=== PATIENT | female | born 1960 | race Caucasian/White ===

== ENCOUNTER → 2020-09-21 13:14 | Outpatient (BNVA) | payer OTHER, SELFPAY | PROVIDERS: PCP Family Medicine; Visit Provider Internal Medicine Cardiovascular Disease | DX: Z76.89 Persons encountering health services in other specified circumstances (principal) ==

== ENCOUNTER → 2020-10-19 10:58 | Outpatient (BNVA) | payer OTHER, SELFPAY | PROVIDERS: PCP Family Medicine; Visit Provider Internal Medicine | DX: Z76.89 Persons encountering health services in other specified circumstances (principal) ==

== ENCOUNTER 2020-11-03 10:31 | Outpatient (REF) | payer OTHER, SELFPAY ==
[2020-11-03 14:15] LABS: MANUAL DIFF FLAG NO
[2020-11-03 14:21] LABS: Basophils Percent Auto 0.6 % (0-2); Eosinophils Absolute Auto 0.3 X10*3/uL (0.0-0.4); Eosinophils Percent Auto 4.9 % (0-4); Hemoglobin 14.1 g/dl (12.0-16.0); Imm Gran Abs Auto 0.03 X10*3/uL (0.00-0.03); Imm Gran Pct Auto 0.5 % (0.0-0.4); Lymphocytes Absolute Auto 2.1 X10*3/uL (1.2-4.9); Lymphocytes Percent Auto 32.2 % (20-40); Mean Corpuscular HGB Conc 32.8 g/dl (31.0-35.0); Mean Corpuscular Hemoglobin 31.1 pg (27.0-33.0); Mean Corpuscular Volume 94.9 fL (80-98); Mean Platelet Volume 9.4 fL (9.4-12.3); Monocytes Absolute Auto 0.6 X10*3/uL (0.1-1.2); Monocytes Percent Auto 9.5 % (2-11); Neutrophils Absolute Auto 3.4 X10*3/uL (2.0-8.3); Neutrophils Percent Auto 52.3 % (45-73); Platelet Count 326 X10*3/uL (160-400); Red Blood Count 4.53 X10*6/uL (4.20-5.50); Red Cell Distribution Width 12.3 % (11.0-16.0); White Blood Count 6.5 X10*3/uL (4.8-10.8)
[2020-11-03 14:39] LABS: Blood Urea Nitrogen 8 mg/dL (9-16); Estimated Glomerular Filt Rate > 60
[2020-11-03 15:00] LABS: Free T4 (Free Thyroxine) 1.43 ng/dL (0.71-1.85)
== END 2020-11-03 10:32 | disposition home or self-care (01) ==
LOC: HO.10HDL 10:31
PROVIDERS: Absent Provider Internal Medicine; PCP Family Medicine; Visit Provider Family Medicine
DX: E03.9 Hypothyroidism, unspecified (principal); R06.02 Shortness of breath
CPT/HCPCS: 36415; 82565; 84439; 84520; 85025

== ENCOUNTER 2020-12-09 08:46 | Outpatient (REF) | payer OTHER, SELFPAY ==
--- NOTE | 2020-12-09 13:44 | MHC.AU.P13 ---
Hearing Aid Evaluation- Binaural Date of Visit: 12/09/20 Description of Hearing: Mild to moderate sensorineural hearing loss bilaterally Additional Information: Patient reports difficulty hearing conversation, hearing the television, and hearing on the phone. She has COPD and uses oxygen. The oxygen machine is a low, but steady, source of background noise. 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 She tried wearing ear plugs, but then found she could not hear alarms from the machines or hear others trying to get her attention. Hearing aid options were discussed. Patient would like rechargeable, as it would be easier for her needs. Hearing Instrument Selection: Right Ear: Cellar Worker: Phonak Model: Audeo P70-R Battery Size: Rechargeable Color: P12 Job Putter Up And Ticket Preparer: 1M Left Ear: Cellar Worker: Phonak Model: Audeo P70-R Battery Size: Rechargeable Color: P1 Job Putter Up And Ticket Preparer: 1M Plan: Action Taken/Action Needed: Hearing Fitting to be scheduled when materials arrive Diagnosis Code(s): Primary Diagnosis: H90.3 Bilateral Sensorineural Hearing Loss Signature: Provider: Erwin Kim, [facility]
== END 2020-12-09 08:47 | disposition home or self-care (01) ==
LOC: HO.HAP 08:46
PROVIDERS: Visit Provider Family Medicine
DX: Z46.1 Encounter for fitting and adjustment of hearing aid (principal); H90.3 Sensorineural hearing loss, bilateral
CPT/HCPCS: 92591

== ENCOUNTER 2020-12-17 08:38 | Outpatient (REF) | payer OTHER, SELFPAY ==
--- NOTE | 2020-12-17 10:35 | MHC.AU.P13 ---
Hearing Instrument Fitting- Adult- Binaural Date of Visit: 12/17/20 Hearing Instruments Dispensed: Right Ear: Reimbursement Representative: Phonak Model: Audeo P70-R Serial Number: [id number] Repair Warranty: 03/07/2024 Loss and Damage Warranty: 03/07/2024 Battery Size: Rechargeable Color: P12 Social Service Agency Director: 0M Type of Dome: Small Open Type of Wax Guard: CeruShield Left Ear: Reimbursement Representative: Phonak Model: Audeo P70-R Serial Number: [id number] RepairWarranty: 03/07/2024 Loss and Damage Warranty: 03/07/2024 Battery Size: Rechargeable Color: P1 Social Service Agency Director: 0M Type of Dome: Small Open Type of Wax Guard: CeruShield Summary of Fitting: Feedback conference manager run. Verifit performed and levels adjusted. Target gain is at 100%. Patient was pleased with the sound of the instruments and did not feel any additional changes were necessary. Hearing aid care and use were discussed and practiced. Hearing aids were paired to her phone. At this time, tap control is turned off. Volume button is activated. The mian was not downloaded, as patient does not feel she would use it often. Recommendations: Recommendations: A hearing instrument follow-up was scheduled. Diagnosis Code(s): Primary Diagnosis: H90.3 Bilateral Sensorineural Hearing Loss Signature: Provider: Erwin Kim, [facility]
== END 2020-12-17 08:39 | disposition home or self-care (01) ==
LOC: HO.HAP 08:38
PROVIDERS: Visit Provider Otolaryngology
DX: Z46.1 Encounter for fitting and adjustment of hearing aid (principal); H90.3 Sensorineural hearing loss, bilateral
CPT/HCPCS: V5011; V5020; V5160; V5261

== ENCOUNTER 2021-01-04 09:04 | Outpatient (REF) | payer OTHER, SELFPAY ==
--- NOTE | 2021-01-04 13:25 | MHC.AU.P13 ---
Hearing Instrument Follow-Up- Binaural Date of Visit: 01/04/21 Painter Touch Up Used: Right Ear: Shovel Logger: Phonak Model: Audeo P70-R Serial Number: [id number] Repair Warranty: 03/07/2024 Loss and Damage Warranty: 03/07/2024 Battery Size: Rechargeable Color: P12 Advanced Seal Delivery System: 0M Type of Dome: Small Open Type of Wax Guard: CeruShield Left Ear: Shovel Logger: Phonak Model: Audeo P70-R Serial Number: [id number] RepairWarranty: 03/07/2024 Loss and Damage Warranty: 03/07/2024 Battery Size: Rechargeable Color: P1 Advanced Seal Delivery System: 0M Type of Dome: Small Open Type of Wax Guard: CeruShield Follow-Up Summary: Patient reports the hearing aids have been helping significantly. She is able to hear her grandchildren and others without asking for repetition. 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 She finds some wetness on the left dome after using them. She also finds the right side seems to cut in and out. Hearing aids were inspected. Right hearing aid is working well for the moment. As a preventative measure, the right 0M garde manager was replaced. Wax trap changed in the left garde manager and domes replaced on both. Otoscopy performed. Dry, flaky skin noted in both canals, with mild redness. No wetness noted at the moment. Impressions were taken bilaterally without incident for custom slim tips. We will see if a different, smoother material might help avoid some of the itchiness/irritation against the psoriasis. We will also see if this helps with perceived intermittency in the right instrument, which may be a fit issue. Recommendations: Patient will be contacted when materials have arrived. A follow-up with PCP or referral to Ear, Nose, and Throat may be warranted for medical management of psoriasis in ear canals. Diagnosis Code(s): Primary Diagnosis: H90.3 Bilateral Sensorineural Hearing Loss Signature: Provider: Erwin Kim, [facility]
== END 2021-01-04 09:05 | disposition home or self-care (01) ==
LOC: HO.HAP 09:04
PROVIDERS: Visit Provider Family Medicine
DX: Z46.1 Encounter for fitting and adjustment of hearing aid (principal); H90.3 Sensorineural hearing loss, bilateral
CPT/HCPCS: V5275

== ENCOUNTER → 2021-01-14 11:19 | Outpatient (BNVA) | payer OTHER, SELFPAY | PROVIDERS: PCP Family Medicine; Visit Provider Internal Medicine | DX: J44.9 Chronic obstructive pulmonary disease, unspecified (principal); J96.91 Respiratory failure, unspecified with hypoxia; Z79.51 Long term (current) use of inhaled steroids; Z79.899 Other long term (current) drug therapy; Z87.891 Personal history of nicotine dependence | CPT/HCPCS: 99212 ==

== ENCOUNTER 2021-01-15 11:05 | Outpatient (REF) | payer OTHER, SELFPAY ==
--- NOTE | 2021-01-15 14:24 | MHC.AU.HFU ---
Hearing Instrument Follow-Up- Binaural Date of Visit: 01/15/21 Right Ear: Industrial Illuminating Engineer: Phonak Model: Audeo P70-R Serial Number: [id number] Repair Warranty: 03/07/2024 Loss and Damage Warranty: 03/07/2024 Battery Size: Rechargeable Color: P12 Cardboard Cutter: 0M Type of Mold: Slim Tip Type of Wax Guard: CeruShield Left Ear: Industrial Illuminating Engineer: Phonak Model: Audeo P70-R Serial Number: [id number] RepairWarranty: 03/07/2024 Loss and Damage Warranty: 03/07/2024 Battery Size: Rechargeable Color: P1 Cardboard Cutter: 0M Type of Mold: Slim Tip Type of Wax Guard: CeruShield Follow-Up Summary: Patient's new slim tips were placed on her receivers. Patient reported they felt much more comfortable. She will let us know if irritation persists once she has been wearing them for a longer period of time. Recommendations: Hearing instrument follow-up or maintenance as needed. Please contact our clinic with any questions or concerns. Patient will call if problems persist. Diagnosis Code(s): Primary Diagnosis: H90.3 Bilateral Sensorineural Hearing Loss Signature: Provider: Erwin Kim, [facility]
== END 2021-01-15 11:06 | disposition home or self-care (01) ==
LOC: HO.HAP 11:05
PROVIDERS: Visit Provider Otolaryngology
DX: Z46.1 Encounter for fitting and adjustment of hearing aid (principal); H90.3 Sensorineural hearing loss, bilateral
CPT/HCPCS: V5264

== ENCOUNTER 2021-03-31 09:51 | Outpatient (REF) | payer OTHER, SELFPAY ==
[2021-03-31 13:54] LABS: Alanine Aminotransferase 14 U/L (0-31); Anion Gap 15 (12-20); Blood Urea Nitrogen 7 mg/dL (9-16); Carbon Dioxide 30 mmol/L (22-29); Chloride 100 mmol/L (96-108); Estimated Glomerular Filt Rate > 60; Potassium 4.6 mmol/L (3.3-5.1); Sodium 140 mmol/L (135-145)
== END 2021-03-31 09:52 | disposition home or self-care (01) ==
LOC: HO.10HDL 09:51
PROVIDERS: Visit Provider Family Medicine
DX: E78.00 Pure hypercholesterolemia, unspecified (principal); I10 Essential (primary) hypertension; E03.9 Hypothyroidism, unspecified; Z79.899 Other long term (current) drug therapy
CPT/HCPCS: 36415; 80051; 82550; 82565; 84439; 84460; 84520

== ENCOUNTER → 2021-05-20 11:05 | Outpatient (BNVA) | payer OTHER, SELFPAY | PROVIDERS: PCP Family Medicine; Visit Provider Internal Medicine | DX: J96.91 Respiratory failure, unspecified with hypoxia (principal); J44.9 Chronic obstructive pulmonary disease, unspecified | CPT/HCPCS: 99212 ==

== ENCOUNTER → 2021-06-03 12:44 | Outpatient (BNVA) | payer OTHER, SELFPAY | PROVIDERS: PCP Family Medicine; Visit Provider Internal Medicine Cardiovascular Disease | DX: I42.2 Other hypertrophic cardiomyopathy (principal) | CPT/HCPCS: 93005; 99212 ==

== ENCOUNTER 2021-09-01 14:16 | Outpatient (REF) | payer OTHER, SELFPAY ==
--- NOTE | ~2021-09-01 | MM_ITS ---
EXAMINATION: MM SCREENING DIGITAL BREAST TOMOSYNTHESIS, BILATERAL CLINICAL INFORMATION: Screening. Asymptomatic. The lifetime risk of breast cancer based on the Tyrer-Cuzick Model is 5%. COMPARISON: Mammography: 06/12/2020, 10/02/2018, 08/09/2018, 07/20/2017 TECHNIQUE: Digital breast tomosynthesis is performed in both the craniocaudal and mediolateral oblique views along with computer-aided detection (CAD). Synthesized 2D images are generated from the tomosynthesis. Additional right CC view is provided. FINDINGS: There are scattered areas of fibroglandular density (ACR BI-RADS breast composition Category b). There are no significant masses, abnormal calcifications, or other abnormalities. MM/MM tomosynthesis screening BI IMPRESSION: No mammographic evidence of malignancy. ASSESSMENT: BI-RADS 1: Negative RECOMMENDATION: Routine annual mammography screening. This patient's information was entered into a reminder system with a target due date for their next mammogram.
== END 2021-09-01 14:17 | disposition home or self-care (01) ==
LOC: HO.MAMMO 14:16
PROVIDERS: Visit Provider Family Medicine
DX: Z12.31 Encounter for screening mammogram for malignant neoplasm of breast (principal)
CPT/HCPCS: 77063; 77067

== ENCOUNTER 2021-09-30 13:27 | Emergency (ER) | payer OTHER, SELFPAY ==
--- NOTE | ~2021-09-30 | XR_ITS ---
EXAMINATION: XR CHEST CLINICAL INFORMATION: Shortness of breath COMPARISON: January 02, 2019 and studies dating back to January 12, 2015 TECHNIQUE: AP portable view of the chest was obtained. FINDINGS: No confluent pneumonitis identified. Heart normal size. No evidence of pneumothorax or pleural effusion. No evidence of pulmonary edema. There are some increased interstitial markings present consistent with some degree of chronic interstitial lung disease. There are also noted to be changes of emphysema about the upper lobes bilaterally. XR/XR chest 1V IMPRESSION: Mild interstitial lung disease. Changes of emphysema.
[2021-09-30 13:33] VITALS: BP 129/79; BP 156/80; PULSE 75; PULSE 84; RESP 20; TEMP 36.6; O2SAT 94; O2SAT 95; BMI 26.4
--- NOTE | 2021-09-30 13:36 | ECG_ITS ---
Test Reason : DYSPNEA Blood Pressure : / mmHG Vent. Rate : 069 BPM Atrial Rate : 069 BPM P-R Int : 116 ms QRS Dur : 084 ms QT Int : 404 ms P-R-T Axes : 071 062 072 degrees QTc Int : 432 ms Normal sinus rhythm Normal ECG When compared with ECG of 02-JAN-2019 13:26, No significant change was found Referred By: Generic ED Physician Electronically Signed By:ALO MOTA
--- NOTE | 2021-09-30 14:05 | ED.SOB ---
HPI - SOB/Dyspnea General Chief Complaint: Dyspnea Stated Complaint: SOB Time Seen by Provider: 09/30/21 14:05 History of Present Illness HPI Narrative: Patient is 61 years old with a history of COPD. Presented today with having gone to urgent care for a COVID test. Patient received her coronavirus vaccine. Patient grandson tested positive for COVID. She was in contact with him. Patient denies any chest pain shortness of breath diaphoresis. While trying to get her walker she got very short of breath. Requiring additional oxygen. His symptoms subsequently subsided. Denies any chest pain the knees episodes. Had a history of the same thing in the past. No fever no chills. No coughing no congestion or upper respiratory symptoms. COVID test was actually done at the urgent care center was negative. No vomiting no diaphoresis. No new medication. Patient from home. Related Data Home Medications Medication Instructions Recorded Confirmed albuterol sulfate 90 mcg/actuation 2 puff PO QID PRN 09/21/20 06/03/21 aerosol inhaler levothyroxine 100 mcg tablet 100 mcg PO DAILY 09/21/20 06/03/21 pantoprazole 40 mg tablet,delayed 40 mg PO DAILY 09/21/20 06/03/21 release sertraline 50 mg tablet 50 mg PO DAILY 09/21/20 06/03/21 simvastatin 40 mg tablet 40 mg PO BEDTIME 09/21/20 06/03/21 Previous Rx's Medication Instructions Recorded umeclidinium 62.5 mcg/actuation 1 inh INHALATION DAILY 30 Days #30 09/28/20 blister powder for inhalation ea fluticasone furoate 200 1 inh INHALATION DAILY #60 cap 02/10/21 mcg-vilanterol 25 mcg/dose inhalation powder (Breo Ellipta) Allergies Allergy/AdvReac Type Severity Reaction Status Date / Time carvedilol Allergy Unknown chest Verified 06/03/21 13:05 tighness,sob,difficulty breathing lorazepam [Ativan] Allergy Unknown affects Verified 06/03/21 13:05 psychy Review of Systems Review of Systems: No fever no chills Positive generalized malaise No cough no congestion or upper respiratory symptoms. No diaphoresis. Yes all other systems are reviewed and are negative PMFSH Past Medical History Attestation statement: The following information was validated with the patient. Source: unable to obtain Medical History (Updated 09/30/21 @ 16:19 by Evelin Mobley MD) Respiratory failure with hypoxia Surgical History History of cardiac cath History of skin graft Hx of eye surgery Family History Family History Father HTN (hypertension) Diabetes CVD (cardiovascular disease) Mother Diabetes HTN (hypertension) Social History Social History Alcohol intake: never Patient Tobacco Use Status: Former Tobacco user Quit Date: 2014 Years Smoked: 35+ Advance Directives: Yes Advance Directives Information Provided: No Advance Directives on File: No Patient : No Physical Exam Vital Signs: Vital Signs: Last Vital Signs Temp 98 F 09/30/21 13:33 Pulse 70 09/30/21 14:53 Resp 20 09/30/21 14:53 BP 112/62 09/30/21 14:53 Pulse Ox 94 09/30/21 14:53 Oxygen Flow Rate 2 09/30/21 13:33 BMI result Body Mass Index 26.4 Appearance: Alert. Oriented X3. No acute distress. Eyes: Pupils equal, round and reactive to light. ENT: Pharynx normal. Neck: Normal inspection. Neck supple. No lymph nodes noted. No crepitus CVS: Normal heart rate and rhythm. Pulses normal. Normal S1 and S2 Respiratory: Diminished breath sounds bilaterally. Abdomen: Soft and nontender. No rigidity. No distention. good BS x4 Skin: Skin warm and dry. Normal skin color. Normal skin turgor. Extremities: No lower extremity edema. Neurovascular intact to all extremities. No Lacerations. No Rash Neuro: Oriented X 3. No motor deficit. No sensory deficit. Moving all extermities. No slurred speech MDM - SOB/Dyspnea MDM Narrative Medical decision making narrative: Patient's EKG showed a sinus pattern heart rate is 70 ND QRS QT within normal limits there is no significant change when comparing her EKG to previous. Patient has no symptoms currently. Has a history of having shortness of breath when she exerts herself. Likely this is baseline will get x-ray anyway given her constant O2 dependency. Will check baseline electrolytes. Currently in stable condition. Electrolytes a baseline. Hemoglobin 13. No distress. O2 sat remains at 95% on 2 L. this is baseline for patient. Will discharge patient home. Lab Data Result diagrams: 09/30/21 14:49 09/30/21 15:43 Labs: Lab Results 09/30/21 09/30/21 Range/Units 14:49 15:43 WBC 10.7 (4.8-10.8) X10*3/uL RBC 4.20 (4.20-5.50) X10*6/uL Hgb 13.0 (12.0-16.0) g/dl Hct 39.9 (37.0-47.0) % MCV 95.0 (80.0-98.0) fL MCH 31.0 (27.0-33.0) pg MCHC 32.6 (31.0-35.0) g/dl RDW 13.2 (11.0-16.0) % Plt Count 327 (160-400) X10*3/uL MPV 9.0 L (9.4-12.3) fL Immature Gran % (Auto) 0.4 (0.0-0.4) % Neut % (Auto) 67.3 (45-73) % Lymph % (Auto) 14.2 L (20-40) % [place] % (Auto) 7.5 (2-11) % Eos % (Auto) 10.0 H (0-4) % Baso % (Auto) 0.6 (0-2) % Lymph # (Auto) 1.5 (1.2-4.9) X10*3/uL [place] # (Auto) 0.8 (0.1-1.2) X10*3/uL Eos # (Auto) 1.1 H (0.0-0.4) X10*3/uL Baso # (Auto) 0.1 (0.0-0.2) X10*3/uL Abs Immat Gran (auto) 0.04 H (0.00-0.03) X10*3/uL Absolute Neuts (auto) 7.2 (2.0-8.3) x10*3/uL Absolute Nucleated RBC 0.000 (0.0-0.012) X10*3/uL Nucleated RBC % (auto) 0.0 (0.0-0.2) /100WBC Sodium 140 (135-145) mmol/L Potassium 4.7 (3.3-5.1) mmol/L Chloride 101 (96-108) mmol/L Carbon Dioxide 32 H (22-29) mmol/L Anion Gap 12 (12-20) BUN 11 (9-16) mg/dL Creatinine 0.64 (0.5-1.4) mg/dL Estim Creat Clear Calc 75.4 Estimated GFR > 60 Random Glucose 96 (60-115) mg/dL Calcium 9.2 (8.4-10.2) mg/dL Discharge Plan Discharge Clinical Impression: COPD (chronic obstructive pulmonary disease) Patient Disposition: Home, Self-Care Instructions: COPD (Chronic Obstructive Pulmonary Disease) (ED) Prescriptions: No Action umeclidinium 62.5 mcg/actuation blister with device 1 inh inhalation DAILY 30 Days Qty: 30 RF: 3 fluticasone furoate-vilanterol [Breo Ellipta] 200-25 mcg/dose blister with device 1 inh inhalation DAILY Qty: 60 RF: 3 pantoprazole 40 mg tablet,delayed release (DR/EC) 40 mg PO DAILY RF: 0 simvastatin 40 mg tablet 40 mg PO BEDTIME RF: 0 albuterol sulfate 90 mcg/actuation HFA aerosol inhaler 2 puff PO QID PRNRF: 0 levothyroxine 100 mcg tablet 100 mcg PO DAILY RF: 0 sertraline 50 mg tablet 50 mg PO DAILY RF: 0 Referrals: Bakari Lozano MD [Primary Care Provider] - 2 days
[2021-09-30 14:53] VITALS: BP 112/62; PULSE 70; RESP 20; O2SAT 94
[2021-09-30 14:57] LABS: MANUAL DIFF FLAG NO
[2021-09-30 14:58] LABS: Basophils Absolute Auto 0.1 X10*3/uL (0.0-0.2); Basophils Percent Auto 0.6 % (0-2); Eosinophils Absolute Auto 1.1 X10*3/uL (0.0-0.4); Hematocrit 39.9 % (37.0-47.0); Imm Gran Abs Auto 0.04 X10*3/uL (0.00-0.03); Imm Gran Pct Auto 0.4 % (0.0-0.4); Lymphocytes Absolute Auto 1.5 X10*3/uL (1.2-4.9); Lymphocytes Percent Auto 14.2 % (20-40); Mean Corpuscular HGB Conc 32.6 g/dl (31.0-35.0); Monocytes Absolute Auto 0.8 X10*3/uL (0.1-1.2); Monocytes Percent Auto 7.5 % (2-11); Neutrophils Absolute Auto 7.2 x10*3/uL (2.0-8.3); Neutrophils Percent Auto 67.3 % (45-73); Platelet Count 327 X10*3/uL (160-400); Red Cell Distribution Width 13.2 % (11.0-16.0); White Blood Count 10.7 X10*3/uL (4.8-10.8)
[2021-09-30 16:11] LABS: Anion Gap 12 (12-20); Blood Urea Nitrogen 11 mg/dL (9-16); Calcium 9.2 mg/dL (8.4-10.2); Carbon Dioxide 32 mmol/L (22-29); Chloride 101 mmol/L (96-108); Creatinine Clr Calc Pharmacy 75.4; Estimated Glomerular Filt Rate > 60; Glucose Random 96 mg/dL (60-115); Potassium 4.7 mmol/L (3.3-5.1); Sodium 140 mmol/L (135-145)
== END 2021-09-30 17:15 | disposition home or self-care (01) ==
PROVIDERS: Emergency Provider Emergency Medicine Emergency Medical Services; PCP Family Medicine
DX: J44.9 Chronic obstructive pulmonary disease, unspecified (principal)
CPT/HCPCS: 36415; 71045; 80048; 85025; 93005; 99283; 99284

== ENCOUNTER 2021-10-02 16:29 | Emergency (ER) | payer OTHER, SELFPAY ==
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
--- NOTE | 2021-10-02 17:04 | ECG_ITS ---
Test Reason : CHEST PAIN Blood Pressure : / mmHG Vent. Rate : 081 BPM Atrial Rate : 081 BPM P-R Int : 122 ms QRS Dur : 084 ms QT Int : 394 ms P-R-T Axes : 053 044 060 degrees QTc Int : 457 ms Artifact in tracing Normal sinus rhythm Normal ECG When compared with ECG of 30-SEP-2021 13:41, No significant change was found Referred By: Idalia Junior Electronically Signed By:ALO MOTA
[2021-10-02 17:10] VITALS: BP 134/77; BP 144/87; PULSE 85; RESP 22; O2SAT 96; BMI 25.4
[2021-10-02 17:12] LABS: MANUAL DIFF FLAG NO
[2021-10-02 17:13] LABS: Basophils Absolute Auto 0.1 X10*3/uL (0.0-0.2); Basophils Percent Auto 0.3 % (0-2); Eosinophils Absolute Auto 0.4 X10*3/uL (0.0-0.4); Eosinophils Percent Auto 1.8 % (0-4); Hematocrit 39.6 % (37.0-47.0); Imm Gran Abs Auto 0.14 X10*3/uL (0.00-0.03); Imm Gran Pct Auto 0.7 % (0.0-0.4); Lymphocytes Absolute Auto 1.4 X10*3/uL (1.2-4.9); Lymphocytes Percent Auto 6.8 % (20-40); Mean Corpuscular HGB Conc 32.8 g/dl (31.0-35.0); Mean Corpuscular Hemoglobin 31.5 pg (27.0-33.0); Mean Corpuscular Volume 95.9 fL (80.0-98.0); Mean Platelet Volume 8.8 fL (9.4-12.3); Monocytes Absolute Auto 1.1 X10*3/uL (0.1-1.2); Monocytes Percent Auto 5.3 % (2-11); Neutrophils Absolute Auto 17.9 x10*3/uL (2.0-8.3); Neutrophils Percent Auto 85.1 % (45-73); Platelet Count 334 X10*3/uL (160-400); Red Blood Count 4.13 X10*6/uL (4.20-5.50); White Blood Count 21.1 X10*3/uL (4.8-10.8)
[2021-10-02 17:31] LABS: Alanine Aminotransferase 20 U/L (0-31); Albumin Level 4.1 g/dL (3.5-5.0); Alkaline Phosphatase 89 U/L (39-117); Anion Gap 13 (12-20); Aspartate Amino Transferase 25 U/L (5-31); Bilirubin Total 0.3 mg/dL (0.0-1.0); Blood Urea Nitrogen 13 mg/dL (9-16); Calcium 9.3 mg/dL (8.4-10.2); Carbon Dioxide 28 mmol/L (22-29); Chloride 102 mmol/L (96-108); Creatinine Clr Calc Pharmacy 67.7; Estimated Glomerular Filt Rate > 60; Glucose Random 123 mg/dL (60-115); Magnesium 2.1 mg/dL (1.6-2.6); Potassium 4.6 mmol/L (3.3-5.1); Sodium 138 mmol/L (135-145); Total Protein 7.6 g/dL (6.5-8.0)
[2021-10-02] MEDS: iohexoL 350 MG/ML 100 ML INFUS..BTL 85 ML IV (17:41)
[2021-10-02 17:44] VITALS: RESP 22
[2021-10-02] MEDS: ondansetron HCL 4 MG/2 ML VIAL IVPUSH (17:44)
[2021-10-02] MEDS: HYDROmorphone HCl 0.5 MG/0.5 ML SYRINGE IVPUSH (17:44)
[2021-10-02 18:10] LABS: INTERNATIONAL NORM RATIO 1.1 (0.9-1.1); Prothrombin Time 12.2 SEC (9.9-13.0)
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
[2021-10-02 19:02] VITALS: BP 129/74; PULSE 82; RESP 20; TEMP 36.7; O2SAT 90
[2021-10-02 19:19] VITALS: BP 143/73; PULSE 87; RESP 18; O2SAT 90
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
[2021-10-02 19:29] VITALS: RESP 15
[2021-10-02] MEDS: HYDROmorphone HCl 1 MG/ML SYRINGE IVPUSH (19:29)
[2021-10-02 19:35] VITALS: PULSE 86; O2SAT 93
[2021-10-02] MEDS: Albuterol Sulfate (0.083%) 2.5 MG/3 ML VIAL.NEB 5 MG INHALE (19:35)
--- NOTE | 2021-10-02 19:36 | PC.NURSE ---
RT to bedside to administer neb tx, told this RN not to administer MDI tx at this time. Pt receiving neb tx at this time, medicated for pain, reports improvement at this time to 5/10 pain. Pt continues to await ALS transport to [facility].
[2021-10-02 19:41] LABS: COVID-19 Test Negative (Negative)
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
== END 2021-10-02 21:28 | disposition short-term general hospital (02) ==
PROVIDERS: Physician Assistant Medical; Emergency Provider Internal Medicine; PCP Family Medicine
DX: S27.809A Unspecified injury of diaphragm, initial encounter (principal); S13.4XXA Sprain of ligaments of cervical spine, initial encounter; S61.412A Laceration without foreign body of left hand, initial encounter; S30.1XXA Contusion of abdominal wall, initial encounter; S60.222A Contusion of left hand, initial encounter; S30.811A Abrasion of abdominal wall, initial encounter; V43.62XA Car passenger injured in collision with other type car in traffic accident, initial encounter; R51.9 Headache, unspecified; R06.02 Shortness of breath; Z20.822 Contact with and (suspected) exposure to COVID-19; Y93.89 Activity, other specified; Y92.414 Local residential or business street as the place of occurrence of the external cause; Y99.9 Unspecified external cause status
CPT/HCPCS: 36415; 70450; 71250; 72125; 73110; 73130; 74177; 80053; 83735; 85025; 85610; 87635; 93005; 94640; 96374; 96375; 99285; 99291; J1170; J2405; Q9967

== ENCOUNTER → 2021-10-12 15:43 | Outpatient (BNVA) | payer OTHER, SELFPAY | PROVIDERS: PCP Family Medicine; Visit Provider Internal Medicine | DX: J44.9 Chronic obstructive pulmonary disease, unspecified (principal); J96.91 Respiratory failure, unspecified with hypoxia | CPT/HCPCS: Q3014 ==

== ENCOUNTER → 2021-11-10 10:58 | Outpatient (BNVA) | payer OTHER, SELFPAY | PROVIDERS: PCP Family Medicine; Visit Provider Internal Medicine | DX: J44.9 Chronic obstructive pulmonary disease, unspecified (principal); J96.91 Respiratory failure, unspecified with hypoxia; R91.1 Solitary pulmonary nodule | CPT/HCPCS: 99212 ==

== ENCOUNTER 2021-11-23 11:41 | Outpatient (REF) | payer OTHER, SELFPAY ==
[2021-11-23 14:05] LABS: Alanine Aminotransferase 13 U/L (0-31); Aspartate Amino Transferase 15 U/L (5-31)
[2021-11-23 14:30] LABS: Free T4 (Free Thyroxine) 1.24 ng/dL (0.71-1.85); Thyroid Stimulating Hormone 0.24 uIU/mL (0.32-4.0)
== END 2021-11-23 11:42 | disposition home or self-care (01) ==
LOC: HO.10HDL 11:41
PROVIDERS: Visit Provider Family Medicine
DX: E03.9 Hypothyroidism, unspecified (principal); E78.00 Pure hypercholesterolemia, unspecified; Z79.899 Other long term (current) drug therapy
CPT/HCPCS: 36415; 84439; 84443; 84450; 84460

== ENCOUNTER → 2021-12-21 14:13 | Outpatient (BNVA) | payer OTHER, SELFPAY | PROVIDERS: PCP Family Medicine; Visit Provider Internal Medicine | DX: Z13.89 Encounter for screening for other disorder (principal) | CPT/HCPCS: Q3014 ==

== ENCOUNTER → 2022-02-08 13:42 | Outpatient (BNVA) | payer OTHER, SELFPAY | PROVIDERS: PCP Family Medicine; Visit Provider Internal Medicine | DX: J44.9 Chronic obstructive pulmonary disease, unspecified (principal); J96.91 Respiratory failure, unspecified with hypoxia; R91.1 Solitary pulmonary nodule; Z79.899 Other long term (current) drug therapy; Z87.891 Personal history of nicotine dependence; Z99.81 Dependence on supplemental oxygen | CPT/HCPCS: 99212 ==

== ENCOUNTER 2022-03-02 09:23 | Outpatient (REF) | payer OTHER, SELFPAY ==
--- NOTE | ~2022-03-02 | CT_ITS ---
EXAMINATION: CT CHEST WITHOUT CONTRAST CLINICAL INFORMATION: Pulmonary nodule. COMPARISON: Previous chest CT September 2021 and chest CTA from 2017. TECHNIQUE: Multidetector volumetric CT imaging of the chest was done. Axial MIP volume rendering provided. Sagittal and coronal reformatted images were obtained. This CT examination was performed using dose optimization techniques as appropriate, variously including the following: *Automated exposure control *Adjustment of mA and/or kV according to patient size (this includes techniques or standardized protocols for targeted exams where dose is matched to indication/reason for exam; i.e. extremities or head) *Use of iterative reconstruction technique DLP: 169 mGy-cm FINDINGS: LUNGS: There is evidence of severe centrilobular emphysema. The previously identified patchy areas of airways disease appear improved. Previously identified semisolid 8 mm ground-glass attenuation nodule in the posterior basal segment of the right lower lobe is no longer seen. There is a 6 x 8 mm right lower lobe nodule axial image 123 series 8. This is stable from previous chest CT scans going back to chest CTA from 2017. There is a 7 x 10 mm left upper lobe nodule axial image 96 series 8. This is stable from most recent exam September 2021, however, is new from older CTA of the chest July 2018. There is adjacent focal bronchiectasis in the left upper lobe. There is mild focal bronchiectasis seen in the right middle lobe. There is a 2 mm calcified right middle lobe nodule axial image 140 series 8 that is stable. There is minimal scarring or chronic subsegmental atelectasis in the posterior segment of the right upper lobe adjacent to the major fissure axial image 64 series 8 that is stable. MEDIASTINUM: There is shotty mediastinal lymphadenopathy that is stable. No enlarged lymph nodes are seen. Difficult to evaluate for hilar adenopathy without IV contrast. Normal heart size. Mild coronary artery calcification. No pericardial effusion. Normal caliber thoracic aorta. PLEURA: There is no pleural effusion. No pleural mass or thickening. AXILLA: No lymphadenopathy. UPPER ABDOMEN: Unremarkable. OSSEOUS STRUCTURES: There are degenerative changes of the spine. CT/CT chest wo con IMPRESSION: Severe emphysema. Improved airways disease from September 2021 exam. Stable 6 x 8 mm right lower lobe nodule from previous exams going back to old chest CTA July 2018. 7 x 10 mm lingular nodule stable from September [address], however, new from older chest CTA July 2018. Continued chest CT followup, PET/CT scan or tissue sampling should be considered. Areas of mild focal bronchiectasis in the lingula and right middle lobe. Fleischner guidelines were followed. Findings will be communicated by the [place] work flow food services manager.
== END 2022-03-02 09:24 | disposition home or self-care (01) ==
LOC: HO.CT 09:23
PROVIDERS: PCP Family Medicine; Visit Provider Internal Medicine
DX: J44.9 Chronic obstructive pulmonary disease, unspecified (principal); R91.1 Solitary pulmonary nodule
CPT/HCPCS: 71250

== ENCOUNTER → 2022-03-30 12:51 | Outpatient (BNVA) | payer OTHER, SELFPAY | PROVIDERS: PCP Family Medicine; Referring Provider Family Medicine; Visit Provider Nurse Practitioner Family | DX: I42.2 Other hypertrophic cardiomyopathy (principal); J44.9 Chronic obstructive pulmonary disease, unspecified; J96.91 Respiratory failure, unspecified with hypoxia | CPT/HCPCS: 99212 ==

== ENCOUNTER → 2022-04-11 11:24 | Outpatient (BNVA) | payer OTHER, SELFPAY | PROVIDERS: PCP Family Medicine; Visit Provider Internal Medicine | DX: J44.9 Chronic obstructive pulmonary disease, unspecified (principal); J96.91 Respiratory failure, unspecified with hypoxia; R91.1 Solitary pulmonary nodule; Z79.899 Other long term (current) drug therapy | CPT/HCPCS: 94618; 99212 ==

== ENCOUNTER 2022-05-09 10:19 | Outpatient (REF) | payer OTHER, SELFPAY ==
[2022-05-09 13:48] LABS: MANUAL DIFF FLAG NO
[2022-05-09 14:00] LABS: Basophils Absolute Auto 0.1 X10*3/uL (0.0-0.2); Basophils Percent Auto 0.8 % (0-2); Eosinophils Absolute Auto 0.5 X10*3/uL (0.0-0.4); Eosinophils Percent Auto 7.4 % (0-4); Hematocrit 39.5 % (37.0-47.0); Hemoglobin 12.5 g/dl (12.0-16.0); Imm Gran Abs Auto 0.03 X10*3/uL (0.00-0.03); Imm Gran Pct Auto 0.5 % (0.0-0.4); Lymphocytes Absolute Auto 1.7 X10*3/uL (1.2-4.9); Lymphocytes Percent Auto 25.6 % (20-40); Mean Corpuscular HGB Conc 31.6 g/dl (31.0-35.0); Mean Corpuscular Hemoglobin 29.6 pg (27.0-33.0); Mean Corpuscular Volume 93.6 fL (80.0-98.0); Mean Platelet Volume 9.3 fL (9.4-12.3); Monocytes Absolute Auto 0.6 X10*3/uL (0.1-1.2); Monocytes Percent Auto 8.4 % (2-11); Neutrophils Absolute Auto 3.8 x10*3/uL (2.0-8.3); Neutrophils Percent Auto 57.3 % (45-73); Platelet Count 313 X10*3/uL (160-400); Red Blood Count 4.22 X10*6/uL (4.20-5.50); White Blood Count 6.6 X10*3/uL (4.8-10.8)
[2022-05-09 14:16] LABS: Alanine Aminotransferase 17 U/L (0-31); Aspartate Amino Transferase 17 U/L (5-31); Estimated Glomerular Filt Rate > 60
[2022-05-09 14:30] LABS: Free T4 (Free Thyroxine) 1.28 ng/dL (0.71-1.85); Thyroid Stimulating Hormone 0.82 uIU/mL (0.32-4.0)
[2022-05-10 09:20] LABS: Blood Urea Nitrogen 6 mg/dL (9-16)
== END 2022-05-09 10:20 | disposition home or self-care (01) ==
LOC: HO.10HDL 10:19
PROVIDERS: Visit Provider Family Medicine
DX: R06.02 Shortness of breath (principal); E03.9 Hypothyroidism, unspecified; E78.00 Pure hypercholesterolemia, unspecified; Z79.899 Other long term (current) drug therapy
CPT/HCPCS: 36415; 82550; 82565; 84439; 84443; 84450; 84460; 84520; 85025

== ENCOUNTER → 2022-05-20 09:28 | Outpatient (REF) | payer OTHER, SELFPAY ==
--- NOTE | 2022-05-20 09:31 | CA_ITS ---
Transthoracic Echocardiogram Patient (Last, First, Middle): Adri Daniel A Gender: Female Date of : 1960 Age: 62 Procedure Date: 05/20/2022 Procedure Type: Transthoracic Echocardiogram Location: OP Height: 152.4 cm Weight: 63.5 kg BSA: 1.60 m2 Heart Rate: 69 bpm BP: 128 / 68 mmHg Learning [employer] Specialist: SB Referring MD: Denise Estrada QUAIL FARMERSarbjit Symptoms: I42.2 - Other hypertrophic cardiomyopathy Study Quality: Technically Difficult/Unable to obtain IV access ECG Rhythm: Sinus Conclusions: - Normal left ventricular size and systolic function. There is mildly increased left ventricular wall thickness. The visually estimated ejection fraction is between 55-60%. - E/E prime ratio is between 8 and 15 consistent with indeterminate filling pressures. - Normal right ventricular cavity size and systolic function. - The left atrium is mildly dilated. The right atrium is normal in size. Findings Left Ventricle Normal left ventricular size and systolic function. There is mildly increased left ventricular wall thickness. The visually estimated ejection fraction is between 55-60%. Regional wall motion abnormalities can not be excluded due to suboptimal endocardial definition. Abnormal diastolic function is noted. Spectral Doppler is indicative of a pseudonormal filling pattern. E/E prime ratio is between 8 and 15 consistent with indeterminate filling pressures. Right Ventricle Normal right ventricular cavity size and systolic function. Atria The left atrium is mildly dilated. The right atrium is normal in size. Aortic Valve The aortic valve was not well visualized. There is no aortic valve stenosis. There is no aortic valve regurgitation. Mitral Valve There is moderate mitral annular calcification. There is no mitral valve regurgitation. There is no mitral valve stenosis. Pulmonic Valve The pulmonic valve is likely normal. Tricuspid Valve Normal tricuspid valve structure and function. There is trace tricuspid valve regurgitation. Tricuspid regurgitation envelope is inadequate for calculation of right ventricular systolic pressure. Normal right atrial pressure. Great Vessels All visible segments of the aorta are normal in size. Venous The inferior vena cava is normal in size and collapses greater than 50% with inspiration. Pericardium/Pleural There is no evidence of pericardial effusion. Measurements 2D Linear Measurements IVSd: 0.95 0.6-0.9/0.6-1.0 cm LVIDd: 4.64 3.9-5.3/4.2-5.9 cm LVIDd Index: 2.90 2.4-3.2/2.2-3.1 cm/m2 LVIDs: 3.14 2.0-3.6 cm LVPWd: 0.60 0.7-1.1 cm LA Diam: 4.00 2.7-3.8/3.0-4.0 cm LAIDs Index: 2.50 1.5-2.3 cm/m2 LV Mass: 142.65 67-162/88-224 g LV Mass Index: 89.16 43-95/49-115 g/m2 LVOT Diam: 2.00 3.0+(-)1.3 cm 2D Systolic Function EF 4C: 54.80 >55% EF 2C: 53.30 >55% EF BiP: 53.80 >55% Mitral Valve MV Pk E: 1.10 MV PK A: 1.05 MV Decel Time: 151.00 E/A: 1.00 E'Lateral: 8.05 E'Medial: 4.68 E/E' Med: 23.50 E/E' Lat: 13.70 PHT: 44.00 MVA PHT: 5.00 Decel [place]: 7.28 Aortic Valve AoV Pk Sylvester: 1.25 AoV Mn Sylvester: 0.79 AoV VTI: 0.27 AoV Pk Grad: 6.00 Aov Mn Grad: 3.00 MALLIKA Cont.VTI: 2.64 LVOT LVOT Pk Sylvester: 0.98 LVOT Mn Sylvester: 0.66 LVOT VTI: 0.23 LVOT Pk Grad: 4.00 LVOT Mn Grad: 2.00 LVOT Diam: 2.00 LVOT Area: 3.14 Diastolic Function MV Pk E: 1.10 MV Pk A: 1.05 E/A: 1.00 E'Medial: 4.68 E/E' Med: 23.50 E' Laterial: 8.05 E/E' Lat: 13.70 Right Ventricle TAPSE (mm): 16.30 TVS' Sylvester: 11.60 Tricuspid Valve RA Press: 3.00 Great Vessels Aorta Sinus of Valsalva: 3.00 2.0-3.5 cm Updated in Other Vendor System with Status of Final Gerson Lepe MD electronically signed on 05/22/2022 1:10:22 PM with status of Final
== END ==
LOC: HO.CARD 09:28
PROVIDERS: PCP Family Medicine; Visit Provider Nurse Practitioner Family
DX: I42.2 Other hypertrophic cardiomyopathy (principal); J44.9 Chronic obstructive pulmonary disease, unspecified
CPT/HCPCS: 93306

== ENCOUNTER 2022-07-28 09:38 | Outpatient (REF) | payer OTHER, SELFPAY ==
--- NOTE | ~2022-07-28 | CT_ITS ---
EXAMINATION: CT CHEST WITHOUT CONTRAST CLINICAL INFORMATION: Solitary pulmonary nodule. COMPARISON: CT chest 03/02/2022. TECHNIQUE: Multidetector volumetric CT imaging of the chest was done. Axial MIP volume rendering provided. Sagittal and coronal reformatted images were obtained. This CT examination was performed using dose optimization techniques as appropriate, variously including the following: *Automated exposure control *Adjustment of mA and/or kV according to patient size (this includes techniques or standardized protocols for targeted exams where dose is matched to indication/reason for exam; i.e. extremities or head) *Use of iterative reconstruction technique DLP: 118 mGy-cm. FINDINGS: BRIDGE/STRUCTURE INSPECTION TEAM LEADER: Hyperinflated lungs. LUNGS: There is diffuse centrilobular emphysema without any acute pneumonic process. There is patchy ground-glass attenuation in the right upper lobe adjacent to the mediastinum on axial image 67/6 and multiple adherent cystic lucencies right lower lobe axial image 97/6. There is Peribronchial thickening and parenchymal opacity left upper lobe axial image 91/6. There is an adjacent 1.2 x 0.7 cm nodule; previously measured 7 x 10 mm. Patchy atelectatic changes are seen in the right middle lobe medial segment axial image 121/6, a 0.8 x 0.4 cm nodule right lower lobe medial segment axial image 128/6 which previously measured 6 x 8 mm and a pleural-based 6 mm nodule left lower lobe axial image 136/6. There is a ill-defined 1.1 cm opacity along the anterior right minor fissure. MEDIASTINUM: The thyroid lobes are small but symmetrical. The central trachea and the bronchi are widely patent. Heart size and the great vessels are normal caliber. There is mild coronary artery calcifications. No pericardial effusion seen. No abnormal-sized mediastinal or hilar lymph nodes seen. CORONARY ARTERY CALCIFICATION: There is mild coronary artery calcification. PLEURA: There is no pleural effusion or thickening. AXILLA: No lymphadenopathy. UPPER ABDOMEN: Visualized liver, spleen, pancreas and bilateral adrenal glands are unremarkable. OSSEOUS STRUCTURES: No lytic or sclerotic process seen. However, there is exaggerated thoracic kyphosis and degenerative disc changes with ventral spondylosis of lower dorsal spine. CT/CT chest wo IV con IMPRESSION: Severe emphysema with right lower lobe and lingular nodules are stable. Patchy ground-glass attenuation right upper lobe and cystic lucencies right lower lobe superior segment are stable. No acute consolidation. No abnormal mediastinal adenopathy seen. Fleischner guidelines were followed.
== END 2022-07-28 09:39 | disposition home or self-care (01) ==
LOC: HO.CT 09:38
PROVIDERS: PCP Family Medicine; Visit Provider Internal Medicine
DX: R91.1 Solitary pulmonary nodule (principal); J44.9 Chronic obstructive pulmonary disease, unspecified
CPT/HCPCS: 71250

== ENCOUNTER → 2022-08-11 11:19 | Outpatient (BNVA) | payer OTHER, SELFPAY | PROVIDERS: PCP Family Medicine; Visit Provider Internal Medicine | DX: J44.9 Chronic obstructive pulmonary disease, unspecified (principal); J96.91 Respiratory failure, unspecified with hypoxia; R91.1 Solitary pulmonary nodule | CPT/HCPCS: 99212 ==

== ENCOUNTER 2022-11-25 12:38 | Outpatient (REF) | payer OTHER, SELFPAY ==
--- NOTE | ~2022-11-25 | MM_ITS ---
EXAMINATION: MM SCREENING DIGITAL BREAST TOMOSYNTHESIS, BILATERAL CLINICAL INFORMATION: Screening. Asymptomatic. The lifetime risk of breast cancer based on the Tyrer-Cuzick Model is 4%. COMPARISON: Mammography: 09/01/2021, 06/12/2020, 10/02/2018, 08/09/2018 TECHNIQUE: Digital breast tomosynthesis is performed in both the craniocaudal and mediolateral oblique views along with computer-aided detection (CAD). Synthesized 2D images are generated from the tomosynthesis. Left CC view is provided. FINDINGS: There are scattered areas of fibroglandular density (ACR BI-RADS breast composition Category b). There are no significant masses, abnormal calcifications, or other abnormalities. Parenchymal pattern is similar to prior studies. There is no developing density or architectural abnormality. The axilla and skin contours are unremarkable. No significant changes. MM/MM tomosynthesis screening BI IMPRESSION: No mammographic evidence of malignancy. ASSESSMENT: BI-RADS 1: Negative RECOMMENDATION: Routine annual mammography screening. This patient's information was entered into a reminder system with a target due date for their next mammogram.
== END 2022-11-25 12:39 | disposition home or self-care (01) ==
LOC: HO.MAMMO 12:38
PROVIDERS: PCP Family Medicine; Visit Provider Family Medicine
DX: Z12.31 Encounter for screening mammogram for malignant neoplasm of breast (principal)
CPT/HCPCS: 77063; 77067

== ENCOUNTER 2022-12-08 11:37 | Outpatient (REF) | payer OTHER, SELFPAY ==
[2022-12-08 14:07] LABS: Alanine Aminotransferase 13 U/L (0-31); Albumin Level 4.2 g/dL (3.5-5.0); Alkaline Phosphatase 94 U/L (39-117); Anion Gap 14 (12-20); Aspartate Amino Transferase 15 U/L (5-31); Bilirubin Total 0.4 mg/dL (0.0-1.0); Blood Urea Nitrogen 6 mg/dL (9-16); Calcium 9.5 mg/dL (8.4-10.2); Carbon Dioxide 31 mmol/L (22-29); Chloride 101 mmol/L (96-108); Estimated Glomerular Filt Rate > 60; Glucose Random 103 mg/dL (60-115); Potassium 4.5 mmol/L (3.3-5.1); Sodium 141 mmol/L (135-145); Total Protein 7.4 g/dL (6.5-8.0)
[2022-12-08 14:20] LABS: Free T4 (Free Thyroxine) 1.32 ng/dL (0.71-1.85)
== END 2022-12-08 11:38 | disposition home or self-care (01) ==
LOC: HO.10HDL 11:37
PROVIDERS: Visit Provider Family Medicine
DX: Z13.89 Encounter for screening for other disorder (principal)
CPT/HCPCS: 36415; 80053; 82550; 84439

== ENCOUNTER → 2022-12-14 11:15 | Outpatient (BNVA) | payer OTHER, SELFPAY | PROVIDERS: PCP Family Medicine; Visit Provider Internal Medicine | DX: J43.9 Emphysema, unspecified (principal); J96.91 Respiratory failure, unspecified with hypoxia; R91.1 Solitary pulmonary nodule; Z79.899 Other long term (current) drug therapy; Z99.81 Dependence on supplemental oxygen | CPT/HCPCS: 99212 ==

== ENCOUNTER → 2023-01-31 12:51 | Outpatient (BNVA) | payer OTHER, SELFPAY | PROVIDERS: PCP Family Medicine; Referring Provider Family Medicine; Visit Provider Nurse Practitioner Family | DX: I42.2 Other hypertrophic cardiomyopathy (principal); J44.9 Chronic obstructive pulmonary disease, unspecified; Z99.81 Dependence on supplemental oxygen; Z98.890 Other specified postprocedural states | CPT/HCPCS: 93005; 99212 ==

== ENCOUNTER 2023-03-23 11:59 | Inpatient (IN) | payer OTHER, SELFPAY ==
[2023-03-23] VITALS (8 sets, daily range): BP systolic 104–142; BP diastolic 42–81; PULSE 78–108; RESP 18–24; TEMP 36.5–37.4; O2SAT 92–100; BMI 25.4
--- NOTE | ~2023-03-23 | US_ITS ---
EXAMINATION: US ABDOMEN LIMITED CLINICAL INFORMATION: Nausea and vomiting. COMPARISON: None available. TECHNIQUE: Real-time imaging of the right upper quadrant abdominal viscera. FINDINGS: PANCREAS: Not well-visualized LIVER: Normal. The liver is normal in size. The liver contour is normal. Parenchymal echogenicity is normal. No focal hepatic lesion. There is no intrahepatic biliary duct dilatation seen. GALLBLADDER: Normal. The gallbladder is physiologically distended without evidence of stones, sludge, polyps, wall thickening or pericholecystic fluid. COMMON BILE DUCT: Normal in caliber measuring 0.7 cm in diameter. RIGHT KIDNEY: Normal. No hydronephrosis. No renal calculi or focal parenchymal lesions. The kidney measures 9.5 cm in maximum dimension. FREE FLUID: None. US/US abdomen limited IMPRESSION: Limited visualization of the pancreas otherwise unremarkable exam.
--- NOTE | ~2023-03-23 | FL_ITS ---
EXAMINATION: XR LUMBAR PUNCTURE CLINICAL INFORMATION: Encephalopathy. COMPARISON: MRI brain without contrast. TECHNIQUE: Following explaining fluoroscopy-guided lumbar puncture procedure, benefits, risks a written consent was obtained from patient's and patient's proxy, her daughter. Patient was placed in the left lateral decubitus view and low back sprain area was cleaned and draped in usual sterile manner with 2% chlorhexidine solution. 1% lidocaine was injected at the puncture site. Under fluoroscopy guidance a 22-gauge spinal needle was advanced intrathecally at the L3-L4 disc level with a right paraspinal approach. Stylet was removed and after observing CSF return opening CSF pressure was obtained. Fluid was then collected in 4 test tubes. Subsequently stylet was reintroduced and needle withdrawn after obtaining as much fluid as possible. Complete hemostasis achieved at puncture site. Sterile Band-Aid applied postprocedure. Patient tolerated procedure extremely well. Conscious sedation was utilized by anesthesia department. FINDINGS: 1. On lateral fluoroscopy the lumbar vertebral heights and alignment was normal. 2. The opening CSF pressure was high and measured 15 cm of water. 3. Approximately 5 mL of clear CSF fluid was collected in 4 test tubes and sent to lab. FLUOROSCOPY TIME: 0.2 minutes. DOSE AREA PRODUCT: 0.0706 uGy-m2 (microgray-meter squared). FL/FL guided lumbar puncture LP IMPRESSION: Successful fluoroscopic-guided lumbar puncture performed. High CSF pressure was noted measuring 15 cm of water.
--- NOTE | ~2023-03-23 | CT_ITS ---
EXAMINATION: CT CHEST WITH IV CONTRAST CT ABDOMEN AND PELVIS WITH IV CONTRAST CLINICAL INFORMATION: Encephalopathy. Paraneoplastic syndrome. COMPARISON: Chest CT from 03/23/2023. Abdomen and pelvis CT from 10/02/2021. Limited abdomen ultrasound of 03/24/2023. TECHNIQUE: Multidetector CT imaging examination of the chest, abdomen and pelvis was performed with intravenous administration of 85 mL Omnipaque 350. Axial images are displayed at 0.6 mm and 5 mm slice thickness. Oral contrast not given. Coronal and sagittal reformatted images were generated at the technologist's workstation and submitted for review. This CT examination was performed using dose optimization techniques as appropriate, variously including the following: *Automated exposure control *Adjustment of mA and/or kV according to patient size (this includes techniques or standardized protocols for targeted exams where dose is matched to indication/reason for exam; i.e. extremities or head) *Use of iterative reconstruction technique DLP: 816 mGy-cm FINDINGS: CHEST - LUNGS AND PLEURA: Severe pulmonary emphysema. Bronchial ch are diffusely, mildly thickened. A small focal linear opacity in the medial right lower lobe is stable compared to 03/02/2022 (image 360, series 7). A focal opacity of the posteromedial right upper lobe has developed a more nodular appearance than its linear appearance on 03/02/2022 and 07/28/2022; it has average diameter of 0.8 cm and due to interval increased prominence, follow-up evaluation is recommended (image 175, series 7). No pulmonary mass or pleural effusion. MEDIASTINUM: The heart size is normal. No pericardial effusion. Pulmonary arteries are normal in caliber. Thoracic aorta atherosclerosis without aneurysm or dissection. Mild atherosclerotic calcification of coronary arteries. The esophagus is unremarkable. No mediastinal mass. LYMPHATICS: No pathologic sized axillary, hilar or mediastinal lymph nodes. A stable mediastinal lymph node adjacent to the aortic arch is 0.8 cm in short axis dimension. CHEST WALL/BONES OF THORAX: No chest wall mass. Bones are diffusely osteopenic. Mild hyperkyphosis of the degenerated thoracic spine. No acute or suspicious osseous abnormality. ABDOMEN AND PELVIS - HEPATOBILIARY: Liver has normal size and contour. There is focal steatosis adjacent to the falciform ligament. No liver mass. Gallbladder is unremarkable. No dilated bile ducts. PANCREAS: No edema, mass or pancreatic ductal dilatation. SPLEEN: Normal. ADRENAL GLANDS: Normal. KIDNEYS AND URETERS: Kidneys are normal in size and enhance symmetrically. No renal mass or hydronephrosis. 0.2 cm calyceal stone of the mid right kidney. No large calculi. The ureters are unremarkable. BOWEL AND PERITONEUM: No dilated loops of bowel. The appendix is normal. Pancolonic diverticulosis. No overt bowel wall thickening. No mesenteric fat stranding, ascites or pneumoperitoneum. ABDOMINAL WALL: Unremarkable. VESSELS: Atherosclerosis of abdominal aorta without aneurysm. Inferior vena cava is underdistended. This suggests possible hypovolemia. LYMPH NODES: No pathologic sized lymph nodes in the abdomen or pelvis. No inguinal lymphadenopathy. BLADDER AND PELVIC VISCERA: Urinary bladder is decompressed by Lock catheter. No uterine or adnexal mass. No pelvic free fluid. OTHER MUSCULOSKELETAL: No suspicious bone lesions. No soft tissue mass. CT/CT abdomen pelvis w IV con IMPRESSION: * Severe pulmonary emphysema. * A focal opacity of the posteromedial right upper lobe is probably benign but has developed a more nodular appearance when compared to 03/02/2022 and 07/28/2022. Based on Fleischner Society guidelines, recommend chest CT follow-up in the next 6-12 months. * Pancolonic diverticulosis without diverticulitis. * No evidence of any metastatic disease process in the chest, abdomen or pelvis.
--- NOTE | ~2023-03-23 | MR_ITS ---
MRI OF THE BRAIN WITH CONTRAST INDICATION: Encephalopathy. Persistent twitching. TECHNIQUE: Axial and coronal T1 weighted imaging of the brain acquired following intravenous administration of 6 mL of Gadavist. COMPARISON: MRI from 03/26/2023. FINDINGS: Limited study with motion artifacts. There is no abnormal parenchymal or leptomeningeal enhancement. The orbits appear normal. No mass effect or midline shift is seen. The ventricles are normal in size. MR/MR head/brain w con IMPRESSION: No abnormal parenchymal or leptomeningeal enhancement. Limited study with motion artifacts.
--- NOTE | ~2023-03-23 | CT_ITS ---
EXAMINATION: CT HEAD WITHOUT CONTRAST CLINICAL INFORMATION: Dizziness COMPARISON: CT head 10/02/2021 TECHNIQUE: Contiguous axial imaging was performed from the skull base to vertex without intravenous administration of contrast. Coronal and sagittal reformatted images are performed at the CT scanner. [This CT examination was performed using dose optimization techniques as appropriate, variously including the following: *Automated exposure control *Adjustment of mA and/or kV according to patient size (this includes techniques or standardized protocols for targeted exams where dose is matched to indication/reason for exam; i.e. extremities or head) *Use of iterative reconstruction technique] DLP: 646 mGy-cm. FINDINGS: There is no evidence of acute intracranial hemorrhage or territorial infarction. No abnormal mass-effect or midline shift is seen. Delatorre to white matter differentiation is well preserved. No extra-axial fluid collections are identified. The ventricles are normal in size. There is no abnormal attenuation within the brain parenchyma. There is no osseous abnormality. Sinus mucosal thickening in the bilateral ethmoid and inferior left sphenoid sinuses. CT/CT head/brain wo IV con IMPRESSION: No acute intracranial pathology.
--- NOTE | ~2023-03-23 | XR_ITS ---
EXAMINATION: XR CHEST CLINICAL INFORMATION: Hypoxia COMPARISON: Previous study dated 09/30/[address] dated 07/21/2022 TECHNIQUE: Frontal view of the chest was obtained. FINDINGS: There is no obvious failure here. Some increasing left basilar markings may represent an area of atelectasis or infiltrate. Mildly increasing right basilar opacities could represent a small area of atelectasis or infiltrate. Subtle opacity in the right midlung is also noted. The cardiac silhouette is comparable. Patient is rotated therefore difficult to assess the hilar regions. No effusion. XR/XR chest 1V IMPRESSION: Findings suggest bilateral basilar infiltrates left greater than right and possible right midlung subtle infiltrate. Follow-up recommended. No failure or effusion
--- NOTE | ~2023-03-23 | CT_ITS ---
EXAMINATION: CT CHEST WITHOUT CONTRAST CLINICAL INFORMATION: Cough, shortness of breath COMPARISON: CT chest 07/28/2022 TECHNIQUE: Multidetector volumetric CT imaging of the chest was done. Axial MIP volume rendering provided. Sagittal and coronal reformatted images were obtained. This CT examination was performed using dose optimization techniques as appropriate, variously including the following: *Automated exposure control *Adjustment of mA and/or kV according to patient size (this includes techniques or standardized protocols for targeted exams where dose is matched to indication/reason for exam; i.e. extremities or head) *Use of iterative reconstruction technique DLP: 257 mGy-cm FINDINGS: LUNGS: Marked gibson emphysematous change of lungs. No acute airways disease. There is chronic bronchial wall thickening and left perihilar density extending into the anterior left upper lobe. This is worse since prior study of 07/28/2022. This is the segment of lung containing a irregular nodule measuring 1 cm on the CAT scan of 07/28/2022. A distinct nodule is not seen on current study due to confluent opacity in the superior now present. Left hilum is prominent. The hilar structures are difficult to assess without IV contrast. Left hilum remains similar in appearance to the CAT scan of 07/28/2022. MEDIASTINUM: No mediastinal mass or significant lymphadenopathy. Heart size is normal. No pericardial effusion. Vascular calcifications of aorta without aneurysm. Moderate-sized hiatal hernia. CORONARY ARTERY CALCIFICATION: Mild volume of coronary calcifications. PLEURA: There is no pleural effusion. No pleural mass or thickening. AXILLA: No lymphadenopathy. UPPER ABDOMEN: Unremarkable. OSSEOUS STRUCTURES: Multilevel degenerative spondylosis spine. No suspicious osseous lesions. CT/CT chest wo IV con IMPRESSION: 1. Marked gibson emphysematous change of lungs. 2. Chronic bronchial wall thickening and left perihilar density extending into the left upper lobe. This is worse since prior CAT scan of 07/28/2022. Left hilum is prominent but unchanged in appearance since the CAT scan of 07/28/2022. Difficult to assess left eduard without IV contrast. Fleischner guidelines were followed.
--- NOTE | ~2023-03-23 | MR_ITS ---
EXAMINATION: MR BRAIN WITHOUT CONTRAST CLINICAL INFORMATION: Stroke. Dizziness. COMPARISON: CT head from 03/23/2023. TECHNIQUE: MRI of the brain was obtained using routine sequences without contrast. FINDINGS: No focal restricted diffusion is demonstrated to suggest acute or subacute cerebral ischemia. No evidence of acute or chronic hemorrhagic products on heme-sensitive imaging. Small chronic lacunar infarct of the left cerebral hemisphere. Scattered periventricular and deep white matter T2 FLAIR hyperintensities consistent with mild underlying microangiopathy. The ventricles are normal in morphology and size. No abnormal mass effect. No midline shift. Normal appearance of the pituitary gland. Normal positioning of the cerebellar tonsils. Normal arterial and venous vascular flow voids are present. Normal, homogeneous marrow signal. Mild mucosal thickening of the paranasal sinuses. No signal abnormalities within the mastoids. MR/MR head/brain wo con IMPRESSION: 1. No acute intracranial abnormalities. 2. Mild underlying microangiopathy. Small chronic lacunar infarct of the left cerebellar hemisphere.
--- NOTE | 2023-03-23 12:15 | PC.NURSE ---
pt reports near syncope but not loc when standing. associated nausea, no vomiting. pt on 2L O2 at baseline at home. Currently on 2L in ED sat 97%. lung sounds diminished
--- NOTE | 2023-03-23 12:28 | PC.NURSE ---
pt denies current nausea. pt has fallen at home several times due to dizziness. last week pt had vomiting spells.
[2023-03-23 12:37] LABS: Glucose, Whole Blood 151 mg/dL (60-115)
--- NOTE | 2023-03-23 12:44 | ECG_ITS ---
Test Reason : dizziness Blood Pressure : / mmHG Vent. Rate : 096 BPM Atrial Rate : 096 BPM P-R Int : 126 ms QRS Dur : 080 ms QT Int : 358 ms P-R-T Axes : 056 059 052 degrees QTc Int : 452 ms Normal sinus rhythm Normal ECG When compared with ECG of 02-OCT-2021 18:44, No significant change was found Referred By: Zuri Zhao Electronically Signed By:ALO MOTA
--- NOTE | 2023-03-23 12:44 | ED_ITS ---
HPI - Dizziness General Chief Complaint: Dizziness Stated Complaint: DIZZY WHEN STANDS UP X'S 5 DAYS Time Seen by Provider: 03/23/23 12:43 Source: patient, EMS and old records reviewed Mode of arrival: EMS Limitations: no limitations History of Present Illness HPI Narrative: 63-year-old female with a history of chronic hypoxic respiratory failure on 3 L nasal cannula, advanced COPD, hypertrophic cardiomyopathy, pulmonary nodule, former smoker, who presents to the ER from home via EMS for evaluation of worsening lightheaded and dizziness for the last 4-5 days. She reports it is associated with nausea and decreased appetite. Her family reports she was vomiting phlegm when her symptoms started 4 days ago. She reports chronic difficulty breathing but no acute worsening of her respiratory status. No chest pain. No fever or chills. No weakness, numbness, tingling. MD elicited complaint: dizziness and lightheadedness Onset (ago): day(s) (4) Timing: gradual onset and constant Severity: moderate Description: lightheadedness and near-syncope Context: recent illness Exacerbating factors: movement/ambulation, change in body position and standing Relieving factors: remaining still Associated symptoms: nausea, malaise and weakness Related Data Home Medications Medication Instructions Recorded Confirmed levothyroxine 100 mcg tablet 100 mcg PO DAILY 09/21/20 01/31/23 sertraline 50 mg tablet 50 mg PO DAILY 09/21/20 01/31/23 simvastatin 40 mg tablet 40 mg PO BEDTIME 09/21/20 01/31/23 albuterol sulfate 2.5 mg/3 mL 2.5 mg inhalation Q6H PRN 11/10/21 01/31/23 (0.083 %) solution for nebulization pantoprazole 40 mg tablet,delayed 40 mg PO DAILY 03/30/22 01/31/23 release Previous Rx's Medication Instructions Recorded Incruse Ellipta 62.5 mcg/actuation 1 inh inhalation DAILY 30 days #30 01/16/23 powder for inhalation ea (umeclidinium) Breo Ellipta 200 mcg-25 mcg/dose 1 ea inhalation DAILY #60 ea 02/08/23 powder for inhalation (fluticasone furoate-vilanterol) Ventolin HFA 90 mcg/actuation 2 puff inhalation QID PRN for 03/07/23 aerosol inhaler (albuterol sulfate) wheezing #18 ea Allergies Allergy/AdvReac Type Severity Reaction Status Date / Time carvedilol Allergy Unknown chest Verified 01/31/23 13:14 tighness,sob,difficulty breathing lorazepam [Ativan] Allergy Unknown affects Verified 01/31/23 13:14 psychy Review of Systems Review of Systems: Yes all other systems are reviewed and are negative [facility] Past Medical History Medical History Pulmonary nodule Respiratory failure with hypoxia Surgical History History of cardiac cath History of skin graft Hx of eye surgery Family History Family History Father HTN (hypertension) Diabetes CVD (cardiovascular disease) Mother Diabetes HTN (hypertension) Social History Social History Alcohol intake: never Patient Tobacco Use Status: Former Tobacco user Quit Date: 2014 Years Smoked: 35+ Smoked in Last 30 Days: No Use of substances other than those prescribed or required for medical reasons: No Advance Directives: Yes Advance Directives Information Provided: No Advance Directives on File: No Physical Exam Vital Signs: Vital Signs: Last Vital Signs Temp 97.7 F 03/23/23 20:24 Pulse 87 03/23/23 20:24 Resp 24 H 03/23/23 20:24 BP 104/56 L 03/23/23 20:24 Pulse Ox 96 03/23/23 20:24 O2 Del Method Nasal Cannula 03/23/23 20:24 O2 Flow Rate 2 03/23/23 20:24 Oxygen Flow Rate 2 03/23/23 12:10 BMI result Body Mass Index 25.4 Appearance: Alert. Oriented X3. No acute distress. Head: normocephalic, atraumatic. Eyes: Pupils equal, round and reactive to light. EOMI, no nystagmus ENT: Pharynx normal. No tonsillar swelling or exudate. Neck: Normal inspection. Neck supple. CVS: Normal heart rate and rhythm. Pulses normal. Respiratory: Mild respiratory distress RR low 20s. Breath sounds diminished throughout with scattered expiratory wheezes in the bases Abdomen: Soft and nontender. +BS x4 Skin: Skin warm and dry. Normal skin color. Normal skin turgor. No rashes. Extremities: No lower extremity edema. No joint swelling. Neuro/psych: Oriented X 3. No motor deficit. No sensory deficit. CN II-XII intact. Normal speech and cognition. Normal drupid-da-gciu, normal llwr-[id number] bilaterally. Course Reevaluation(s) Reevaluation #1: Orthostatic vital signs are negative. Patient feels fine at rest and when she stands up she feels lightheaded. She is tolerating p.o.. Attempts at IV of an established but unsuccessful. Will continue to push oral fluids and reassess. She is declining need for physical therapy or short-term rehab in feel safe being discharged home when appropriate. Time: 16:21 Reevaluation #2: I went to go evaluate patient she tells me that she is still extremely dizzy describes the dizziness as room spinning. Neuro nonfocal. Will obtain CT of the head at this time is patient's symptoms are on resolving and worsening. Patient tells me she is unable to stand up secondary to dizziness. No visual disturbances. Time: 18:21 Reevaluation #3: Family no at the bedside tell me patient has been confused, thinking a Subaru is a water bottle, patient noted to have leukocytosis, urine has trace bacteria and leukocyte esterases will treat for UTI as there is altered mental status, leukocytosis, x-ray also concerning for bilateral basilar infiltrates left greater than right. And a right possible mid lung subtle infiltrate. At this time infection suspected ceftriaxone ordered. Initially I was not able to get a good history from patient as she was confused however now family at the bedside and able to provide me a better history. Time: 20:46 Medications Administered Generic Name Dose Route Start Last Admin Trade Name Freq PRN Reason Stop Dose Admin Sodium Chloride 1,000 mls @ 999 mls/hr 03/23/23 20:45 03/23/23 21:10 Ns IV 03/23/23 21:45 999 mls/hr .Q1H1M KATLIN Administration Discontinued Medications Generic Name Dose Route Start Last Admin Trade Name Freq PRN Reason Stop Dose Admin Albuterol/Ipratropium 3 ml 03/23/23 13:51 03/23/23 14:35 Albuterol/Iprat 2.5/0.5mg 3 Ml Ampul.Neb INHALE 05/25/23 13:52 3 ml ONCE ONE Administration Sodium Chloride 1,000 mls @ 999 mls/hr 03/23/23 15:45 03/23/23 18:30 Ns IVCONT 03/23/23 16:45 Infused .Q1H1M KATLIN Infusion Ceftriaxone Sodium 1 gm/ 50 mls @ 100 mls/hr 03/23/23 20:44 03/23/23 21:10 Sodium Chloride IV 03/23/23 21:13 100 mls/hr ONCE ONE Administration Medical Decision Making Medical Decision Making [facility] Narrative: 63-year-old female with a history of chronic hypoxic respiratory failure on 3 L nasal cannula, advanced COPD, hypertrophic cardiomyopathy, pulmonary nodule, former smoker, who presents to the ER from home via EMS for evaluation of worsening lightheaded and dizziness for the last 4-5 days. Patient is hemodynamically stable. Orthostatic vital signs negative. EKG unremarkable. Negative troponin. Neurologic exam is intact. Dizziness described as lightheaded and is only with standing and position changes. Does not seem consistent with vertigo. Differential Diagnosis Differential Diagnoses: The differential diagnosis associated with the presentation includes Dehydration, anemia, vertigo, metabolic derangement, UTI, COPD exacerbation, less likely posterior stroke Admission/Observation Consideration of admission/observation: Escalation of care including admissio n/observation considered Lab Data [facility] Lab Attestation statement: I reviewed the patient's lab results. Leukocytosis, mild hyponatremia, 03/23/23 14:14 03/23/23 14:14 Labs: Lab Results 03/23/23 03/23/23 03/23/23 Range/Units 12:32 14:14 14:14 WBC 14.1 H (4.8-10.8) X10*3/uL RBC 4.40 (4.20-5.50) X10*6/uL Hgb 13.4 (12.0-16.0) g/dl Hct 39.4 (37.0-47.0) % MCV 89.5 (80.0-98.0) fL MCH 30.5 (27.0-33.0) pg MCHC 34.0 (31.0-35.0) g/dl RDW 11.8 (11.0-16.0) % Plt Count 314 (160-400) X10*3/uL MPV 9.9 (9.4-12.3) fL Immature Gran % (Auto) 0.5 H (0.0-0.4) % Neut % (Auto) 83.6 H (45-73) % Lymph % (Auto) 7.5 L (20-40) % [place] % (Auto) 7.3 (2-11) % Eos % (Auto) 0.6 (0-4) % Baso % (Auto) 0.5 (0-2) % Lymph # (Auto) 1.1 L (1.2-4.9) X10*3/uL [place] # (Auto) 1.0 (0.1-1.2) X10*3/uL Eos # (Auto) 0.1 (0.0-0.4) X10*3/uL Baso # (Auto) 0.1 (0.0-0.2) X10*3/uL Abs Immat Gran (auto) 0.07 H (0.00-0.03) X10*3/uL Absolute Neuts (auto) 11.8 H (2.0-8.3) x10*3/uL Absolute Nucleated RBC 0.000 (0.0-0.012) X10*3/uL Nucleated RBC % (auto) 0.0 (0.0-0.2) /100WBC Smear Tech's Comments VERIFIED Sodium 131 L (135-145) mmol/L Potassium 4.3 (3.3-5.1) mmol/L Chloride 91 L (96-108) mmol/L Carbon Dioxide 31 H (22-29) mmol/L Anion Gap 13 (12-20) BUN 11 (9-16) mg/dL Creatinine 0.57 (0.5-1.4) mg/dL Estim Creat Clear Calc 81.1 Estimated GFR > 60 POC Glucose 151 H (60-115) mg/dL Random Glucose 99 (60-115) mg/dL Lactic Acid (0.5-2.0) mmol/L Calcium 9.0 (8.4-10.2) mg/dL Magnesium 2.5 (1.6-2.6) mg/dL Total Bilirubin 0.6 (0.0-1.0) mg/dL Direct Bilirubin 0.2 (0.0-0.5) mg/dL AST 19 (5-31) U/L ALT 20 (0-31) U/L Alkaline Phosphatase 75 (39-117) U/L Troponin I High Sens (<3.5-17.0) ng/L B-Natriuretic Peptide (<100) pg/mL Total Protein 7.1 (6.5-8.0) g/dL Albumin 3.8 (3.5-5.0) g/dL TSH (0.32-4.0) uIU/mL Free T4 (0.71-1.85) ng/dL Urine Color Urine Appearance Urine pH (5.0-9.0) Ur Specific [place] (1.005-1.025) Urine Protein (Neg-Trace) mg/dL Urine Glucose (UA) (Negative) mg/dL Urine Ketones (Negative) mg/dL Urine Blood (Negative) Urine Nitrite (Negative) Ur Leukocyte Esterase (Negative) Urine RBC (0-2) /HPF Urine WBC (0-5) /HPF Ur Squamous Epith Cells (0-2) /HPF Urine Bacteria (None Seen) Hyaline Casts (0-2) /LPF Urine Opiates Screen (Not Detect) Urine Fentanyl Screen (Not Detect) Ur Barbiturates Screen (Not Detect) Ur Phencyclidine Scrn (Not Detect) Ur Amphetamines Screen (Not Detect) U Benzodiazepines Scrn (Not Detect) Urine Cocaine Screen (Not Detect) U Marijuana (THC) Screen (Not Detect) Ethyl Alcohol < 10 mg/dL 03/23/23 03/23/23 03/23/23 Range/Units 14:33 14:33 14:33 WBC (4.8-10.8) X10*3/uL RBC (4.20-5.50) X10*6/uL Hgb (12.0-16.0) g/dl Hct (37.0-47.0) % MCV (80.0-98.0) fL MCH (27.0-33.0) pg MCHC (31.0-35.0) g/dl RDW (11.0-16.0) % Plt Count (160-400) X10*3/uL MPV (9.4-12.3) fL Immature Gran % (Auto) (0.0-0.4) % Neut % (Auto) (45-73) % Lymph % (Auto) (20-40) % [place] % (Auto) (2-11) % Eos % (Auto) (0-4) % Baso % (Auto) (0-2) % Lymph # (Auto) (1.2-4.9) X10*3/uL [place] # (Auto) (0.1-1.2) X10*3/uL Eos # (Auto) (0.0-0.4) X10*3/uL Baso # (Auto) (0.0-0.2) X10*3/uL Abs Immat Gran (auto) (0.00-0.03) X10*3/uL Absolute Neuts (auto) (2.0-8.3) x10*3/uL Absolute Nucleated RBC (0.0-0.012) X10*3/uL Nucleated RBC % (auto) (0.0-0.2) /100WBC Smear Tech's Comments Sodium (135-145) mmol/L Potassium (3.3-5.1) mmol/L Chloride (96-108) mmol/L Carbon Dioxide (22-29) mmol/L Anion Gap (12-20) BUN (9-16) mg/dL Creatinine (0.5-1.4) mg/dL Estim Creat Clear Calc Estimated GFR POC Glucose (60-115) mg/dL Random Glucose (60-115) mg/dL Lactic Acid 0.6 (0.5-2.0) mmol/L Calcium (8.4-10.2) mg/dL Magnesium (1.6-2.6) mg/dL Total Bilirubin (0.0-1.0) mg/dL Direct Bilirubin (0.0-0.5) mg/dL AST (5-31) U/L ALT (0-31) U/L Alkaline Phosphatase (39-117) U/L Troponin I High Sens 3.6 (<3.5-17.0) ng/L B-Natriuretic Peptide 24 (<100) pg/mL Total Protein (6.5-8.0) g/dL Albumin (3.5-5.0) g/dL TSH (0.32-4.0) uIU/mL Free T4 (0.71-1.85) ng/dL Urine Color Urine Appearance Urine pH (5.0-9.0) Ur Specific [place] (1.005-1.025) Urine Protein (Neg-Trace) mg/dL Urine Glucose (UA) (Negative) mg/dL Urine Ketones (Negative) mg/dL Urine Blood (Negative) Urine Nitrite (Negative) Ur Leukocyte Esterase (Negative) Urine RBC (0-2) /HPF Urine WBC (0-5) /HPF Ur Squamous Epith Cells (0-2) /HPF Urine Bacteria (None Seen) Hyaline Casts (0-2) /LPF Urine Opiates Screen (Not Detect) Urine Fentanyl Screen (Not Detect) Ur Barbiturates Screen (Not Detect) Ur Phencyclidine Scrn (Not Detect) Ur Amphetamines Screen (Not Detect) U Benzodiazepines Scrn (Not Detect) Urine Cocaine Screen (Not Detect) U Marijuana (THC) Screen (Not Detect) Ethyl Alcohol mg/dL 03/23/23 03/23/23 03/23/23 Range/Units 14:33 16:07 16:07 WBC (4.8-10.8) X10*3/uL RBC (4.20-5.50) X10*6/uL Hgb (12.0-16.0) g/dl Hct (37.0-47.0) % MCV (80.0-98.0) fL MCH (27.0-33.0) pg MCHC (31.0-35.0) g/dl RDW (11.0-16.0) % Plt Count (160-400) X10*3/uL MPV (9.4-12.3) fL Immature Gran % (Auto) (0.0-0.4) % Neut % (Auto) (45-73) % Lymph % (Auto) (20-40) % [place] % (Auto) (2-11) % Eos % (Auto) (0-4) % Baso % (Auto) (0-2) % Lymph # (Auto) (1.2-4.9) X10*3/uL [place] # (Auto) (0.1-1.2) X10*3/uL Eos # (Auto) (0.0-0.4) X10*3/uL Baso # (Auto) (0.0-0.2) X10*3/uL Abs Immat Gran (auto) (0.00-0.03) X10*3/uL Absolute Neuts (auto) (2.0-8.3) x10*3/uL Absolute Nucleated RBC (0.0-0.012) X10*3/uL Nucleated RBC % (auto) (0.0-0.2) /100WBC Smear Tech's Comments Sodium (135-145) mmol/L Potassium (3.3-5.1) mmol/L Chloride (96-108) mmol/L Carbon Dioxide (22-29) mmol/L Anion Gap (12-20) BUN (9-16) mg/dL Creatinine (0.5-1.4) mg/dL Estim Creat Clear Calc Estimated GFR POC Glucose (60-115) mg/dL Random Glucose (60-115) mg/dL Lactic Acid (0.5-2.0) mmol/L Calcium (8.4-10.2) mg/dL Magnesium (1.6-2.6) mg/dL Total Bilirubin (0.0-1.0) mg/dL Direct Bilirubin (0.0-0.5) mg/dL AST (5-31) U/L ALT (0-31) U/L Alkaline Phosphatase (39-117) U/L Troponin I High Sens (<3.5-17.0) ng/L B-Natriuretic Peptide (<100) pg/mL Total Protein (6.5-8.0) g/dL Albumin (3.5-5.0) g/dL TSH 0.21 L (0.32-4.0) uIU/mL Free T4 1.79 (0.71-1.85) ng/dL Urine Color Dark Yellow Urine Appearance Clear Urine pH 6.5 (5.0-9.0) Ur Specific [place] >= 1.030 H (1.005-1.025) Urine Protein 30 (1+) H (Neg-Trace) mg/dL Urine Glucose (UA) Negative (Negative) mg/dL Urine Ketones 15 (Negative) mg/dL Urine Blood Moderate (2+) H (Negative) Urine Nitrite Negative (Negative) Ur Leukocyte Esterase Small (1+) H (Negative) Urine RBC 3-5 H (0-2) /HPF Urine WBC 6-10 H (0-5) /HPF Ur Squamous Epith Cells 3-5 (0-2) /HPF Urine Bacteria Trace (None Seen) Hyaline Casts 0-2 (0-2) /LPF Urine Opiates Screen Not Detected (Not Detect) Urine Fentanyl Screen Not Detected (Not Detect) Ur Barbiturates Screen Not Detected (Not Detect) Ur Phencyclidine Scrn Not Detected (Not Detect) Ur Amphetamines Screen Not Detected (Not Detect) U Benzodiazepines Scrn Not Detected (Not Detect) Urine Cocaine Screen Not Detected (Not Detect) U Marijuana (THC) Screen POSITIVE H (Not Detect) Ethyl Alcohol mg/dL Independent Interpretation I performed an independent interpretation of an: EKG and Plain X-Ray Interpretation: Chest x-ray with clear lungs, no infiltrate or effusion. EKG with normal sinus rhythm, ventricular rate 96 beats per minute, normal IN interval, normal QTC, no ST segment elevations depressions. No change from prior in 2020. Independent Historian Clinical information obtained from an independent historian. History obtained from or confirmed by: Spouse and EMS External Record Review External record reviewed: Office record, Outpatient record, Prior outpatient labs and Prior outpatient radiology Tests considered The following testing was considered but not selected: CT scan of the head considered, not performed given exam and clinical presentation. Prescription Management I considered prescription management with: Antibiotic Chronic Conditions Patient?s care impacted by: Other (COPD) Critical Care Time Critical Care Time Critical Care Time: No Discharge Plan Discharge Clinical Impression: Positional lightheadedness, Nausea, UTI (urinary tract infection), Pneumonia Patient Disposition: Admitted As Inpatient Prescriptions: No Action Incruse Ellipta 62.5 mcg/actuation blister with device 1 inh inhalation DAILY 30 Days Qty: 30 3RF Breo Ellipta 200-25 mcg/dose blister with device 1 ea inhalation DAILY Qty: 60 3RF albuterol sulfate [Ventolin HFA] 90 mcg/actuation HFA aerosol inhaler 2 puff inhalation QID PRN (Reason: for wheezing) Qty: 18 0RF albuterol sulfate 2.5 mg /3 mL (0.083 %) solution for nebulization 2.5 mg inhalation Q6H PRN simvastatin 40 mg tablet 40 mg PO BEDTIME levothyroxine 100 mcg tablet 100 mcg PO DAILY sertraline 50 mg tablet 50 mg PO DAILY pantoprazole 40 mg tablet,delayed release (DR/EC) 40 mg PO DAILY
[2023-03-23] MEDS: Albuterol/Iprat 2.5/0.5MG 3 ML AMPUL.NEB INHALE (14:35)
[2023-03-23 14:37] LABS: Hemoglobin 13.4 g/dl (12.0-16.0); PLT CLUMP 1; SCAN SMEAR FLAG 1
[2023-03-23 14:39] LABS: Basophils Absolute Auto 0.1 X10*3/uL (0.0-0.2); Basophils Percent Auto 0.5 % (0-2); Eosinophils Absolute Auto 0.1 X10*3/uL (0.0-0.4); Eosinophils Percent Auto 0.6 % (0-4); Hematocrit 39.4 % (37.0-47.0); Imm Gran Abs Auto 0.07 X10*3/uL (0.00-0.03); Imm Gran Pct Auto 0.5 % (0.0-0.4); Lymphocytes Absolute Auto 1.1 X10*3/uL (1.2-4.9); Lymphocytes Percent Auto 7.5 % (20-40); MANUAL DIFF FLAG SCAN; Mean Corpuscular Hemoglobin 30.5 pg (27.0-33.0); Mean Corpuscular Volume 89.5 fL (80.0-98.0); Mean Platelet Volume 9.9 fL (9.4-12.3); Monocytes Percent Auto 7.3 % (2-11); Neutrophils Absolute Auto 11.8 x10*3/uL (2.0-8.3); Neutrophils Percent Auto 83.6 % (45-73); Red Cell Distribution Width 11.8 % (11.0-16.0)
[2023-03-23 14:47] LABS: Alanine Aminotransferase 20 U/L (0-31); Albumin Level 3.8 g/dL (3.5-5.0); Alkaline Phosphatase 75 U/L (39-117); Anion Gap 13 (12-20); Aspartate Amino Transferase 19 U/L (5-31); Bilirubin Direct 0.2 mg/dL (0.0-0.5); Bilirubin Total 0.6 mg/dL (0.0-1.0); Blood Urea Nitrogen 11 mg/dL (9-16); Carbon Dioxide 31 mmol/L (22-29); Chloride 91 mmol/L (96-108); Creatinine Clr Calc Pharmacy 81.1; Estimated Glomerular Filt Rate > 60; Ethanol < 10 mg/dL; Glucose Random 99 mg/dL (60-115); Magnesium 2.5 mg/dL (1.6-2.6); Potassium 4.3 mmol/L (3.3-5.1); Sodium 131 mmol/L (135-145); Total Protein 7.1 g/dL (6.5-8.0)
[2023-03-23 14:50] LABS: Lactic Acid 0.6 mmol/L (0.5-2.0)
[2023-03-23 14:53] LABS: Platelet Count 314 X10*3/uL (160-400); White Blood Count 14.1 X10*3/uL (4.8-10.8)
[2023-03-23 14:54] LABS: SLIDE REVIEW VERIFIED
[2023-03-23 15:01] LABS: Troponin-I High Sensitivity 3.6 ng/L (<3.5-17.0)
[2023-03-23 15:02] LABS: B Type Natriuretic Peptide 24 pg/mL (<100)
[2023-03-23 15:16] LABS: TSH reflex Free T4 0.21 uIU/mL (0.32-4.0)
[2023-03-23 15:57] LABS: Free T4 (Free Thyroxine) 1.79 ng/dL (0.71-1.85)
--- NOTE | 2023-03-23 16:09 | PC.NURSE ---
urine sample sent to lab. IV unable to be obtained, attempted via US by . pt is a very difficult stick.
[2023-03-23 16:19] LABS: Appearance Urine Clear; Color Urine Dark Yellow; Glucose Urine UA Negative (Negative); Leukocyte Esterase Urine Small (1+) (Negative); Nitrite Urine Negative (Negative); PH 6.5 (5.0-9.0); Specific Gravity - Urine >= 1.030 (1.005-1.025); UMIC TRIGGER UACC YES; Urine Blood Moderate (2+) (Negative); Urine Ketones 15 mg/dL (Negative); Urine Protein 30 (1+) mg/dL (Neg-Trace)
[2023-03-23 16:25] LABS: Amphetamine Screen Urine Not Detected (Not Detect); Barbiturates, Urine Not Detected (Not Detect); Benzodiazepines Screen Urine Not Detected (Not Detect); Cannabinoid Screen Urine POSITIVE (Not Detect); Cocaine Screen Urine Not Detected (Not Detect); Fentanyl, urine Not Detected (Not Detect); Opiate Screen Urine Not Detected (Not Detect); Phencyclidine Screen Urine Not Detected (Not Detect)
[2023-03-23 16:43] LABS: Bacteria Urine Trace (None Seen); UACC Culture Trigger YES
[2023-03-23] MEDS: 0.9 % Sodium Chloride 1,000 ML 999 ML IVCONT (16:44)
--- NOTE | 2023-03-23 18:31 | PC.NURSE ---
pt remains dizzy, awaiting head ct. fluids finished infusing. will ctm
[2023-03-23 18:59] LABS: Hyaline Casts Urine 0-2 /LPF (0-2)
[2023-03-23] MEDS: 0.9 % Sodium Chloride 1,000 ML 999 ML IV (21:10)
[2023-03-23] MEDS: cefTRIAXone sodium 1 GM in 0.9 % Sodium Chloride 50 ML IV (21:10)
--- NOTE | 2023-03-23 21:42 | P.HPHOSP_ITS ---
History of Present Illness Date of Service: 03/23/23 Attending physician on admission: Theresa Maldonado Chief Complaint: Dizziness with standing Pt is a 63-year-old female with a PMH significant for?chronic hypoxic respiratory failure on 2L NC, COPD, hypertrophic cardiomyopathy, GERD, HTN, HLD, hypothyroidism, and seasonal allergies who presents from home via EMS to the ED with?generalized weakness, confusion, and dizziness. Pt is alert and oriented to self and time. Pt's family is at beside who help supply HPI. Pt states symptoms began approximately 2 weeks ago when pt began having nausea, vomiting, body aches, chills, and decreased appetite. Patient apparently could not keep much of anything down whether solids or liquids. Patient also began developing dizziness she describes as ?the rooms spinning.? Patient states she did fall once in her house yesterday, but denies loss of consciousness or head strike. Vomiting appears to have resolved by yesterday. Patient's family states patient has been having acute altered mental status the especially noticed earlier today. Patient has been having trouble with short-term memory and miss naming objects. Patient has also been noted to have generalized weakness and family notes that today patient could not even get out of bed. Patient denies abdominal pain, hematochezia, hematemesis. Patient denies any cough, and complains of chronic SOB that remains unchanged from baseline. In the ED patient was afebrile but tachycardic up to 101, tachypneic up to 24, and satting at 98% on 2 L NC. Labs were significant for leukocytosis of 14.1, sodium of 131, chloride of 91. Renal function baseline, hepatic function WNL. UA negative for UTI. CXR showed bilateral basilar infiltrates with left greater than right and possible right mid lung infiltrate. CT?of head found no acute intracranial pathology. CT of chest found marked pain and emphysematous change of the lungs with chronic bronchial wall thickening in left perihilar density extending to the left upper lobe which is worse than prior CT scan on 07/28/2022. EKG demonstrated normal sinus rhythm without evidence of ST elevations or depressions. Pt was treated with DuoNebs, IVF, ceftriaxone. Pt will be admitted to the hospital for treatment further evaluation of presyncope and altered mental status. Review of Systems Review of Systems: Dizziness Confusion Decreased appetite Nausea, vomiting Chills No abdominal pain Chronic SOB, at baseline Denies cough Denies chest pain/pressure, palpitations Yes all other systems are reviewed and are negative [facility] Medical History Pulmonary nodule Respiratory failure with hypoxia Family History Father HTN (hypertension) Diabetes CVD (cardiovascular disease) Mother Diabetes HTN (hypertension) Surgical History History of cardiac cath History of skin graft Hx of eye surgery Social History Alcohol intake: never Patient Tobacco Use Status: Former Tobacco user Quit Date: 2014 Years Smoked: 35+ Smoked in Last 30 Days: No Use of substances other than those prescribed or required for medical reasons: No Advance Directives: Yes Advance Directives Information Provided: No Advance Directives on File: No Meds Allergies Allergy/AdvReac Type Severity Reaction Status Date / Time carvedilol Allergy Unknown chest Verified 01/31/23 13:14 tighness,sob,difficulty breathing lorazepam [Ativan] Allergy Unknown affects Verified 01/31/23 13:14 psychy Active Medications: Current Medications Sodium Chloride (Ns) 1,000 mls @ 999 mls/hr IV .Q1H1M KATLIN Stop: 03/23/23 21:45 Last Admin: 03/23/23 21:10 Dose: 999 mls/hr Pharmacy Consult (Consult Rx Perform Med Rec) 1 each MISCELLANE ONCE PRN PRN Reason: Consult order Home Medications Medication Instructions Recorded Confirmed Last Taken Type levothyroxine 100 mcg tablet 100 mcg PO DAILY@0600 09/21/20 01/31/23 Unknown History sertraline 50 mg tablet 50 mg PO DAILY 09/21/20 01/31/23 Unknown History simvastatin 40 mg tablet 40 mg PO BEDTIME 09/21/20 01/31/23 Unknown History albuterol sulfate 2.5 mg/3 mL 2.5 mg inhalation Q6H PRN 11/10/21 01/31/23 Unknown History (0.083 %) solution for nebulization Shortness Of Breath Or Wheezing pantoprazole 40 mg tablet,delayed 40 mg PO DAILY@0630 03/30/22 01/31/23 Unknown History release fluticasone propionate 50 intranasal 03/23/23 Unknown History mcg/actuation nasal spray,suspension hydroxyzine pamoate 25 mg capsule 25 mg PO BEDTIME 03/23/23 Unknown History Physical Exam Vital Signs and Narrative: Vital Signs: Last Vital Signs Temp 97.7 F 03/23/23 20:24 Pulse 87 03/23/23 20:24 Resp 24 H 03/23/23 20:24 BP 104/56 L 03/23/23 20:24 Pulse Ox 96 03/23/23 20:24 O2 Del Method Nasal Cannula 03/23/23 20:24 O2 Flow Rate 2 03/23/23 20:24 Oxygen Flow Rate 2 03/23/23 12:10 BMI result Body Mass Index 25.4 Constitutional: Somnolent but arousable, slightly confused, answering questions appropriately, in no acute distress. Mental Status: Oriented to person and place but not to time or situation. Eyes: Pupils are equal, round, and reactive to light. Ear, Nose, and Throat: Oropharynx clear, mucous membranes moist. Ears and nose without deformities. Trachea midline. Respiratory: Diminished breath sounds bilaterally. No wheezing, rales, or rhonchi. Cardiovascular: S1, S2 regular. No murmurs, rubs, or gallops. Gastrointestinal: Abdomen soft, non-tender, non-distended. Normal bowel sounds. Neurologic: Cranial nerves II-XII are grossly intact bilaterally. No focal neurological deficits. Moves all extremities spontaneously. Skin: No rashes or lesions noted. Musculoskeletal: No cyanosis or clubbing. Extremities: No edema. Psychiatric: Pleasantly confused. Results Labs 03/23/23 14:14 03/23/23 14:14 Labs: Laboratory Results - last 24 hr 03/23/23 03/23/23 03/23/23 12:32 14:14 14:14 MCV 89.5 MCH 30.5 MCHC 34.0 RDW 11.8 Plt Count 314 MPV 9.9 Immature Gran % (Auto) 0.5 H Neut % (Auto) 83.6 H Lymph % (Auto) 7.5 L [place] % (Auto) 7.3 Eos % (Auto) 0.6 Baso % (Auto) 0.5 Lymph # (Auto) 1.1 L [place] # (Auto) 1.0 Eos # (Auto) 0.1 Baso # (Auto) 0.1 Abs Immat Gran (auto) 0.07 H Absolute Neuts (auto) 11.8 H Absolute Nucleated RBC 0.000 Nucleated RBC % (auto) 0.0 Smear Tech's Comments VERIFIED Anion Gap 13 Estim Creat Clear Calc 81.1 Estimated GFR > 60 POC Glucose 151 H Random Glucose 99 Lactic Acid Calcium 9.0 Magnesium 2.5 Total Bilirubin 0.6 Direct Bilirubin 0.2 AST 19 ALT 20 Alkaline Phosphatase 75 Troponin I High Sens B-Natriuretic Peptide Total Protein 7.1 Albumin 3.8 TSH Free T4 Urine Color Urine Appearance Urine pH Ur Specific [place] Urine Protein Urine Glucose (UA) Urine Ketones Urine Blood Urine Nitrite Ur Leukocyte Esterase Urine RBC Urine WBC Ur Squamous Epith Cells Urine Bacteria Hyaline Casts Urine Opiates Screen Urine Fentanyl Screen Ur Barbiturates Screen Ur Phencyclidine Scrn Ur Amphetamines Screen U Benzodiazepines Scrn Urine Cocaine Screen U Marijuana (THC) Screen Ethyl Alcohol < 10 03/23/23 03/23/23 03/23/23 14:33 14:33 14:33 MCV MCH MCHC RDW Plt Count MPV Immature Gran % (Auto) Neut % (Auto) Lymph % (Auto) [place] % (Auto) Eos % (Auto) Baso % (Auto) Lymph # (Auto) Mcn[place] # (Auto) Eos # (Auto) Baso # (Auto) Abs Immat Gran (auto) Absolute Neuts (auto) Absolute Nucleated RBC Nucleated RBC % (auto) Smear Tech's Comments Anion Gap Estim Creat Clear Calc Estimated GFR POC Glucose Random Glucose Lactic Acid 0.6 Calcium Magnesium Total Bilirubin Direct Bilirubin AST ALT Alkaline Phosphatase Troponin I High Sens 3.6 B-Natriuretic Peptide 24 Total Protein Albumin TSH Free T4 Urine Color Urine Appearance Urine pH Ur Specific [place] Urine Protein Urine Glucose (UA) Urine Ketones Urine Blood Urine Nitrite Ur Leukocyte Esterase Urine RBC Urine WBC Ur Squamous Epith Cells Urine Bacteria Hyaline Casts Urine Opiates Screen Urine Fentanyl Screen Ur Barbiturates Screen Ur Phencyclidine Scrn Ur Amphetamines Screen U Benzodiazepines Scrn Urine Cocaine Screen U Marijuana (THC) Screen Ethyl Alcohol 03/23/23 03/23/23 03/23/23 14:33 16:07 16:07 MCV MCH MCHC RDW Plt Count MPV Immature Gran % (Auto) Neut % (Auto) Lymph % (Auto) [place] % (Auto) Eos % (Auto) Baso % (Auto) Lymph # (Auto) [place] # (Auto) Eos # (Auto) Baso # (Auto) Abs Immat Gran (auto) Absolute Neuts (auto) Absolute Nucleated RBC Nucleated RBC % (auto) Smear Tech's Comments Anion Gap Estim Creat Clear Calc Estimated GFR POC Glucose Random Glucose Lactic Acid Calcium Magnesium Total Bilirubin Direct Bilirubin AST ALT Alkaline Phosphatase Troponin I High Sens B-Natriuretic Peptide Total Protein Albumin TSH 0.21 L Free T4 1.79 Urine Color Dark Yellow Urine Appearance Clear Urine pH 6.5 Ur Specific [place] >= 1.030 H Urine Protein 30 (1+) H Urine Glucose (UA) Negative Urine Ketones 15 Urine Blood Moderate (2+) H Urine Nitrite Negative Ur Leukocyte Esterase Small (1+) H Urine RBC 3-5 H Urine WBC 6-10 H Ur Squamous Epith Cells 3-5 Urine Bacteria Trace Hyaline Casts 0-2 Urine Opiates Screen Not Detected Urine Fentanyl Screen Not Detected Ur Barbiturates Screen Not Detected Ur Phencyclidine Scrn Not Detected Ur Amphetamines Screen Not Detected U Benzodiazepines Scrn Not Detected Urine Cocaine Screen Not Detected U Marijuana (THC) Screen POSITIVE H Ethyl Alcohol Imaging Radiologist's Impressions: Impressions Chest X-Ray 03/23/23 14:20 IMPRESSION: Findings suggest bilateral basilar infiltrates left greater than right and possible right midlung subtle infiltrate. Follow-up recommended. No failure or effusion Head CT 03/23/23 18:49 IMPRESSION: No acute intracranial pathology. Assessment and Plan (1) Dizziness: Status: Acute (2) Altered mental status: Status: Acute Plan Pt is a 63-year-old female with a PMH significant for?chronic hypoxic respiratory failure on 2L NC, COPD, hypertrophic cardiomyopathy, GERD, HTN, HLD, hypothyroidism, and seasonal allergies who presents from home via EMS to the ED with?generalized weakness, confusion, and dizziness. Patient will be admitted to observation on telemetry for continued evaluation and treatment of presyncope and altered mental status. Presyncope and dizziness Patient complaining of lightheadedness and dizziness even at rest Likely secondary to volume depletion due to viral gastroenteritis since resovle d, patient with vomiting and anorexia for the past 2 weeks Patient resuscitated with IVF PT/OT evaluation in the morning Altered mental status Possibly secondary to dehydration vs viral infection Patient resuscitated with IVF in ED UA negative for UTI Check ammonia level Monitor mentation Question of prehilar density CT of chest showed chronic bronchial wall thickening and left perihilar density extending into the left upper lobe, worse than prior CT on 07/28/2022 Patient received ceftriaxone in ED Nereyda kim for wheezing Check procalcitonin Pulmonology consult Hyponatremia Patient's sodium 131 at time of presentation Patient resuscitated with IVF in the ED Follow BMP GERD Continue pantoprazole HLD Continue statin Hypothyroidism Continue levothyroxine Depression Continue sertraline Full Code Attending:?Dr. Maldonado DVT Prophylaxis: Lovenox Patient will be admitted to observation on telemetry for continued evaluation and treatment of presyncope and altered mental status. Time Spent With Patient Time: Total time managing care of this patient today ____ minutes. Quality Stroke Does the patient have a stroke diagnosis?: No VTE Prior VTE?: No VTE Risk Level:: Medical - moderate - high VTE Device Contraindication: Treatment Not Indicated VTE Drug Contraindication: N/A - Med Ordered
[2023-03-23] MEDS: Enoxaparin Sodium 40 MG/0.4 ML SYRINGE SUBCUT (23:01)
[2023-03-23] MEDS: 0.9 % Sodium Chloride Flush 3 ML SYRINGE IVFLUSH (23:03)
[2023-03-23 23:28] LABS: Procalcitonin < 0.02 ng/mL
[2023-03-24] VITALS (12 sets, daily range): BP systolic 106–127; BP diastolic 56–70; PULSE 72–89; RESP 18–20; TEMP 36.9–37.1; O2SAT 94–99
[2023-03-24 00:02] LABS: Ammonia 86 umol/L (13-55)
--- NOTE | 2023-03-24 01:17 | PC.NURSE ---
Pt assisted to use bedside commode at this time.
--- NOTE | 2023-03-24 02:12 | PC.NURSE ---
Report to Teri on IMC for continued care.
[2023-03-24 02:24] LABS: Influenza A PCR NEGATIVE (Negative); Influenza B PCR NEGATIVE (Negative); Resp Syncy Virus RNA Qual PCR NEGATIVE (Negative); SARS COV2 PCR INHOUSE NEGATIVE (Negative)
[2023-03-24] MEDS: Lactulose 20 GM/30 ML SOLUTION 30 GM PO (02:25)
[2023-03-24 07:17] LABS: MANUAL DIFF FLAG NO
[2023-03-24 07:19] LABS: Basophils Absolute Auto 0.1 X10*3/uL (0.0-0.2); Basophils Percent Auto 0.6 % (0-2); Eosinophils Absolute Auto 0.2 X10*3/uL (0.0-0.4); Eosinophils Percent Auto 1.7 % (0-4); Hematocrit 36.6 % (37.0-47.0); Imm Gran Abs Auto 0.06 X10*3/uL (0.00-0.03); Imm Gran Pct Auto 0.6 % (0.0-0.4); Lymphocytes Absolute Auto 1.6 X10*3/uL (1.2-4.9); Lymphocytes Percent Auto 14.9 % (20-40); Mean Corpuscular HGB Conc 32.8 g/dl (31.0-35.0); Mean Corpuscular Hemoglobin 30.3 pg (27.0-33.0); Mean Corpuscular Volume 92.4 fL (80.0-98.0); Mean Platelet Volume 9.5 fL (9.4-12.3); Monocytes Absolute Auto 0.9 X10*3/uL (0.1-1.2); Monocytes Percent Auto 8.4 % (2-11); Neutrophils Absolute Auto 7.7 x10*3/uL (2.0-8.3); Neutrophils Percent Auto 73.8 % (45-73); Platelet Count 272 X10*3/uL (160-400); Red Blood Count 3.96 X10*6/uL (4.20-5.50); Red Cell Distribution Width 11.9 % (11.0-16.0); White Blood Count 10.4 X10*3/uL (4.8-10.8)
[2023-03-24 07:27] LABS: Ammonia 36 umol/L (13-55)
[2023-03-24 07:35] LABS: Anion Gap 14 (12-20); Blood Urea Nitrogen 8 mg/dL (9-16); Calcium 8.2 mg/dL (8.4-10.2); Carbon Dioxide 27 mmol/L (22-29); Chloride 101 mmol/L (96-108); Creatinine Clr Calc Pharmacy 77.1; Estimated Glomerular Filt Rate > 60; Glucose Random 89 mg/dL (60-115); Potassium 4.6 mmol/L (3.3-5.1); Sodium 137 mmol/L (135-145)
--- NOTE | 2023-03-24 07:49 | PHA.MEDREC ---
Pharmacy Consult ? Medication Reconciliation Pharmacy has completed the medication reconciliation. Spoke to patient's spouse George to confirm meds.
--- NOTE | 2023-03-24 09:17 | MHC.CM.PN ---
Patient is here with AMS; CM spoke with /George and Daughter/HCP/Cady @ [phone] and addressed SNYDER with them (original has been left at bedside, per Cady's request and a copy has been placed on the chart). Patient lives in a trailer with her and she uses a walker only PRN. Home/self care is the goal and CM has initiated and will follow for dc planning. Patient is [facility] and her PCP is Dr. Bakari Lozano.
--- NOTE | 2023-03-24 10:33 | PM.CNPUL ---
History of Present Illness History of Present Illness Consult date: 03/24/23 Reason for consult: dyspnea, cough, COPD and other (CHANGE IN MENTAL STATUS ) Chief complaint: dizziness Narrative: Pulmonary consultation: This 63 years old female is a well known case of advanced chronic obstructive pulmonary disease, with past history of smoking. In addition she also has symptoms of GERD, hyperlipidemia, hypertension, and hypertrophic cardiomyopathy. She has been admitted a few times with acute exacerbation of COPD, and usually responds to treatment in the hospital with steroids , , antibiotics and DuoNeb updrafts. She has also been O2. 3 L/minute most of the time In the past she has had mild to moderate hypercapnia, and has well-compensated chronic respiratory failure. This time she comes with about 2 weeks history of not feeling well, but no fever or chills, Started having some nausea if 4-5 days ago. Also has been feeling lightheaded. In the past 1 week The family has notice change in her mental status in the last few days. She was initially evaluated in the emergency room and is admitted for treatment in the hospital. There is a question of acute respiratory infection and she is on IV Rocephin in addition to other treatment. The patient is the alert to but still somewhat disorientated at this time. Review of Systems Review of Systems: Yes all other systems are reviewed and are negative Constitutional: Constitutional: Reports weakness Eyes: Eyes: Reports no additional eye complaints ENT: Reports system reviewed and no additional complaints, except as documented and Reports dizziness Cardiovascular: Cardiovascular: Denies chest pain, Denies irregular heart rhythm and Denies leg edema Respiratory: Respiratory: Reports as per HPI Gastrointestinal: Gastrointestinal: Reports nausea and Reports vomiting Genitourinary: Genitourinary: Reports no additional female genitourinary complaints Musculoskeletal: Musculoskeletal: Reports no additional musculoskeletal complaints Integumentary/Breasts: Skin/Breast: Reports system reviewed and no additional complaints, except as docu Neurologic: Reports confusion (Partially), Reports dizziness and Reports weakness Psychiatric: Psychiatric: Reports confusion (Partially) Endocrine: Endocrine: Reports no additional endocrine complaints [facility] Past Medical History Medical History (Updated 03/24/23 @ 10:44 by Jo-Ann Cunningham MD) COPD exacerbation Pulmonary nodule Respiratory failure with hypoxia Family History Family History Father HTN (hypertension) Diabetes CVD (cardiovascular disease) Mother Diabetes HTN (hypertension) Surgical History Surgical History History of cardiac cath History of skin graft Hx of eye surgery Social History Social History Household Members: Spouse Housing: House Do you presently have visiting nurse or other home services: No Alcohol intake: never Patient Tobacco Use Status: Former Tobacco user Quit Date: 8 years ago Years Smoked: 35+ Advance Directives Date on File: 03/24/23 service: No Current occupational status: retired and disabled Meds Allergies Allergy/AdvReac Type Severity Reaction Status Date / Time carvedilol Allergy Unknown chest Verified 01/31/23 13:14 tighness,sob,difficulty breathing lorazepam [Ativan] Allergy Unknown affects Verified 01/31/23 13:14 psychy Active Medications: Current Medications Acetaminophen (Acetaminophen 325 Mg Tablet) 650 mg PO Q6H PRN PRN Reason: Pain, Mild (Pain Scale 1-3) Albuterol Sulfate (Albuterol Sulfate (0.083%) 2.5 Mg/3 Ml Vial.Neb) 2.5 mg INHALE Q6H PRN PRN Reason: Shortness Of Breath Or Wheezing Albuterol Sulfate (Albuterol Sulfate 90 Mcg 8 Gm Inhaler) 2 puff INHALE QID PRN PRN Reason: for wheezing Albuterol/Ipratropium (Albuterol/Iprat 2.5/0.5mg 3 Ml Ampul.Neb) 3 ml INHALE RQ4H WHILE AWAKE [facility] Last Admin: 03/24/23 07:53 Dose: Not Given Albuterol/Ipratropium (Albuterol/Iprat 2.5/0.5mg 3 Ml Ampul.Neb) 3 ml INHALE RQ4H PRN PRN Reason: Wheezing Atorvastatin Calcium (Atorvastatin Calcium 20 Mg Tablet) 20 mg PO BEDTIME [facility] Enoxaparin Sodium (Enoxaparin Sodium 40 Mg/0.4 Ml Syringe) 40 mg SUBCUT Q24H [facility] Last Admin: 03/23/23 23:01 Dose: 40 mg Fluticasone Propionate (Fluticasone Propionate Nasal 16 Gm [place]) 1 spray NOSTRIL-B BID [facility] Fluticasone/Vilanterol (Fluticasone/Vilanterol 200/25 Blst.W.Dev) 1 puff [facility] Levothyroxine Sodium (Levothyroxine Sodium 100 Mcg Tablet) 100 mcg PO DAILY@0600 [facility] Melatonin (Melatonin 3 Mg Tablet) 6 mg PO BEDTIME PRN PRN Reason: Insomnia Omeprazole (Omeprazole 20 Mg Capsule.Dr) 20 mg PO DAILY@0630 [facility] Ondansetron HCl (Ondansetron Hcl 4 Mg/2 Ml Vial) 4 mg IVPUSH Q8H PRN PRN Reason: Nausea and Vomiting Pharmacy Consult (Consult Rx Perform Med Rec) 1 each MISCELLANE ONCE PRN PRN Reason: Consult order Sertraline HCl (Sertraline Hcl 50 Mg Tablet) 50 mg PO DAILY [facility] Sodium Chloride (0.9 % Sodium Chloride Flush 3 Ml Syringe) [facility] Last Admin: 03/23/23 23:03 Dose: 3 ml Tiotropium [place] (Tiotropium [place] 18 Mcg Cap.W.Dev) 1 puff INHALE [facility] Home Medications Medication Instructions Recorded Confirmed Last Taken Type levothyroxine 100 mcg tablet 100 mcg PO DAILY@0600 09/21/20 03/24/23 03/23/23 History sertraline 50 mg tablet 50 mg PO DAILY 09/21/20 03/24/23 03/23/23 History simvastatin 40 mg tablet 40 mg PO BEDTIME 09/21/20 03/24/23 03/23/23 History albuterol sulfate 2.5 mg/3 mL 2.5 mg inhalation Q6H PRN 11/10/21 03/24/23 Unknown History (0.083 %) solution for nebulization Shortness Of Breath Or Wheezing pantoprazole 40 mg tablet,delayed 40 mg PO DAILY@0630 03/30/22 03/24/23 03/23/23 History release fluticasone propionate 50 1 spray intranasal BID 03/23/23 03/24/23 03/23/23 History mcg/actuation nasal spray,suspension ascorbic acid (vitamin C) 1,000 mg 1 g PO DAILY 03/24/23 03/24/23 03/23/23 History tablet (Vitamin C) cetirizine 10 mg tablet 10 mg PO DAILY PRN Allergic 03/24/23 03/24/23 Unknown History Symptoms cholecalciferol (vitamin D3) 25 25 mcg PO DAILY 03/24/23 03/24/23 03/23/23 History mcg (1,000 unit) tablet (Vitamin D3) prednisone 20 mg tablet 20 mg PO BID PRN copd exacerbation 03/24/23 03/24/23 Unknown History Physical Exam Vital Signs: Vital Signs: Last Vital Signs Temp 98.6 F 03/24/23 07:05 Pulse 87 03/24/23 07:20 Resp 20 03/24/23 07:05 BP 125/57 L 03/24/23 07:20 Pulse Ox 97 03/24/23 07:05 O2 Del Method Nasal Cannula 03/24/23 07:05 O2 Flow Rate 3 03/24/23 07:05 Oxygen Flow Rate 2 03/23/23 12:10 BMI result Body Mass Index 25.4 Const: General: alert, awake and confusion (Partially) Orientation/consciousness: patient oriented x3 and confusion (Partially) HEENT: Head: Yes normal to inspection General nose exam: No nasal polyps present and No nasal discharge present Face and sinus: Yes sinuses nontender Mouth: oropharynx normal Throat: Yes posterior oropharynx normal Eyes: General: appearance normal, both eyes and all related structures Neck: Neck: Yes normal visual inspection, Yes no lymphadenopathy, Yes trachea midline and Yes no JVD Thyroid: Thyroid normal Chest: Chest palpation & inspection: normal inspection of the chest, normal palpation of entire chest wall and no tenderness Resp: Other: Percussion note hyper-resonant, breath sounds are very distant on both sides, No definite wheezes or crepitations are heard. Cardio: Palpation: normal PMI Rate: regular rate Rhythm: regular rhythm Heart sounds: no gallops and no murmurs GI: Palpation (GI): Soft to palpation, nontender, No hepatosplenomegaly present and no masses Auscultation: normal bowel sounds Back/Spine/Pelvis: Thoracic/Lumbar Spine: thoracic and lumbar spine normal to inspection Skin: General skin exam: no rashes or lesions noted Neuro: General: patient oriented x3 and confusion (Partially) Cranial nerves: Yes CN's II-XII intact bilaterally Extrem: General: Yes normal to inspection, Yes no clubbing, cyanosis or edema and Yes no calf tenderness Psych: Speech and movement: Normal speech and movement present Results Laboratory Findings 03/24/23 07:11 03/24/23 07:11 Abnormal lab findings: Abnormal Labs 03/23/23 03/23/23 03/23/23 12:32 14:14 14:14 WBC 14.1 H RBC Hct Immature Gran % (Auto) 0.5 H Neut % (Auto) 83.6 H Lymph % (Auto) 7.5 L Lymph # (Auto) 1.1 L Abs Immat Gran (auto) 0.07 H Absolute Neuts (auto) 11.8 H Sodium 131 L Chloride 91 L Carbon Dioxide 31 H BUN POC Glucose 151 H Calcium Ammonia TSH Ur Specific [place] Urine Protein Urine Blood Ur Leukocyte Esterase Urine RBC Urine WBC U Marijuana (THC) Screen 03/23/23 03/23/23 03/23/23 14:33 16:07 16:07 WBC RBC Hct Immature Gran % (Auto) Neut % (Auto) Lymph % (Auto) Lymph # (Auto) Abs Immat Gran (auto) Absolute Neuts (auto) Sodium Chloride Carbon Dioxide BUN POC Glucose Calcium Ammonia TSH 0.21 L Ur Specific [place] >= 1.030 H Urine Protein 30 (1+) H Urine Blood Moderate (2+) H Ur Leukocyte Esterase Small (1+) H Urine RBC 3-5 H Urine WBC 6-10 H U Marijuana (THC) Screen POSITIVE H 03/23/23 03/24/23 03/24/23 23:48 07:11 07:11 WBC RBC 3.96 L Hct 36.6 L Immature Gran % (Auto) 0.6 H Neut % (Auto) 73.8 H Lymph % (Auto) 14.9 L Lymph # (Auto) Abs Immat Gran (auto) 0.06 H Absolute Neuts (auto) Sodium Chloride Carbon Dioxide BUN 8 L POC Glucose Calcium 8.2 L D Ammonia 86 H TSH Ur Specific [place] Urine Protein Urine Blood Ur Leukocyte Esterase Urine RBC Urine WBC U Marijuana (THC) Screen Diagnostic Findings CT scan - chest: report reviewed and image reviewed Assessment and Plan (1) COPD exacerbation: Status: Acute (2) Respiratory failure with hypoxia: Status: Acute (3) Pulmonary nodule: Status: Acute (4) Altered mental status: Status: Acute Plan This 63 years old female is a past smoker, has advanced chronic obstructive pulmonary disease. At present she seems to have an acute exacerbation which may be due to low-grade respiratory infection. We need to check PCO 2, because she is prone to have CO2 retention, in the past. RX : Okay to treat with IV Rocephin, empirically for at least 5 days. DuoNeb updraft Q 6 hours while awake. Albuterol updraft. Q 4 hours p.r.n. for acute distress O2 2-3 L/minute to keep O2 sat just above 90%. Avoid any sedation. Should be treated with IV Solu-Medrol 40 mg Q 8 hours for 1 or 2 days followed by prednisone 40 mg a day for 5 days. Depending upon the results of venous blood gas/ CO2 level, will decide if she needs NIVS at nighttime. Thank you for asking me to see this patient. Time Spent With Patient Time: Total time managing care of this patient today ____ minutes. Procedures Date of Service Date of Service: 03/24/23
[2023-03-24 10:55] LABS: VBG Base Excess 8.5 mmol/L; VBG HCO3 31 mmol/L (22-26); VBG pCO2 38 mmHg; VBG pH 7.52 (7.32-7.43); VBG pO2 153 mmHg
[2023-03-24] MEDS: Albuterol/Iprat 2.5/0.5MG 3 ML AMPUL.NEB INHALE ×3 (11:03→19:01)
[2023-03-24] MEDS: Acetaminophen 325 MG TABLET 650 MG PO (12:01)
[2023-03-24] MEDS: Levothyroxine Sodium 100 MCG TABLET PO (12:02)
[2023-03-24] MEDS: Sertraline HCL 50 MG TABLET PO (12:02)
[2023-03-24] MEDS: 0.9 % Sodium Chloride Flush 3 ML SYRINGE IVFLUSH ×2 (12:02→18:56)
[2023-03-24] MEDS: methylPREDNISolone Sod Succ 40 MG/ML VIAL IVPUSH ×2 (12:02→19:07)
--- NOTE | 2023-03-24 12:08 | MHC.CM.PN ---
Patient has been changed from OBSERVATION to INPATIENT; IMM addressed.
[2023-03-24 12:16] LABS: Venous Blood Gas Refer to POC result
--- NOTE | 2023-03-24 13:20 | P.PNIM_ITS ---
Subjective Subjective Date of Service: 03/24/23 Interval History: seen and examined this morning follow up for dizziness, AMS pt awake and alert, a little vague, reports dizziness primarily with standing diarrhea resolved, no abdominal pain denies sob, cough Review of Systems Review of Systems: Yes all other systems are reviewed and are negative Constitutional Constitutional: Denies chills and Denies fever(s) ENT Ears, Nose, Mouth, and Throat: Reports dizziness Cardiovascular Cardiovascular: Denies chest pain, Denies palpitations and Denies dyspnea Respiratory Respiratory: Denies cough and Denies dyspnea Gastrointestinal Gastrointestinal: Denies abdominal pain, Denies diarrhea, Denies nausea and Denies vomiting Neurologic Neurologic: Reports dizziness Endocrine Endocrine: Denies palpitations Physical Exam Vital Signs: Vital Signs: Last Vital Signs Temp 98.4 F 03/24/23 11:23 Pulse 78 03/24/23 11:23 Resp 20 03/24/23 11:23 BP 114/70 03/24/23 11:23 Pulse Ox 99 03/24/23 11:23 O2 Del Method Nasal Cannula 03/24/23 11:23 O2 Flow Rate 3 03/24/23 11:23 Oxygen Flow Rate 2 03/23/23 12:10 BMI result Body Mass Index 25.4 Const: General: comfortable, no acute distress, alert and awake Nutritional Appearance: average body habitus Orientation/consciousness: oriented to person and oriented to place Resp: Effort & Inspection: normal respiratory effort, able to speak in complete sentences, no respiratory distress and no use of accessory muscles Cardio: Rate: regular rate Heart sounds: S1 normal heart sound present and S2 normal heart sound present GI: Inspection: No distended Palpation (GI): Soft to palpation and nontender Neuro: Other: no focal deficits appreciated, General: oriented to person, oriented to place and moves all extremities Extrem: General: Yes no pedal edema Objective Data Active Medications Acetaminophen (Acetaminophen 325 Mg Tablet) 650 mg PO Q6H PRN PRN Reason: Pain, Mild (Pain Scale 1-3) Last Admin: 03/24/23 12:01 Dose: 650 mg Documented By: JACK Albuterol Sulfate (Albuterol Sulfate (0.083%) 2.5 Mg/3 Ml Vial.Neb) 2.5 mg INHALE Q6H PRN PRN Reason: Shortness Of Breath Or Wheezing Albuterol Sulfate (Albuterol Sulfate 90 Mcg 8 Gm Inhaler) 2 puff INHALE QID PRN PRN Reason: for wheezing Albuterol/Ipratropium (Albuterol/Iprat 2.5/0.5mg 3 Ml Ampul.Neb) 3 ml INHALE RQ4H WHILE AWAKE [facility] Last Admin: 03/24/23 11:03 Dose: 3 ml Documented By: MERRY Albuterol/Ipratropium (Albuterol/Iprat 2.5/0.5mg 3 Ml Ampul.Neb) 3 ml INHALE RQ4H PRN PRN Reason: Wheezing Atorvastatin Calcium (Atorvastatin Calcium 20 Mg Tablet) 20 mg PO BEDTIME [facility] Enoxaparin Sodium (Enoxaparin Sodium 40 Mg/0.4 Ml Syringe) 40 mg SUBCUT Q24H [facility] Last Admin: 03/23/23 23:01 Dose: 40 mg Documented By: MARK Fluticasone Propionate (Fluticasone Propionate Nasal 16 Gm [place]) 1 spray NOSTRIL-B BID [facility] Fluticasone/Vilanterol (Fluticasone/Vilanterol 200/25 Blst.W.Dev) 1 puff INHALE RDAILY [facility] Last Admin: 03/24/23 10:58 Dose: Not Given Documented By: CARMEN Non-Admin Reason: med unavail pharmacy called Levothyroxine Sodium (Levothyroxine Sodium 100 Mcg Tablet) 100 mcg PO DAILY@0600 [facility] Last Admin: 03/24/23 12:02 Dose: 100 mcg Documented By: JACK Melatonin (Melatonin 3 Mg Tablet) 6 mg PO BEDTIME PRN PRN Reason: Insomnia Methylprednisolone Sodium Succinate (Methylprednisolone Sod Succ 40 Mg/Ml Vial) 40 mg IVPUSH Q8H [facility] Last Admin: 03/24/23 12:02 Dose: 40 mg Documented By: JACK Omeprazole (Omeprazole 20 Mg Capsule.Dr) 20 mg PO DAILY@0630 [facility] Ondansetron HCl (Ondansetron Hcl 4 Mg/2 Ml Vial) 4 mg IVPUSH Q8H PRN PRN Reason: Nausea and Vomiting Pharmacy Consult (Consult Rx Perform Med Rec) 1 each MISCELLANE ONCE PRN PRN Reason: Consult order Sertraline HCl (Sertraline Hcl 50 Mg Tablet) 50 mg PO DAILY [facility] Last Admin: 03/24/23 12:02 Dose: 50 mg Documented By: JACK Sodium Chloride (0.9 % Sodium Chloride Flush 3 Ml Syringe) 3 ml IVFLUSH QSHIFT [facility] Last Admin: 03/24/23 12:02 Dose: 3 ml Documented By: JACK Tiotropium [place] (Tiotropium [place] 18 Mcg Cap.W.Dev) 1 puff INHALE RDAILY [facility] Labs 03/24/23 07:11 03/24/23 07:11 Labs: Laboratory Results - last 24 hr 03/23/23 03/23/23 03/23/23 14:14 14:14 14:33 MCV 89.5 MCH 30.5 MCHC 34.0 RDW 11.8 Plt Count 314 MPV 9.9 Immature Gran % (Auto) 0.5 H Neut % (Auto) 83.6 H Lymph % (Auto) 7.5 L [place] % (Auto) 7.3 Eos % (Auto) 0.6 Baso % (Auto) 0.5 Lymph # (Auto) 1.1 L [place] # (Auto) 1.0 Eos # (Auto) 0.1 Baso # (Auto) 0.1 Abs Immat Gran (auto) 0.07 H Absolute Neuts (auto) 11.8 H Absolute Nucleated RBC 0.000 Nucleated RBC % (auto) 0.0 Smear Tech's Comments VERIFIED VBG pH VBG pCO2 VBG pO2 VBG HCO3 VBG O2 Saturation VBG Base Excess Anion Gap 13 Estim Creat Clear Calc 81.1 Estimated GFR > 60 Random Glucose 99 Lactic Acid 0.6 Calcium 9.0 Magnesium 2.5 Total Bilirubin 0.6 Direct Bilirubin 0.2 AST 19 ALT 20 Alkaline Phosphatase 75 Ammonia Troponin I High Sens B-Natriuretic Peptide Total Protein 7.1 Albumin 3.8 Procalcitonin < 0.02 TSH Free T4 Urine Color Urine Appearance Urine pH Ur Specific [place] Urine Protein Urine Glucose (UA) Urine Ketones Urine Blood Urine Nitrite Ur Leukocyte Esterase Urine RBC Urine WBC Ur Squamous Epith Cells Urine Bacteria Hyaline Casts Urine Opiates Screen Urine Fentanyl Screen Ur Barbiturates Screen Ur Phencyclidine Scrn Ur Amphetamines Screen U Benzodiazepines Scrn Urine Cocaine Screen U Marijuana (THC) Screen Ethyl Alcohol < 10 Influenza Type A (PCR) Influenza Type B (PCR) RSV RNA Qual (PCR) SARS-CoV-2 RNA (RT-PCR) 0503/23/23 03/23/23 14:33 14:33 14:33 MCV MCH MCHC RDW Plt Count MPV Immature Gran % (Auto) Neut % (Auto) Lymph % (Auto) [place] % (Auto) Eos % (Auto) Baso % (Auto) Lymph # (Auto) [place] # (Auto) Eos # (Auto) Baso # (Auto) Abs Immat Gran (auto) Absolute Neuts (auto) Absolute Nucleated RBC Nucleated RBC % (auto) Smear Tech's Comments VBG pH VBG pCO2 VBG pO2 VBG HCO3 VBG O2 Saturation VBG Base Excess Anion Gap Estim Creat Clear Calc Estimated GFR Random Glucose Lactic Acid Calcium Magnesium Total Bilirubin Direct Bilirubin AST ALT Alkaline Phosphatase Ammonia Troponin I High Sens 3.6 B-Natriuretic Peptide 24 Total Protein Albumin Procalcitonin TSH 0.21 L Free T4 1.79 Urine Color Urine Appearance Urine pH Ur Specific [place] Urine Protein Urine Glucose (UA) Urine Ketones Urine Blood Urine Nitrite Ur Leukocyte Esterase Urine RBC Urine WBC Ur Squamous Epith Cells Urine Bacteria Hyaline Casts Urine Opiates Screen Urine Fentanyl Screen Ur Barbiturates Screen Ur Phencyclidine Scrn Ur Amphetamines Screen U Benzodiazepines Scrn Urine Cocaine Screen U Marijuana (THC) Screen Ethyl Alcohol Influenza Type A (PCR) Influenza Type B (PCR) RSV RNA Qual (PCR) SARS-CoV-2 RNA (RT-PCR) 03/23/23 03/23/23 03/23/23 16:07 16:07 23:48 MCV MCH MCHC RDW Plt Count MPV Immature Gran % (Auto) Neut % (Auto) Lymph % (Auto) [place] % (Auto) Eos % (Auto) Baso % (Auto) Lymph # (Auto) [place] # (Auto) Eos # (Auto) Baso # (Auto) Abs Immat Gran (auto) Absolute Neuts (auto) Absolute Nucleated RBC Nucleated RBC % (auto) Smear Tech's Comments VBG pH VBG pCO2 VBG pO2 VBG HCO3 VBG O2 Saturation VBG Base Excess Anion Gap Estim Creat Clear Calc Estimated GFR Random Glucose Lactic Acid Calcium Magnesium Total Bilirubin Direct Bilirubin AST ALT Alkaline Phosphatase Ammonia 86 H Troponin I High Sens B-Natriuretic Peptide Total Protein Albumin Procalcitonin TSH Free T4 Urine Color Dark Yellow Urine Appearance Clear Urine pH 6.5 Ur Specific [place] >= 1.030 H Urine Protein 30 (1+) H Urine Glucose (UA) Negative Urine Ketones 15 Urine Blood Moderate (2+) H Urine Nitrite Negative Ur Leukocyte Esterase Small (1+) H Urine RBC 3-5 H Urine WBC 6-10 H Ur Squamous Epith Cells 3-5 Urine Bacteria Trace Hyaline Casts 0-2 Urine Opiates Screen Not Detected Urine Fentanyl Screen Not Detected Ur Barbiturates Screen Not Detected Ur Phencyclidine Scrn Not Detected Ur Amphetamines Screen Not Detected U Benzodiazepines Scrn Not Detected Urine Cocaine Screen Not Detected U Marijuana (THC) Screen POSITIVE H Ethyl Alcohol Influenza Type A (PCR) Influenza Type B (PCR) RSV RNA Qual (PCR) SARS-CoV-2 RNA (RT-PCR) 03/24/23 03/24/23 03/24/23 01:42 07:11 07:11 MCV 92.4 MCH 30.3 MCHC 32.8 RDW 11.9 Plt Count 272 MPV 9.5 Immature Gran % (Auto) 0.6 H Neut % (Auto) 73.8 H Lymph % (Auto) 14.9 L [place] % (Auto) 8.4 Eos % (Auto) 1.7 Baso % (Auto) 0.6 Lymph # (Auto) 1.6 [place] # (Auto) 0.9 Eos # (Auto) 0.2 Baso # (Auto) 0.1 Abs Immat Gran (auto) 0.06 H Absolute Neuts (auto) 7.7 Absolute Nucleated RBC 0.000 Nucleated RBC % (auto) 0.0 Smear Tech's Comments VBG pH VBG pCO2 VBG pO2 VBG HCO3 VBG O2 Saturation VBG Base Excess Anion Gap 14 Estim Creat Clear Calc 77.1 Estimated GFR > 60 Random Glucose 89 Lactic Acid Calcium 8.2 L D Magnesium Total Bilirubin Direct Bilirubin AST ALT Alkaline Phosphatase Ammonia Troponin I High Sens B-Natriuretic Peptide Total Protein Albumin Procalcitonin TSH Free T4 Urine Color Urine Appearance Urine pH Ur Specific [place] Urine Protein Urine Glucose (UA) Urine Ketones Urine Blood Urine Nitrite Ur Leukocyte Esterase Urine RBC Urine WBC Ur Squamous Epith Cells Urine Bacteria Hyaline Casts Urine Opiates Screen Urine Fentanyl Screen Ur Barbiturates Screen Ur Phencyclidine Scrn Ur Amphetamines Screen U Benzodiazepines Scrn Urine Cocaine Screen U Marijuana (THC) Screen Ethyl Alcohol Influenza Type A (PCR) NEGATIVE Influenza Type B (PCR) NEGATIVE RSV RNA Qual (PCR) NEGATIVE SARS-CoV-2 RNA (RT-PCR) NEGATIVE 03/24/23 03/24/23 07:11 10:48 MCV MCH MCHC RDW Plt Count MPV Immature Gran % (Auto) Neut % (Auto) Lymph % (Auto) [place] % (Auto) Eos % (Auto) Baso % (Auto) Lymph # (Auto) [place] # (Auto) Eos # (Auto) Baso # (Auto) Abs Immat Gran (auto) Absolute Neuts (auto) Absolute Nucleated RBC Nucleated RBC % (auto) Smear Tech's Comments VBG pH 7.52 H VBG pCO2 38 VBG pO2 153 VBG HCO3 31 H VBG O2 Saturation 100.0 VBG Base Excess 8.5 Anion Gap Estim Creat Clear Calc Estimated GFR Random Glucose Lactic Acid Calcium Magnesium Total Bilirubin Direct Bilirubin AST ALT Alkaline Phosphatase Ammonia 36 Troponin I High Sens B-Natriuretic Peptide Total Protein Albumin Procalcitonin TSH Free T4 Urine Color Urine Appearance Urine pH Ur Specific [place] Urine Protein Urine Glucose (UA) Urine Ketones Urine Blood Urine Nitrite Ur Leukocyte Esterase Urine RBC Urine WBC Ur Squamous Epith Cells Urine Bacteria Hyaline Casts Urine Opiates Screen Urine Fentanyl Screen Ur Barbiturates Screen Ur Phencyclidine Scrn Ur Amphetamines Screen U Benzodiazepines Scrn Urine Cocaine Screen U Marijuana (THC) Screen Ethyl Alcohol Influenza Type A (PCR) Influenza Type B (PCR) RSV RNA Qual (PCR) SARS-CoV-2 RNA (RT-PCR) Microbiology Microbiology Results: Microbiology 03/23/23 Unknown Urine Culture - Preliminary Urine clean catch - Urine kauffman top Assessment and Plan (1) Dizziness: Status: Acute Plan Pt is a 63-year-old female with a PMH significant for?chronic hypoxic respiratory failure on 2L [place], COPD, hypertrophic cardiomyopathy, GERD, HTN, HLD, hypothyroidism, and seasonal allergies who presents from home via EMS to the ED with?generalized weakness, confusion, and dizziness. Patient will be admitted to observation on telemetry for continued evaluation and treatment of presyncope and altered mental status. Dizziness with movement/standing - orthostatic vitals negative, brain CT negative for acute pathology persistent dizziness, feeling off balance seen by PT/OT -rec STR neurology consult pending Elevated ammonia level abdominal US liver - normal size & contour LFTs wnl ammonia 86 on arrival, improved to 36 after a dose of lactulose still seems to be confused despite improvement in level, unclear significance Acute toxic metabolic encephalopathy possible UTI ammonia elevated on admission but no change in mental status with improvement in ammonia level brain CT negative, no focal deficits neuro consult pending Acute COPD exacerbation with possible pneumonia on a background on chronic respiratory failure on 3L supplemental oxygen at baseline CT of chest showed chronic bronchial wall thickening and left perihilar density extending into the left upper lobe, worse than prior CT on 07/28/2022 seen by Pulmonology - rec breathing treatments, solu-medrol and IV ceftriaxone for at least 5 days N/V likely viral gastroenteritis resolved Hyponatremia Patient's sodium 131 at time of presentation resolved with IVF GERD Continue pantoprazole HLD Continue statin Hypothyroidism TSH 0.21, free t4 1.79 -->subclinical hyperthyroidism will decrease dose of levothyroxine repeat labs outpatient Depression Continue sertraline Full Code Attending:?Dr. Whitney DVT Prophylaxis: Lovenox Patient requires ongoing hospitalization for evaluation and treatment of dizziness and encephalopathy Time Spent With Patient Time: Total time managing care of this patient today ____ minutes. Quality Stroke Does the patient have a stroke diagnosis?: No VTE Prior VTE?: No VTE Risk Level:: Medical - moderate - high VTE Device Contraindication: Treatment Not Indicated VTE Drug Contraindication: N/A - Med Ordered
[2023-03-24] MEDS: cefTRIAXone sodium 1 GM in 0.9 % Sodium Chloride 50 ML IV (13:38)
[2023-03-24] MEDS: 0.9 % Sodium Chloride 1,000 ML 80 ML IVCONT (14:39)
[2023-03-24 15:51] LABS: Folate 7.4 ng/mL (> or = 4.0); Vitamin B12 451 pg/mL (200-900)
[2023-03-24] MEDS: Fluticasone Propionate Nasal 16 GM SPRAY 1 SPRAY NOSTRIL-B (22:04)
[2023-03-24] MEDS: Atorvastatin Calcium 20 MG TABLET PO (22:04)
[2023-03-24] MEDS: Enoxaparin Sodium 40 MG/0.4 ML SYRINGE SUBCUT (22:04)
[2023-03-25] VITALS (10 sets, daily range): BP systolic 112–136; BP diastolic 56–73; PULSE 65–98; RESP 18–20; TEMP 36.1–37.2; O2SAT 91–98
[2023-03-25] MEDS: methylPREDNISolone Sod Succ 40 MG/ML VIAL IVPUSH ×3 (02:35→18:10)
[2023-03-25] MEDS: 0.9 % Sodium Chloride Flush 3 ML SYRINGE IVFLUSH ×2 (02:36→13:35)
--- NOTE | 2023-03-25 05:22 | PC.NURSE ---
RECEIVED REPORT [id number] FOR CARE OF THIS PT, RESTING QUIETLY IN BED, VSS, BED ALARM AND TELESITTER IN USE FOR SAFETY. NO S/SX RESP DISTRESS OR PAIN, NO STATED DIZZINESS WHILE IN BED, WILL CONTINUE TO MONITOR CLOSELY
[2023-03-25] MEDS: Levothyroxine Sodium 75 MCG TABLET PO (06:22)
[2023-03-25] MEDS: Omeprazole 20 MG CAPSULE.DR PO (06:22)
[2023-03-25] MEDS: Sertraline HCL 50 MG TABLET PO (07:47)
[2023-03-25] MEDS: Fluticasone Propionate Nasal 16 GM SPRAY 1 SPRAY NOSTRIL-B ×2 (07:47→22:05)
[2023-03-25] MEDS: Albuterol/Iprat 2.5/0.5MG 3 ML AMPUL.NEB INHALE ×3 (08:22→20:33)
[2023-03-25] MEDS: Fluticasone/Vilanterol 200/25 BLST.W.DEV 1 PUFF INHALE (08:27)
--- NOTE | 2023-03-25 10:15 | P.PNIM_ITS ---
Subjective Subjective Date of Service: 03/25/23 Interval History: seen and examined this morning follow up for dizziness, AMS pt awake and alert, a little vague, reports dizziness primarily with standing diarrhea resolved, no abdominal pain denies sob, cough Review of Systems Review of Systems: Yes all other systems are reviewed and are negative Constitutional Constitutional: Denies chills and Denies fever(s) ENT Ears, Nose, Mouth, and Throat: Reports dizziness Cardiovascular Cardiovascular: Denies chest pain, Denies palpitations and Denies dyspnea Respiratory Respiratory: Denies cough and Denies dyspnea Gastrointestinal Gastrointestinal: Denies abdominal pain, Denies diarrhea, Denies nausea and Denies vomiting Neurologic Neurologic: Reports dizziness Endocrine Endocrine: Denies palpitations Physical Exam Vital Signs: Vital Signs: Last Vital Signs Temp 97.5 F 03/25/23 07:07 Pulse 79 03/25/23 08:24 Resp 18 03/25/23 08:24 BP 118/65 03/25/23 07:07 Pulse Ox 96 03/25/23 07:07 O2 Del Method Nasal Cannula 03/25/23 07:07 O2 Flow Rate 2 03/25/23 07:07 Oxygen Flow Rate 2 03/23/23 12:10 BMI result Body Mass Index 25.4 Appearing in no acute distress lung sounds are clear to auscultation heart regular rate rhythm, clear S1, S2 positive bowel sounds, abdomen is soft, nontender neuro patient is alert x3, no focal deficits Objective Data Active Medications Acetaminophen (Acetaminophen 325 Mg Tablet) 650 mg PO Q6H PRN PRN Reason: Pain, Mild (Pain Scale 1-3) Last Admin: 03/24/23 12:01 Dose: 650 mg Documented By: JACK Albuterol/Ipratropium (Albuterol/Iprat 2.5/0.5mg 3 Ml Ampul.Neb) 3 ml INHALE RQ4H WHILE AWAKE [facility] Last Admin: 03/25/23 08:22 Dose: 3 ml Documented By: REINALDO Albuterol/Ipratropium (Albuterol/Iprat 2.5/0.5mg 3 Ml Ampul.Neb) 3 ml INHALE RQ4H PRN PRN Reason: Wheezing Last Admin: 03/24/23 19:01 Dose: 3 ml Documented By: RADHA Atorvastatin Calcium (Atorvastatin Calcium 20 Mg Tablet) 20 mg PO BEDTIME [facility] Last Admin: 03/24/23 22:04 Dose: 20 mg Documented By: BEV Enoxaparin Sodium (Enoxaparin Sodium 40 Mg/0.4 Ml Syringe) 40 mg SUBCUT Q24H [facility] Last Admin: 03/24/23 22:04 Dose: 40 mg Documented By: BEV Fluticasone Propionate (Fluticasone Propionate Nasal 16 Gm [place]) 1 spray NOSTRIL-B BID [facility] Last Admin: 03/25/23 07:47 Dose: 1 spray Documented By: JACKY Fluticasone/Vilanterol (Fluticasone/Vilanterol 200/25 Blst.W.Dev) 1 puff INHALE RDAILY [facility] Last Admin: 03/25/23 08:27 Dose: 1 puff Documented By: REINALDO Ceftriaxone Sodium 1 gm/ (Sodium Chloride) 50 mls @ 100 mls/hr IV Q24H [facility] Last Infusion: 03/24/23 14:09 Dose: 0 mls/hr Documented By: JACK Levothyroxine Sodium (Levothyroxine Sodium 75 Mcg Tablet) 75 mcg PO DAILY@0600 [facility] Last Admin: 03/25/23 06:22 Dose: 75 mcg Documented By: LUIGI Melatonin (Melatonin 3 Mg Tablet) 6 mg PO BEDTIME PRN PRN Reason: Insomnia Methylprednisolone Sodium Succinate (Methylprednisolone Sod Succ 40 Mg/Ml Vial) 40 mg IVPUSH Q8H [facility] Last Admin: 03/25/23 02:35 Dose: 40 mg Documented By: LUIGI Omeprazole (Omeprazole 20 Mg Tim.) 20 mg PO DAILY@0630 [facility] Last Admin: 03/25/23 06:22 Dose: 20 mg Documented By: LUIGI Ondansetron HCl (Ondansetron Hcl 4 Mg/2 Ml Vial) 4 mg IVPUSH Q8H PRN PRN Reason: Nausea and Vomiting Pharmacy Consult (Consult Rx Perform Med Rec) 1 each MISCELLANE ONCE PRN PRN Reason: Consult order Sertraline HCl (Sertraline Hcl 50 Mg Tablet) 50 mg PO DAILY [facility] Last Admin: 03/25/23 07:47 Dose: 50 mg Documented By: JACKY Sodium Chloride (0.9 % Sodium Chloride Flush 3 Ml Syringe) 3 ml IVFLUSH QSHIFT [facility] Last Admin: 03/25/23 07:47 Dose: Not Given Documented By: JACKY Non-Admin Reason: IV Running Labs 03/24/23 07:11 03/24/23 07:11 Labs: Laboratory Results - last 24 hr 03/24/23 03/24/23 07:11 10:48 VBG pH 7.52 H VBG pCO2 38 VBG pO2 153 VBG HCO3 31 H VBG O2 Saturation 100.0 VBG Base Excess 8.5 Vitamin B12 451 Folate 7.4 Microbiology Microbiology Results: Microbiology 03/23/23 14:33 Blood Culture - Preliminary Blood - Venous No growth after 24 hours. 03/23/23 14:14 Blood Culture - Preliminary Blood - Venous No growth after 24 hours. 03/23/23 Unknown Urine Culture - Preliminary Urine clean catch - Urine kauffman top Assessment and Plan (1) Dizziness: Status: Acute Plan Pt is a 63-year-old female with a PMH significant for?chronic hypoxic respiratory failure on 2L [place], COPD, hypertrophic cardiomyopathy, GERD, HTN, HLD, hypothyroidism, and seasonal allergies who presents from home via EMS to the ED with?generalized weakness, confusion, and dizziness. Patient will be admitted to observation on telemetry for continued evaluation and treatment of presyncope and altered mental status. Dizziness with movement/standing - orthostatic vitals negative, brain CT negative for acute pathology persistent dizziness, feeling off balance seen by PT/OT -rec STR neurology consult pending Elevated ammonia level abdominal US liver - normal size & contour LFTs wnl ammonia 86 on arrival, improved to 36 after a dose of lactulose still seems to be confused despite improvement in level, unclear significance Acute toxic metabolic encephalopathy possible UTI ammonia elevated on admission but no change in mental status with improvement in ammonia level brain CT negative, no focal deficits neuro consult pending Acute COPD exacerbation with possible pneumonia on a background on chronic respiratory failure on 3L supplemental oxygen at baseline CT of chest showed chronic bronchial wall thickening and left perihilar density extending into the left upper lobe, worse than prior CT on 07/28/2022 seen by Pulmonology - rec breathing treatments, solu-medrol 1-2 days the prednisone 40 mg for 5 days rocephin for 5 days N/V likely viral gastroenteritis resolved Hyponatremia Patient's sodium 131 at time of presentation resolved with IVF GERD Continue pantoprazole HLD Continue statin Hypothyroidism TSH 0.21, free t4 1.79 -->subclinical hyperthyroidism will decrease dose of levothyroxine repeat labs outpatient Depression Continue sertraline Full Code Attending:?Dr. Sandoval DVT Prophylaxis: Lovenox Patient requires ongoing hospitalization for evaluation and treatment of dizziness and encephalopathy Time Spent With Patient Time: Total time managing care of this patient today ____ minutes. Quality Stroke Does the patient have a stroke diagnosis?: No VTE Prior VTE?: No VTE Risk Level:: Medical - moderate - high VTE Device Contraindication: Treatment Not Indicated VTE Drug Contraindication: N/A - Med Ordered
[2023-03-25] MEDS: cefTRIAXone sodium 1 GM in 0.9 % Sodium Chloride 50 ML IV (12:53)
--- NOTE | 2023-03-25 19:44 | PC.NURSE ---
patient is alert to person and place, disoriented to time and situation . Patient's family ,HCP is concern that neurology didn't evealuate patient yet . Neuro consult was ordered yesterday . community youth secretary recalled the neurology office regarding the consultation .
--- NOTE | 2023-03-25 20:36 | PC.NURSE ---
Opal Daniel daughter [phone]
--- NOTE | 2023-03-25 21:19 | PC.NURSE ---
Dr Martinez neurologist called back to med /tele and stated that he spke with DR Maldonado hospitalist also stated that he called pt's daughter Opal . The paln is to do MRI of the brain without to r/o stroke urgent tomorrow. DR Martinez stated also that family is requesting pt to be transferred to the other hospital if the MRI nat't be done tomorrow. DR Martinez stated he agreed if the MRI can't be done tomorrow. Hospitalist DR Maldonado and nursing supervisor money room Marilu was notified
[2023-03-25] MEDS: Atorvastatin Calcium 20 MG TABLET PO (22:05)
[2023-03-25] MEDS: Enoxaparin Sodium 40 MG/0.4 ML SYRINGE SUBCUT (22:05)
[2023-03-26] VITALS (8 sets, daily range): BP systolic 122–148; BP diastolic 59–83; PULSE 79–91; RESP 15–22; TEMP 36.4–37; O2SAT 94–98
[2023-03-26] MEDS: 0.9 % Sodium Chloride Flush 3 ML SYRINGE IVFLUSH ×4 (00:12→21:32)
[2023-03-26] MEDS: methylPREDNISolone Sod Succ 40 MG/ML VIAL IVPUSH ×3 (03:31→18:46)
[2023-03-26] MEDS: Levothyroxine Sodium 75 MCG TABLET PO (05:45)
[2023-03-26] MEDS: Omeprazole 20 MG CAPSULE.DR PO (05:45)
[2023-03-26] MEDS: Fluticasone/Vilanterol 200/25 BLST.W.DEV 1 PUFF INHALE (07:55)
[2023-03-26] MEDS: Albuterol/Iprat 2.5/0.5MG 3 ML AMPUL.NEB INHALE ×2 (07:55→16:06)
[2023-03-26] MEDS: ondansetron HCL 4 MG/2 ML VIAL IVPUSH (08:54)
[2023-03-26 09:12] LABS: Hemoglobin 11.9 g/dl (12.0-16.0); Mean Corpuscular HGB Conc 33.1 g/dl (31.0-35.0); Mean Corpuscular Hemoglobin 30.4 pg (27.0-33.0); Mean Corpuscular Volume 91.8 fL (80.0-98.0); Mean Platelet Volume 9.2 fL (9.4-12.3); Platelet Count 385 X10*3/uL (160-400); Red Blood Count 3.92 X10*6/uL (4.20-5.50); Red Cell Distribution Width 12.1 % (11.0-16.0); White Blood Count 10.8 X10*3/uL (4.8-10.8)
[2023-03-26 09:30] LABS: Anion Gap 12 (12-20); Blood Urea Nitrogen 8 mg/dL (9-16); Calcium 9.4 mg/dL (8.4-10.2); Carbon Dioxide 30 mmol/L (22-29); Chloride 101 mmol/L (96-108); Creatinine Clr Calc Pharmacy 77.1; Estimated Glomerular Filt Rate > 60; Glucose Random 126 mg/dL (60-115); Magnesium 2.2 mg/dL (1.6-2.6); Sodium 139 mmol/L (135-145)
[2023-03-26] MEDS: Fluticasone Propionate Nasal 16 GM SPRAY 1 SPRAY NOSTRIL-B ×2 (09:31→21:27)
[2023-03-26] MEDS: Sertraline HCL 50 MG TABLET PO (09:31)
--- NOTE | 2023-03-26 10:08 | HO.PM.IMPN ---
Subjective Subjective Date of Service: 03/26/23 Interval History: seen and examined this morning follow up for dizziness, AMS pt awake and alert, a little vague, reports dizziness primarily with standing diarrhea resolved, no abdominal pain denies sob, cough Review of Systems Review of Systems: Yes all other systems are reviewed and are negative Constitutional Constitutional: Denies chills and Denies fever(s) ENT Ears, Nose, Mouth, and Throat: Reports dizziness Cardiovascular Cardiovascular: Denies chest pain, Denies palpitations and Denies dyspnea Respiratory Respiratory: Denies cough and Denies dyspnea Gastrointestinal Gastrointestinal: Denies abdominal pain, Denies diarrhea, Denies nausea and Denies vomiting Neurologic Neurologic: Reports dizziness Endocrine Endocrine: Denies palpitations Physical Exam Vital Signs: Vital Signs: Last Vital Signs Temp 98.3 F 03/26/23 07:09 Pulse 82 03/26/23 07:57 Resp 20 03/26/23 07:57 BP 148/83 H 03/26/23 07:09 Pulse Ox 94 03/26/23 07:09 O2 Del Method Nasal Cannula 03/26/23 07:09 O2 Flow Rate 2 03/26/23 07:09 Oxygen Flow Rate 2 03/23/23 12:10 BMI result Body Mass Index 25.4 Appearing in no acute distress lung sounds are clear to auscultation heart regular rate rhythm, clear S1, S2 positive bowel sounds, abdomen is soft, nontender neuro patient is alert x3, no focal deficits Objective Data Active Medications Acetaminophen (Acetaminophen 325 Mg Tablet) 650 mg PO Q6H PRN PRN Reason: Pain, Mild (Pain Scale 1-3) Last Admin: 03/24/23 12:01 Dose: 650 mg Documented By: JACK Albuterol/Ipratropium (Albuterol/Iprat 2.5/0.5mg 3 Ml Ampul.Neb) 3 ml INHALE RQ4H WHILE AWAKE [facility] Last Admin: 03/26/23 07:55 Dose: 3 ml Documented By: REINALDO Albuterol/Ipratropium (Albuterol/Iprat 2.5/0.5mg 3 Ml Ampul.Neb) 3 ml INHALE RQ4H PRN PRN Reason: Wheezing Last Admin: 03/24/23 19:01 Dose: 3 ml Documented By: RADHA Atorvastatin Calcium (Atorvastatin Calcium 20 Mg Tablet) 20 mg PO BEDTIME [facility] Last Admin: 03/25/23 22:05 Dose: 20 mg Documented By: MIKO Enoxaparin Sodium (Enoxaparin Sodium 40 Mg/0.4 Ml Syringe) 40 mg SUBCUT Q24H [facility] Last Admin: 03/25/23 22:05 Dose: 40 mg Documented By: MIKO Fluticasone Propionate (Fluticasone Propionate Nasal 16 Gm [place]) 1 spray NOSTRIL-B BID [facility] Last Admin: 03/26/23 09:31 Dose: 1 spray Documented By: JACKY Fluticasone/Vilanterol (Fluticasone/Vilanterol 200/25 Blst.W.Dev) 1 puff INHALE RDAILY [facility] Last Admin: 03/26/23 07:55 Dose: 1 puff Documented By: REINALDO Ceftriaxone Sodium 1 gm/ (Sodium Chloride) 50 mls @ 100 mls/hr IV Q24H [facility] Last Infusion: 03/25/23 13:30 Dose: 0 mls/hr Documented By: JACKY Levothyroxine Sodium (Levothyroxine Sodium 75 Mcg Tablet) 75 mcg PO DAILY@0600 [facility] Last Admin: 03/26/23 05:45 Dose: 75 mcg Documented By: KIKI Melatonin (Melatonin 3 Mg Tablet) 6 mg PO BEDTIME PRN PRN Reason: Insomnia Methylprednisolone Sodium Succinate (Methylprednisolone Sod Succ 40 Mg/Ml Vial) 40 mg IVPUSH Q8H [facility] Last Admin: 03/26/23 03:31 Dose: 40 mg Documented By: KIKI Omeprazole (Omeprazole 20 Mg Capsule.) 20 mg PO DAILY@0630 [facility] Last Admin: 03/26/23 05:45 Dose: 20 mg Documented By: KIKI Ondansetron HCl (Ondansetron Hcl 4 Mg/2 Ml Vial) 4 mg IVPUSH Q8H PRN PRN Reason: Nausea and Vomiting Last Admin: 03/26/23 08:54 Dose: 4 mg Documented By: JACKY Pharmacy Consult (Consult Rx Perform Med Rec) 1 each MISCELLANE ONCE PRN PRN Reason: Consult order Sertraline HCl (Sertraline Hcl 50 Mg Tablet) 50 mg PO DAILY [facility] Last Admin: 03/26/23 09:31 Dose: 50 mg Documented By: JACKY Sodium Chloride (0.9 % Sodium Chloride Flush 3 Ml Syringe) 3 ml IVFLUSH QSHIFT [facility] Last Admin: 03/26/23 08:57 Dose: 3 ml Documented By: JACKY Labs 03/26/23 09:05 03/26/23 09:05 Labs: Laboratory Results - last 24 hr 03/26/23 03/26/23 09:05 09:05 MCV 91.8 MCH 30.4 MCHC 33.1 RDW 12.1 Plt Count 385 D MPV 9.2 L Absolute Nucleated RBC 0.000 Nucleated RBC % (auto) 0.0 Anion Gap 12 Estim Creat Clear Calc 77.1 Estimated GFR > 60 Random Glucose 126 H Calcium 9.4 D Magnesium 2.2 Microbiology Microbiology Results: Microbiology 03/23/23 14:33 Blood Culture - Preliminary Blood - Venous No growth after 48 hours. 03/23/23 14:14 Blood Culture - Preliminary Blood - Venous No growth after 48 hours. 03/23/23 Unknown Urine Culture - Final Urine clean catch - Urine kauffman top Assessment and Plan (1) Dizziness: Status: Acute Plan Pt is a 63-year-old female with a PMH significant for?chronic hypoxic respiratory failure on 2L [place], COPD, hypertrophic cardiomyopathy, GERD, HTN, HLD, hypothyroidism, and seasonal allergies who presents from home via EMS to the ED with?generalized weakness, confusion, and dizziness. Patient will be admitted to observation on telemetry for continued evaluation and treatment of presyncope and altered mental status. Dizziness with movement/standing - orthostatic vitals negative, brain CT negative for acute pathology persistent dizziness, feeling off balance seen by PT/OT -rec STR neurology consult MRI neg for acute or subacute stroke, showing chronic lacunar infarct ? symptoms r/t seizure activity. EEG pending Elevated ammonia level. Resolved possibly related to dehydration abdominal US liver - normal size & contour LFTs wnl ammonia 86 on arrival, improved to 36 after a dose of lactulose still seems to be confused despite improvement in level, unclear significance Acute toxic metabolic encephalopathy possible UTI ammonia elevated on admission but no change in mental status with improvement in ammonia level brain CT negative, no focal deficits neuro consult>MRI Acute COPD exacerbation with possible pneumonia on a background on chronic respiratory failure on 3L supplemental oxygen at baseline CT of chest showed chronic bronchial wall thickening and left perihilar density extending into the left upper lobe, worse than prior CT on 07/28/2022 seen by Pulmonology - rec breathing treatments, solu-medrol 1-2 days the prednisone 40 mg for 5 days rocephin for 5 days N/V likely viral gastroenteritis Hyponatremia Patient's sodium 131 at time of presentation resolved with IVF GERD Continue pantoprazole HLD Continue statin Hypothyroidism TSH 0.21, free t4 1.79 -->subclinical hyperthyroidism will decrease dose of levothyroxine repeat labs outpatient Depression Continue sertraline Full Code Attending:?Dr. Sandoval DVT Prophylaxis: Lovenox Patient requires ongoing hospitalization for evaluation and treatment of dizziness and encephalopathy Time Spent With Patient Time: Total time managing care of this patient today ____ minutes. Quality Stroke Does the patient have a stroke diagnosis?: No VTE Prior VTE?: No VTE Risk Level:: Medical - moderate - high VTE Device Contraindication: Treatment Not Indicated VTE Drug Contraindication: N/A - Med Ordered
[2023-03-26] MEDS: hydrOXYzine HCL 10 MG TABLET PO (10:31)
[2023-03-26] MEDS: cefTRIAXone sodium 1 GM in 0.9 % Sodium Chloride 50 ML IV (13:08)
[2023-03-26] MEDS: Dextrose 5 % and 0.9 % NaCl 1,000 ML 100 ML IVCONT (15:21)
[2023-03-26] MEDS: Atorvastatin Calcium 20 MG TABLET PO (21:27)
[2023-03-26] MEDS: Enoxaparin Sodium 40 MG/0.4 ML SYRINGE SUBCUT (23:12)
[2023-03-27] VITALS (7 sets, daily range): BP systolic 117–140; BP diastolic 58–80; PULSE 71–97; RESP 15–20; TEMP 36.3–37.1; O2SAT 86–97
[2023-03-27] MEDS: methylPREDNISolone Sod Succ 40 MG/ML VIAL IVPUSH ×3 (03:50→20:08)
[2023-03-27] MEDS: Dextrose 5 % and 0.9 % NaCl 1,000 ML 100 ML IVCONT ×3 (04:48→20:02)
[2023-03-27] MEDS: Levothyroxine Sodium 75 MCG TABLET PO (05:58)
[2023-03-27] MEDS: Omeprazole 20 MG CAPSULE.DR PO (05:58)
[2023-03-27 06:35] LABS: Hematocrit 35.8 % (37.0-47.0); Hemoglobin 11.9 g/dl (12.0-16.0); Mean Corpuscular HGB Conc 33.2 g/dl (31.0-35.0); Mean Corpuscular Hemoglobin 31.1 pg (27.0-33.0); Mean Corpuscular Volume 93.5 fL (80.0-98.0); Mean Platelet Volume 9.2 fL (9.4-12.3); Platelet Count 411 X10*3/uL (160-400); Red Blood Count 3.83 X10*6/uL (4.20-5.50); Red Cell Distribution Width 12.2 % (11.0-16.0); White Blood Count 10.5 X10*3/uL (4.8-10.8)
[2023-03-27 06:59] LABS: Anion Gap 8 (12-20); Blood Urea Nitrogen 9 mg/dL (9-16); Calcium 9.3 mg/dL (8.4-10.2); Carbon Dioxide 32 mmol/L (22-29); Chloride 102 mmol/L (96-108); Creatinine Clr Calc Pharmacy 82.6; Estimated Glomerular Filt Rate > 60; Glucose Random 113 mg/dL (60-115); Potassium 4.2 mmol/L (3.3-5.1); Sodium 138 mmol/L (135-145)
[2023-03-27 07:04] LABS: Magnesium 2.3 mg/dL (1.6-2.6)
[2023-03-27 07:36] LABS: Glucose, Whole Blood 126 mg/dL (60-115)
[2023-03-27] MEDS: Albuterol/Iprat 2.5/0.5MG 3 ML AMPUL.NEB INHALE (08:10)
[2023-03-27] MEDS: Fluticasone/Vilanterol 200/25 BLST.W.DEV 1 PUFF INHALE (08:10)
[2023-03-27] MEDS: Sertraline HCL 50 MG TABLET PO (08:37)
[2023-03-27] MEDS: 0.9 % Sodium Chloride Flush 3 ML SYRINGE IVFLUSH (08:38)
--- NOTE | 2023-03-27 09:43 | P.PNIM_ITS ---
Subjective Subjective Date of Service: 03/27/23 Interval History: seen and examined this morning follow up for dizziness, AMS diarrhea resolved, no abdominal pain denies sob, cough Review of Systems Review of Systems: Yes all other systems are reviewed and are negative Constitutional Constitutional: Denies chills and Denies fever(s) ENT Ears, Nose, Mouth, and Throat: Reports dizziness Cardiovascular Cardiovascular: Denies chest pain, Denies palpitations and Denies dyspnea Respiratory Respiratory: Denies cough and Denies dyspnea Gastrointestinal Gastrointestinal: Denies abdominal pain, Denies diarrhea, Denies nausea and Denies vomiting Neurologic Neurologic: Reports dizziness Endocrine Endocrine: Denies palpitations Physical Exam Vital Signs: Vital Signs: Last Vital Signs Temp 98.5 F 03/27/23 07:54 Pulse 97 03/27/23 08:11 Resp 16 03/27/23 08:11 BP 132/80 03/27/23 07:54 Pulse Ox 97 03/27/23 07:54 O2 Del Method Nasal Cannula 03/27/23 07:54 O2 Flow Rate 2 03/27/23 07:54 Oxygen Flow Rate 2 03/23/23 12:10 BMI result Body Mass Index 25.4 Appearing in no acute distress lung sounds are clear to auscultation heart regular rate rhythm, clear S1, S2 positive bowel sounds, abdomen is soft, nontender neuro patient is alert x3, no focal deficits Objective Data Active Medications Acetaminophen (Acetaminophen 325 Mg Tablet) 650 mg PO Q6H PRN PRN Reason: Pain, Mild (Pain Scale 1-3) Last Admin: 03/24/23 12:01 Dose: 650 mg Documented By: JACK Albuterol/Ipratropium (Albuterol/Iprat 2.5/0.5mg 3 Ml Ampul.Neb) 3 ml INHALE RQ4H WHILE AWAKE [facility] Last Admin: 03/27/23 08:10 Dose: 3 ml Documented By: ERNST Albuterol/Ipratropium (Albuterol/Iprat 2.5/0.5mg 3 Ml Ampul.Neb) 3 ml INHALE RQ4H PRN PRN Reason: Wheezing Last Admin: 03/24/23 19:01 Dose: 3 ml Documented By: RADHA Atorvastatin Calcium (Atorvastatin Calcium 20 Mg Tablet) 20 mg PO BEDTIME [facility] Last Admin: 03/26/23 21:27 Dose: 20 mg Documented By: SCOTT Enoxaparin Sodium (Enoxaparin Sodium 40 Mg/0.4 Ml Syringe) 40 mg SUBCUT Q24H [facility] Last Admin: 03/26/23 23:12 Dose: 40 mg Documented By: SCOTT Fluticasone Propionate (Fluticasone Propionate Nasal 16 Gm [place]) 1 spray NOSTRIL-B BID [facility] Last Admin: 03/26/23 21:27 Dose: 1 spray Documented By: SCOTT Fluticasone/Vilanterol (Fluticasone/Vilanterol 200/25 Blst.W.Dev) 1 puff INHALE RDAILY [facility] Last Admin: 03/27/23 08:10 Dose: 1 puff Documented By: ERNST Ceftriaxone Sodium 1 gm/ (Sodium Chloride) 50 mls @ 100 mls/hr IV Q24H [facility] Last Infusion: 03/26/23 13:38 Dose: 0 mls/hr Documented By: JACKY Dextrose/Sodium Chloride (D5ns) 1,000 mls @ 100 mls/hr IVCONT .Q10H [facility] Last Admin: 03/27/23 08:37 Dose: 100 mls/hr Documented By: RICHY Levothyroxine Sodium (Levothyroxine Sodium 75 Mcg Tablet) 75 mcg PO DAILY@0600 [facility] Last Admin: 03/27/23 05:58 Dose: 75 mcg Documented By: SCOTT Melatonin (Melatonin 3 Mg Tablet) 6 mg PO BEDTIME PRN PRN Reason: Insomnia Methylprednisolone Sodium Succinate (Methylprednisolone Sod Succ 40 Mg/Ml Vial) 40 mg IVPUSH Q8H [facility] Last Admin: 03/27/23 03:50 Dose: 40 mg Documented By: SCOTT Omeprazole (Omeprazole 20 Mg Capsule.) 20 mg PO DAILY@0630 [facility] Last Admin: 03/27/23 05:58 Dose: 20 mg Documented By: SCOTT Ondansetron HCl (Ondansetron Hcl 4 Mg/2 Ml Vial) 4 mg IVPUSH Q8H PRN PRN Reason: Nausea and Vomiting Last Admin: 03/26/23 08:54 Dose: 4 mg Documented By: JACKY Pharmacy Consult (Consult Rx Perform Med Rec) 1 each MISCELLANE ONCE PRN PRN Reason: Consult order Sertraline HCl (Sertraline Hcl 50 Mg Tablet) 50 mg PO DAILY [facility] Last Admin: 03/27/23 08:37 Dose: 50 mg Documented By: RICHY Sodium Chloride (0.9 % Sodium Chloride Flush 3 Ml Syringe) 3 ml IVFLUSH QSHIFT [facility] Last Admin: 03/27/23 08:38 Dose: 3 ml Documented By: RICHY Labs 03/27/23 06:14 03/27/23 06:14 Labs: Laboratory Results - last 24 hr 03/27/23 03/27/23 03/27/23 06:14 06:14 06:14 MCV 93.5 MCH 31.1 MCHC 33.2 RDW 12.2 Plt Count 411 H MPV 9.2 L Absolute Nucleated RBC 0.000 Nucleated RBC % (auto) 0.0 Anion Gap 8 L Estim Creat Clear Calc 82.6 Estimated GFR > 60 POC Glucose Random Glucose 113 Calcium 9.3 Magnesium 2.3 03/27/23 07:19 MCV MCH MCHC RDW Plt Count MPV Absolute Nucleated RBC Nucleated RBC % (auto) Anion Gap Estim Creat Clear Calc Estimated GFR POC Glucose 126 H Random Glucose Calcium Magnesium Assessment and Plan (1) Dizziness: Status: Acute Plan Pt is a 63-year-old female with a PMH significant for?chronic hypoxic respiratory failure on 2L [place], COPD, hypertrophic cardiomyopathy, GERD, HTN, HLD, hypothyroidism, and seasonal allergies who presents from home via EMS to the ED with?generalized weakness, confusion, and dizziness. Patient will be admitted to observation on telemetry for continued evaluation and treatment of presyncope and altered mental status. Dizziness with movement/standing - orthostatic vitals negative, brain CT negative for acut e pathology persistent dizziness, feeling off balance seen by PT/OT -rec STR neurology consult MRI neg for acute or subacute stroke, showing chronic lacunar infarct ? symptoms r/t seizure activity. EEG pending if EEG neg consider psych eval for dementia evaluation Elevated ammonia level. Resolved possibly related to dehydration abdominal US liver - normal size & contour LFTs wnl ammonia 86 on arrival, improved to 36 after a dose of lactulose still seems to be confused despite improvement in level, unclear significance Acute toxic metabolic encephalopathy possible UTI ammonia elevated on admission but no change in mental status with improvement in ammonia level brain CT negative, no focal deficits neuro consult>MRI Acute COPD exacerbation with possible pneumonia on a background on chronic respiratory failure on 3L supplemental oxygen at baseline CT of chest showed chronic bronchial wall thickening and left perihilar density extending into the left upper lobe, worse than prior CT on 07/28/2022 seen by Pulmonology - rec breathing treatments, solu-medrol 1-2 days the prednisone 40 mg for 5 days rocephin for 5 days N/V likely viral gastroenteritis Hyponatremia Patient's sodium 131 at time of presentation resolved with IVF GERD Continue pantoprazole HLD Continue statin Hypothyroidism TSH 0.21, free t4 1.79 -->subclinical hyperthyroidism will decrease dose of levothyroxine repeat labs outpatient Depression Continue sertraline Full Code Attending:?Dr. Wihtney DVT Prophylaxis: Lovenox Patient requires ongoing hospitalization for evaluation and treatment of dizziness and encephalopathy Time Spent With Patient Time: Total time managing care of this patient today ____ minutes. Quality Stroke Does the patient have a stroke diagnosis?: No VTE Prior VTE?: No VTE Risk Level:: Medical - moderate - high VTE Device Contraindication: Treatment Not Indicated VTE Drug Contraindication: N/A - Med Ordered
[2023-03-27] MEDS: cefTRIAXone sodium 1 GM in 0.9 % Sodium Chloride 50 ML IV (13:50)
[2023-03-27] MEDS: Melatonin 3 MG TABLET 6 MG PO (20:08)
[2023-03-27] MEDS: Magnesium Hydrox/Alum Hydrox 30 ML ORAL.SUSP PO (20:08)
[2023-03-27] MEDS: Atorvastatin Calcium 20 MG TABLET PO (20:08)
[2023-03-27] MEDS: ondansetron HCL 4 MG/2 ML VIAL IVPUSH (20:17)
[2023-03-28] VITALS (9 sets, daily range): BP systolic 122–150; BP diastolic 59–78; PULSE 70–92; RESP 16–20; TEMP 36.3–37; O2SAT 96–100
[2023-03-28] MEDS: methylPREDNISolone Sod Succ 40 MG/ML VIAL IVPUSH ×2 (03:30→09:51)
[2023-03-28] MEDS: Dextrose 5 % and 0.9 % NaCl 1,000 ML 100 ML IVCONT ×3 (05:49→23:52)
[2023-03-28] MEDS: Omeprazole 20 MG CAPSULE.DR PO (05:51)
[2023-03-28] MEDS: Levothyroxine Sodium 75 MCG TABLET PO (05:51)
[2023-03-28] MEDS: Fluticasone/Vilanterol 200/25 BLST.W.DEV 1 PUFF INHALE (08:11)
[2023-03-28] MEDS: Albuterol/Iprat 2.5/0.5MG 3 ML AMPUL.NEB INHALE ×3 (08:11→19:33)
[2023-03-28] MEDS: Sertraline HCL 50 MG TABLET PO (09:50)
[2023-03-28] MEDS: 0.9 % Sodium Chloride Flush 3 ML SYRINGE IVFLUSH ×3 (09:51→23:58)
[2023-03-28] MEDS: Fluticasone Propionate Nasal 16 GM SPRAY 1 SPRAY NOSTRIL-B ×2 (09:51→20:26)
--- NOTE | 2023-03-28 10:48 | HO.PM.IMPN ---
Subjective Subjective Date of Service: 03/28/23 Interval History: seen and examined this morning AMS, clonus, shaking diarrhea resolved, no abdominal pain denies sob, cough Review of Systems Review of Systems: Yes all other systems are reviewed and are negative Constitutional Constitutional: Denies chills and Denies fever(s) ENT Ears, Nose, Mouth, and Throat: Reports dizziness Cardiovascular Cardiovascular: Denies chest pain, Denies palpitations and Denies dyspnea Respiratory Respiratory: Denies cough and Denies dyspnea Gastrointestinal Gastrointestinal: Denies abdominal pain, Denies diarrhea, Denies nausea and Denies vomiting Neurologic Neurologic: Reports dizziness Endocrine Endocrine: Denies palpitations Physical Exam Vital Signs: Vital Signs: Last Vital Signs Temp 97.4 F 03/28/23 07:45 Pulse 90 03/28/23 08:12 Resp 16 03/28/23 08:12 BP 126/59 L 03/28/23 07:45 Pulse Ox 100 03/28/23 07:45 O2 Del Method Nasal Cannula 03/28/23 07:45 O2 Flow Rate 2.5 03/28/23 07:45 Oxygen Flow Rate 2 03/23/23 12:10 BMI result Body Mass Index 25.4 Appearing in no acute distress lung sounds dim heart regular rate rhythm, clear S1, S2 positive bowel sounds, abdomen is soft, nontender neuro patient is alert x3, no focal deficits Objective Data Active Medications Acetaminophen (Acetaminophen 325 Mg Tablet) 650 mg PO Q6H PRN PRN Reason: Pain, Mild (Pain Scale 1-3) Last Admin: 03/24/23 12:01 Dose: 650 mg Documented By: JACK Al Hydroxide/Mg Hydroxide (Magnesium Hydrox/Alum Hydrox 30 Ml Oral.Susp) 30 ml PO Q4H PRN PRN Reason: indigestion Last Admin: 03/27/23 20:08 Dose: 30 ml Documented By: MIRI-JOZEB Albuterol/Ipratropium (Albuterol/Iprat 2.5/0.5mg 3 Ml Ampul.Neb) 3 ml INHALE RQ4H WHILE AWAKE [facility] Last Admin: 03/28/23 08:11 Dose: 3 ml Documented By: SCOVILXin Albuterol/Ipratropium (Albuterol/Iprat 2.5/0.5mg 3 Ml Ampul.Neb) 3 ml INHALE RQ4H PRN PRN Reason: Wheezing Last Admin: 03/24/23 19:01 Dose: 3 ml Documented By: RADHA Atorvastatin Calcium (Atorvastatin Calcium 20 Mg Tablet) 20 mg PO BEDTIME [facility] Last Admin: 03/27/23 20:08 Dose: 20 mg Documented By: DO Enoxaparin Sodium (Enoxaparin Sodium 40 Mg/0.4 Ml Syringe) 40 mg SUBCUT Q24H [facility] Last Admin: 03/27/23 23:45 Dose: Not Given Documented By: DO Non-Admin Reason: Patient Refused Fluticasone Propionate (Fluticasone Propionate Nasal 16 Gm [place]) 1 spray NOSTRIL-B BID [facility] Last Admin: 03/28/23 09:51 Dose: 1 spray Documented By: SAV Fluticasone/Vilanterol (Fluticasone/Vilanterol 200/25 Blst.W.Dev) 1 puff INHALE RDAILY [facility] Last Admin: 03/28/23 08:11 Dose: 1 puff Documented By: ADRIENNE Ceftriaxone Sodium 1 gm/ (Sodium Chloride) 50 mls @ 100 mls/hr IV Q24H [facility] Last Infusion: 03/27/23 14:24 Dose: 0 mls/hr Documented By: RICHY Dextrose/Sodium Chloride (D5ns) 1,000 mls @ 100 mls/hr IVCONT .Q10H [facility] Last Admin: 03/28/23 05:49 Dose: 100 mls/hr Documented By: DO Levothyroxine Sodium (Levothyroxine Sodium 75 Mcg Tablet) 75 mcg PO DAILY@0600 [facility] Last Admin: 03/28/23 05:51 Dose: 75 mcg Documented By: DO Melatonin (Melatonin 3 Mg Tablet) 6 mg PO BEDTIME PRN PRN Reason: Insomnia Last Admin: 03/27/23 20:08 Dose: 6 mg Documented By: DO Omeprazole (Omeprazole 20 Mg Capsule.) 20 mg PO DAILY@0630 [facility] Last Admin: 03/28/23 05:51 Dose: 20 mg Documented By: DO Ondansetron HCl (Ondansetron Hcl 4 Mg/2 Ml Vial) 4 mg IVPUSH Q8H PRN PRN Reason: Nausea and Vomiting Last Admin: 03/27/23 20:17 Dose: 4 mg Documented By: DO Pharmacy Consult (Consult Rx Perform Med Rec) 1 each MISCELLANE ONCE PRN PRN Reason: Consult order Sertraline HCl (Sertraline Hcl 50 Mg Tablet) 50 mg PO DAILY [facility] Last Admin: 03/28/23 09:50 Dose: 50 mg Documented By: SAV Sodium Chloride (0.9 % Sodium Chloride Flush 3 Ml Syringe) 3 ml IVFLUSH QSHIFT [facility] Last Admin: 03/28/23 09:51 Dose: 3 ml Documented By: SAV Labs 03/27/23 06:14 03/27/23 06:14 Assessment and Plan (1) Dizziness: Status: Acute Plan Pt is a 63-year-old female with a PMH significant for?chronic hypoxic respiratory failure on 2L [place], COPD, hypertrophic cardiomyopathy, GERD, HTN, HLD, hypothyroidism, and seasonal allergies who presents from home via EMS to the ED with?generalized weakness, confusion, and dizziness. Patient will be admitted to observation on telemetry for continued evaluation and treatment of presyncope and altered mental status. Tremors/dizziness initially dizziness with movement/standing - orthostatic vitals negative, brain CT negative for acute pathology>resolved seen by PT/OT -rec STR MRI neg for acute or subacute stroke, showing chronic lacunar infarct ? symptoms r/t seizure activity. EEG pending psych eval for clonus ? r/t to psychotropic medication vs vertigo neurology Following >rec checking LP (ordered), also suggests treating vertigo with vomiting as probable labyrinthine dysfunction with meclizine Elevated ammonia level. Resolved likely related to dehydration abdominal US liver - normal size & contour LFTs wnl ammonia 86 on arrival, improved to 36 after a dose of lactulose still seems to be confused despite improvement in level, unclear significance Acute toxic metabolic encephalopathy UTI ammonia elevated on admission but no change in mental status with improvement in ammonia level brain CT negative, no focal deficits neuro consult>MRI neg for acute abnormality Acute COPD exacerbation with possible pneumonia on a background on chronic respiratory failure on 3L supplemental oxygen at baseline CT of chest showed chronic bronchial wall thickening and left perihilar density extending into the left upper lobe, worse than prior CT on 07/28/2022 seen by Pulmonology - rec breathing treatments, solu-medrol 1-2 days the prednisone 40 mg for 5 days rocephin for 5 days N/V likely viral gastroenteritis Hyponatremia Patient's sodium 131 at time of presentation resolved with IVF GERD Continue pantoprazole HLD Continue statin Hypothyroidism TSH 0.21, free t4 1.79 -->subclinical hyperthyroidism will decrease dose of levothyroxine Depression hold sertraline for now due to possible induction of clonus symptoms Full Code Attending:?Dr. Whitney DVT Prophylaxis: Lovenox Patient requires ongoing hospitalization for evaluation and treatment of dizziness and encephalopathy Time Spent With Patient Time: Total time managing care of this patient today ____ minutes. Quality Stroke Does the patient have a stroke diagnosis?: No VTE Prior VTE?: No VTE Risk Level:: Medical - moderate - high VTE Device Contraindication: Treatment Not Indicated VTE Drug Contraindication: N/A - Med Ordered
[2023-03-28 11:36] LABS: Lactic Acid 0.8 mmol/L (0.5-2.0)
[2023-03-28 11:54] LABS: Anion Gap 7 (12-20); Blood Urea Nitrogen 8 mg/dL (9-16); Carbon Dioxide 30 mmol/L (22-29); Chloride 103 mmol/L (96-108); Creatinine Clr Calc Pharmacy 82.6; Estimated Glomerular Filt Rate > 60; Glucose Random 148 mg/dL (60-115); Sodium 136 mmol/L (135-145)
[2023-03-28 12:02] LABS: Thyroid Stimulating Hormone 0.11 uIU/mL (0.32-4.0)
[2023-03-28] MEDS: cefTRIAXone sodium 1 GM in 0.9 % Sodium Chloride 50 ML IV (12:30)
--- NOTE | 2023-03-28 12:45 | P.CNNE_ITS ---
History of Present Illness Data of Consult Service Date: 03/28/23 Primary Care Provider: Bakari Lozano MD HPI Reason for consult: Altered mental status This ?is a 63-year-old female with h/o ?chronic hypoxic respiratory failure on 2L NC, COPD, hypertrophic cardiomyopathy, GERD, HTN, HLD, hypothyroidism, and seasonal allergies who presented to the ED with?2 days of vertigo and vomiting, poor po intake and generalized weakness, confusion. Pt is normally alert and oriented and functions independently at baseline. Pt states symptoms began approximately 2 days earlier with nausea, vomiting, vertigo, and decreased appetite.?Patient also began developing dizziness with ?the rooms spinning.?? Patient states she did fall once in her house , but denies loss of consciousness or head injury. Patient's family states that she has been having acute altered mental status with short-term memory problems , confusion and naming objects.? Patient has also been noted to have generalized weakness and family notes that today patient could not even get out of bed.?MRI brain shows minor microvascular changes and tiny old left cerebellar lacune. Review of Systems Review of Systems: Dizziness Confusion Decreased appetite Nausea, vomiting Chills No abdominal pain Chronic SOB, at baseline Denies cough Denies chest pain/pressure, palpitations Yes all other systems are reviewed and are negative Constitutional: Constitutional: Denies chills, Denies fever(s) and Reports weakness Eyes: Eyes: Reports no additional eye complaints ENT: Reports system reviewed and no additional complaints, except as documented and Reports dizziness Cardiovascular: Cardiovascular: Denies chest pain, Denies irregular heart rhythm, Denies leg edema, Denies palpitations and Denies dyspnea Respiratory: Respiratory: Reports as per HPI, Denies cough and Denies dyspnea Gastrointestinal: Gastrointestinal: Denies abdominal pain, Denies diarrhea, Denies nausea and Denies vomiting Musculoskeletal: Musculoskeletal: Reports no additional musculoskeletal complaints Integumentary/Breasts: Skin/Breast: Reports system reviewed and no additional complaints, except as docu Neurologic: Reports confusion (Partially), Reports dizziness and Reports weakness Psychiatric: Psychiatric: Reports confusion (Partially) Endocrine: Endocrine: Reports no additional endocrine complaints and Denies palpitations [facility] Past Medical History Medical History (Updated 03/24/23 @ 10:44 by Jo-Ann Cunningham MD) COPD exacerbation Pulmonary nodule Respiratory failure with hypoxia Family History Family History Father HTN (hypertension) Diabetes CVD (cardiovascular disease) Mother Diabetes HTN (hypertension) Surgical History Surgical History History of cardiac cath History of skin graft Hx of eye surgery Social History Social History Household Members: Spouse Housing: House Do you presently have visiting nurse or other home services: No Alcohol intake: never Patient Tobacco Use Status: Former Tobacco user Quit Date: 8 years ago Years Smoked: 35+ Smoked in Last 30 Days: No Use of substances other than those prescribed or required for medical reasons: No Currently Displaying Signs/Symptoms of Drug Intoxication Withdrawal: No Have you been hit, kicked, punched, or otherwise hurt by someone within the past year? If so, by whom?: No Do you feel safe in your current relationship?: Yes Is there a partner from a previous relationship who is making you feel unsafe n ow?: No Are you made to feel afraid or neglected: No Advance Directives: Yes Advance Directives Information Provided: No Advance Directives on File: No Advance Directives Date on File: 03/24/23 Do you have thoughts of harming others: None Do you have a plan to hurt others: No Plan Recently lost weight without trying: No Eating poorly because of decreased appetite: No Nutrition Risks: No Nutritional Risk Patient : No : No Poor oral hygiene: No service: No Current occupational status: retired and disabled Meds Allergies Allergy/AdvReac Type Severity Reaction Status Date / Time carvedilol Allergy Unknown chest Verified 01/31/23 13:14 tighness,sob,difficulty breathing lorazepam [Ativan] Allergy Unknown affects Verified 01/31/23 13:14 psychy Active Medications: Current Medications Acetaminophen (Acetaminophen 325 Mg Tablet) 650 mg PO Q6H PRN PRN Reason: Pain, Mild (Pain Scale 1-3) Last Admin: 03/24/23 12:01 Dose: 650 mg Al Hydroxide/Mg Hydroxide (Magnesium Hydrox/Alum Hydrox 30 Ml Oral.Susp) 30 ml PO Q4H PRN PRN Reason: indigestion Last Admin: 03/27/23 20:08 Dose: 30 ml Albuterol/Ipratropium (Albuterol/Iprat 2.5/0.5mg 3 Ml Ampul.Neb) 3 ml INHALE RQ4H WHILE AWAKE [facility] Last Admin: 03/28/23 11:23 Dose: 3 ml Albuterol/Ipratropium (Albuterol/Iprat 2.5/0.5mg 3 Ml Ampul.Neb) 3 ml INHALE RQ4H PRN PRN Reason: Wheezing Last Admin: 03/24/23 19:01 Dose: 3 ml Atorvastatin Calcium (Atorvastatin Calcium 20 Mg Tablet) 20 mg PO BEDTIME [facility] Last Admin: 03/27/23 20:08 Dose: 20 mg Enoxaparin Sodium (Enoxaparin Sodium 40 Mg/0.4 Ml Syringe) 40 mg SUBCUT Q24H [facility] Last Admin: 03/27/23 23:45 Dose: Not Given Fluticasone Propionate (Fluticasone Propionate Nasal 16 Gm [place]) 1 spray NOSTRIL-B BID [facility] Last Admin: 03/28/23 09:51 Dose: 1 spray Fluticasone/Vilanterol (Fluticasone/Vilanterol 200/25 Blst.W.Dev) 1 puff INHALE RDAILY [facility] Last Admin: 03/28/23 08:11 Dose: 1 puff Ceftriaxone Sodium 1 gm/ (Sodium Chloride) 50 mls @ 100 mls/hr IV Q24H [facility] Last Admin: 03/28/23 12:30 Dose: 100 mls/hr Dextrose/Sodium Chloride (D5ns) 1,000 mls @ 100 mls/hr IVCONT .Q10H [facility] Last Admin: 03/28/23 05:49 Dose: 100 mls/hr Levothyroxine Sodium (Levothyroxine Sodium 75 Mcg Tablet) 75 mcg PO DAILY@0600 [facility] Last Admin: 03/28/23 05:51 Dose: 75 mcg Melatonin (Melatonin 3 Mg Tablet) 6 mg PO BEDTIME PRN PRN Reason: Insomnia Last Admin: 03/27/23 20:08 Dose: 6 mg Omeprazole (Omeprazole 20 Mg Capsule.Dr) 20 mg PO DAILY@0630 [facility] Last Admin: 03/28/23 05:51 Dose: 20 mg Ondansetron HCl (Ondansetron Hcl 4 Mg/2 Ml Vial) 4 mg IVPUSH Q8H PRN PRN Reason: Nausea and Vomiting Last Admin: 03/27/23 20:17 Dose: 4 mg Pharmacy Consult (Consult Rx Perform Med Rec) 1 each MISCELLANE ONCE PRN PRN Reason: Consult order Prednisone (Prednisone 20 Mg Tablet) 40 mg PO DAILY [facility] Sertraline HCl (Sertraline Hcl 50 Mg Tablet) 50 mg PO DAILY [facility] Last Admin: 03/28/23 09:50 Dose: 50 mg Sodium Chloride (0.9 % Sodium Chloride Flush 3 Ml Syringe) 3 ml IVFLUSH QSHIFT [facility] Last Admin: 03/28/23 09:51 Dose: 3 ml Home Medications Medication Instructions Recorded Confirmed Last Taken Type levothyroxine 100 mcg tablet 100 mcg PO DAILY@0600 09/21/20 03/24/23 03/23/23 History sertraline 50 mg tablet 50 mg PO DAILY 09/21/20 03/24/23 03/23/23 History simvastatin 40 mg tablet 40 mg PO BEDTIME 09/21/20 03/24/23 03/23/23 History albuterol sulfate 2.5 mg/3 mL 2.5 mg inhalation Q6H PRN 11/10/21 03/24/23 Unknown History (0.083 %) solution for nebulization Shortness Of Breath Or Wheezing pantoprazole 40 mg tablet,delayed 40 mg PO DAILY@0630 03/30/22 03/24/23 03/23/23 History release fluticasone propionate 50 1 spray intranasal BID 03/23/23 03/24/23 03/23/23 History mcg/actuation nasal spray,suspension ascorbic acid (vitamin C) 1,000 mg 1 g PO DAILY 03/24/23 03/24/23 03/23/23 History tablet (Vitamin C) cetirizine 10 mg tablet 10 mg PO DAILY PRN Allergic 03/24/23 03/24/23 Unknown History Symptoms cholecalciferol (vitamin D3) 25 25 mcg PO DAILY 03/24/23 03/24/23 03/23/23 History mcg (1,000 unit) tablet (Vitamin D3) prednisone 20 mg tablet 20 mg PO BID PRN copd exacerbation 03/24/23 03/24/23 Unknown History Physical Exam Vital Signs: Vital Signs: Last Vital Signs Temp 98.0 F 03/28/23 11:58 Pulse 87 03/28/23 11:58 Resp 20 05/30/23 11:58 BP 150/67 H 03/28/23 11:58 Pulse Ox 96 03/28/23 11:58 O2 Del Method Nasal Cannula 03/28/23 11:58 O2 Flow Rate 2 03/28/23 11:58 Oxygen Flow Rate 2 03/23/23 12:10 BMI result Body Mass Index 25.4 Const: General: comfortable, no acute distress, alert, awake and confusion (Partially) Nutritional Appearance: average body habitus Orientation/consciousness: oriented to person, oriented to place and confusion (Partially) HEENT: Head: Yes normal to inspection General nose exam: No nasal polyps present and No nasal discharge present Face and sinus: Yes sinuses nontender Mouth: oropharynx normal Throat: Yes posterior oropharynx normal Eyes: General: appearance normal, both eyes and all related structures Neck: Neck: Yes normal visual inspection, Yes no lymphadenopathy, Yes trachea midline and Yes no JVD Thyroid: Thyroid normal Chest: Chest palpation & inspection: normal inspection of the chest, normal palpation of entire chest wall and no tenderness Resp: Other: Percussion note hyper-resonant, breath sounds are very distant on both sides, No definite wheezes or crepitations are heard. Effort & Inspection: normal respiratory effort, able to speak in complete sentences, no respiratory distress and no use of accessory muscles Cardio: Palpation: normal PMI Rate: regular rate Rhythm: regular rhythm Heart sounds: S1 normal heart sound present, S2 normal heart sound present, no gallops and no murmurs GI: Inspection: No distended Palpation (GI): Soft to palpation, nontender, No hepatosplenomegaly present and no masses Auscultation: normal bowel sounds Back/Spine/Pelvis: Thoracic/Lumbar Spine: thoracic and lumbar spine normal to inspection Skin: General skin exam: no rashes or lesions noted Neuro: Other: Alert pleasnr and cooperative. Disoriented to day and month. Knows year. mentally sluggish. Neck supple. No focal deficits appreciated, General: oriented to person, oriented to place, moves all extremities and confusion (Partially) Cranial nerves: Yes CN's II-XII intact bilaterally Extrem: General: Yes normal to inspection, Yes no clubbing, cyanosis or edema, Yes no pedal edema and Yes no calf tenderness Psych: Speech and movement: Normal speech and movement present Results Labs 03/27/23 06:14 03/28/23 11:19 Labs: BMP 03/28/23 11:19 Sodium 136 Potassium 4.0 Chloride 103 Carbon Dioxide 30 H BUN 8 L Creatinine 0.56 Calcium 9.0 Cardiac Enzymes 03/28/23 Range/Units 11:19 Total Creatine Kinase 22 L (26-140) U/L Microbiology Microbiology Results: Microbiology 03/23/23 14:33 Blood - Venous Blood Culture - Preliminary No growth after 48 hours. 03/23/23 14:14 Blood - Venous Blood Culture - Preliminary No growth after 48 hours. 03/23/23 Unknown Urine clean catch - Urine kauffman top Urine Culture - Final Assessment and Plan (1) Dizziness: Status: Acute Vertigo with vomiting probably labyrinthine dysfunction. Traet symptomatically with Meclizine 25mg tid. (2) Altered mental status: Status: Acute Encephalopathy from metabolic / infectious etiology. Recom. R/O infection, including LP. Check ammonia Pco2. EEG Plan Pt is a 63-year-old female with a PMH significant for?chronic hypoxic respiratory failure on 2L NC, COPD, hypertrophic cardiomyopathy, GERD, HTN, HLD, hypothyroidism, and seasonal allergies who presents from home via EMS to the ED with?generalized weakness, confusion, and dizziness. Patient will be admitted to observation on telemetry for continued evaluation and treatment of presyncope and altered mental status. Myoclonus/tremors initially dizziness with movement/standing - orthostatic vitals negative, brain CT negative for acute pathology>resolved seen by PT/OT -rec STR neurology Following MRI neg for acute or subacute stroke, showing chronic lacunar infarct ? symptoms r/t seizure activity. EEG pending psych eval for clonus ? r/t to psychotropic medication Elevated ammonia level. Resolved likely related to dehydration abdominal US liver - normal size & contour LFTs wnl ammonia 86 on arrival, improved to 36 after a dose of lactulose still seems to be confused despite improvement in level, unclear significance Acute toxic metabolic encephalopathy UTI ammonia elevated on admission but no change in mental status with improvement in ammonia level brain CT negative, no focal deficits neuro consult>MRI neg for acute abnormality Acute COPD exacerbation with possible pneumonia on a background on chronic respiratory failure on 3L supplemental oxygen at baseline CT of chest showed chronic bronchial wall thickening and left perihilar density extending into the left upper lobe, worse than prior CT on 07/28/2022 seen by Pulmonology - rec breathing treatments, solu-medrol 1-2 days the prednisone 40 mg for 5 days rocephin for 5 days N/V likely viral gastroenteritis Hyponatremia Patient's sodium 131 at time of presentation resolved with IVF GERD Continue pantoprazole HLD Continue statin Hypothyroidism TSH 0.21, free t4 1.79 -->subclinical hyperthyroidism will decrease dose of levothyroxine Depression hold sertraline for now due to possible induction of clonus symptoms Full Code Attending:?Dr. Whitney DVT Prophylaxis: Lovenox Patient requires ongoing hospitalization for evaluation and treatment of dizziness and encephalopathy Time Spent With Patient Time: Total time managing care of this patient today ____ minutes. Procedures Date of Service Date of Service: 03/28/23
[2023-03-28] MEDS: Meclizine HCl 25 MG TABLET PO (15:13)
[2023-03-28] MEDS: ondansetron HCL 4 MG/2 ML VIAL IVPUSH (20:26)
[2023-03-28] MEDS: Atorvastatin Calcium 20 MG TABLET PO (20:26)
[2023-03-28] MEDS: Enoxaparin Sodium 40 MG/0.4 ML SYRINGE SUBCUT (22:15)
[2023-03-28] MEDS: Melatonin 3 MG TABLET 6 MG PO (22:15)
[2023-03-29] VITALS (11 sets, daily range): BP systolic 98–130; BP diastolic 49–82; PULSE 76–98; RESP 14–20; TEMP 36.2–37.7; O2SAT 94–98
--- NOTE | 2023-03-29 | EEG_ITS ---
FINDINGS: Waking background activity consists of a diffuse moderate voltage 5 to 6 hertz theta with an abundance of high voltage muscle artifacts and sharp discharges related to muscle artifact. Occasional bifrontal triphasic waves are seen. Photic stimulation and hyperventilation were omitted. Patient is clinically noted to have some twitches and tremors during the recording. She is not fully following commands. No epileptiform discharges were seen. IMPRESSION: This is an abnormal EEG due to diffuse background slowing and some bifrontal triphasic waves, which are most consistent with a metabolic encephalopathy. No clear epileptiform discharges were seen. MD JEANETTE Dunbar/MODL / [id number]
[2023-03-29] MEDS: Levothyroxine Sodium 75 MCG TABLET PO (05:28)
[2023-03-29] MEDS: Omeprazole 20 MG CAPSULE.DR PO (05:29)
[2023-03-29] MEDS: Albuterol/Iprat 2.5/0.5MG 3 ML AMPUL.NEB INHALE ×3 (07:41→20:12)
[2023-03-29] MEDS: Fluticasone/Vilanterol 200/25 BLST.W.DEV 1 PUFF INHALE (07:41)
[2023-03-29] MEDS: Fluticasone Propionate Nasal 16 GM SPRAY 1 SPRAY NOSTRIL-B ×2 (07:57→20:25)
[2023-03-29] MEDS: predniSONE 20 MG TABLET 40 MG PO (07:58)
[2023-03-29 09:49] LABS: Hemoglobin 12.7 g/dl (12.0-16.0); Mean Corpuscular HGB Conc 33.4 g/dl (31.0-35.0); Mean Corpuscular Hemoglobin 30.6 pg (27.0-33.0); Mean Corpuscular Volume 91.6 fL (80.0-98.0); Mean Platelet Volume 8.7 fL (9.4-12.3); Platelet Count 448 X10*3/uL (160-400); Red Blood Count 4.15 X10*6/uL (4.20-5.50); Red Cell Distribution Width 12.4 % (11.0-16.0)
[2023-03-29 09:52] LABS: VBG Base Excess 9.6 mmol/L; VBG HCO3 33 mmol/L (22-26); VBG pCO2 41 mmHg; VBG pH 7.51 (7.32-7.43); VBG pO2 95 mmHg
[2023-03-29 09:53] LABS: Venous Blood Gas Refer to POC result
[2023-03-29 09:58] LABS: Partial Thromboplastin Time 25.6 SEC (26.0-36.4)
[2023-03-29 10:06] LABS: Ammonia 34 umol/L (13-55)
[2023-03-29 10:16] LABS: Alanine Aminotransferase 26 U/L (0-31); Albumin Level 3.3 g/dL (3.5-5.0); Alkaline Phosphatase 54 U/L (39-117); Anion Gap 10 (12-20); Aspartate Amino Transferase 14 U/L (5-31); Bilirubin Total 0.4 mg/dL (0.0-1.0); Blood Urea Nitrogen 7 mg/dL (9-16); Calcium 8.8 mg/dL (8.4-10.2); Carbon Dioxide 28 mmol/L (22-29); Chloride 103 mmol/L (96-108); Creatinine Clr Calc Pharmacy 75.8; Estimated Glomerular Filt Rate > 60; Glucose Random 114 mg/dL (60-115); Potassium 3.5 mmol/L (3.3-5.1); Sodium 137 mmol/L (135-145)
--- NOTE | 2023-03-29 10:20 | MHC.CM.PN ---
Per ROUNDS discussion, Patient is having a LP today and is not yet medically cleared for dc. PT is recommending STR and CM will continue to follow.
[2023-03-29 10:29] LABS: Syphilis Screen Nonreactive (Nonreactive)
[2023-03-29 10:30] LABS: HIV AB/AG Nonreactive (Nonreactive); HIV Num 1 0.13 S/CO (0.00-0.99)
--- NOTE | 2023-03-29 14:17 | PC.NURSE ---
Patient alert to self and place only off on date. States something is wrong with me. Follows commands. HARTMAN 3/5 sensation intact, +pp bilat no edema noted. Continues with body tremors increased with movement. Denies headache, dizziness or vision changes pupils 2S nystagmus noted with tracking and at rest. Dr Cotter aware on unit to see patient. Off unit early am for EEG. Pt unable to void this am bladder scan 795. OOB to commode with max assist only able to void 100ml. Dr Cotter notified damon cath placed for retention per order meticulous ramses care provided prior to placement. Off unit at 1130 for LP returns to unit approx 1430 sleepy but arousable assessment unchanged. Flat bed dressing to lower back CDI. IV fluids restarted on arrival. Vital signs stable. Will continue to monitor
[2023-03-29] MEDS: cefTRIAXone sodium 1 GM in 0.9 % Sodium Chloride 50 ML IV (14:44)
[2023-03-29 15:00] LABS: CSF Appearance Clear, Colorless; CSF Tube # 1
[2023-03-29 15:13] LABS: Glucose CSF 66 mg/dL; Total Protein CSF 63.6 mg/dL (15-45)
--- NOTE | 2023-03-29 15:27 | P.PNIM_ITS ---
Subjective Subjective Date of Service: 03/29/23 Interval History: intermittent twitching movements + clonus. nystagmus also noted no fever oriented + alert Review of Systems Review of Systems: Yes all other systems are reviewed and are negative Physical Exam Vital Signs: Vital Signs: Last Vital Signs Temp 97.5 F 03/29/23 14:30 Pulse 87 03/29/23 14:30 Resp 18 03/29/23 14:30 BP 105/69 03/29/23 14:30 Pulse Ox 94 03/29/23 14:30 O2 Del Method Nasal Cannula 03/29/23 14:30 O2 Flow Rate 2 03/29/23 14:30 Oxygen Flow Rate 2 03/23/23 12:10 BMI result Body Mass Index 25.4 Gen: in no acute distress HEENT: sclera anicteric, moist mucus membranes Neck: supple Lungs: clear to auscultation bilaterally Heart: regular rate and rhythm, no murmurs Abd: soft, non-tender, non-distended Ext: no edema Skin: warm/well-perfused Neuro: alert and oriented, generalized twitching movements, clonus, nystagmus Psych: appropriate affect Objective Data Active Medications Acetaminophen (Acetaminophen 325 Mg Tablet) 650 mg PO Q6H PRN PRN Reason: Pain, Mild (Pain Scale 1-3) Last Admin: 03/24/23 12:01 Dose: 650 mg Documented By: JACK Al Hydroxide/Mg Hydroxide (Magnesium Hydrox/Alum Hydrox 30 Ml Oral.Susp) 30 ml PO Q4H PRN PRN Reason: indigestion Last Admin: 03/27/23 20:08 Dose: 30 ml Documented By: DO Albuterol/Ipratropium (Albuterol/Iprat 2.5/0.5mg 3 Ml Ampul.Neb) 3 ml INHALE RQ4H WHILE AWAKE [facility] Last Admin: 03/29/23 11:40 Dose: Not Given Documented By: LONNIE Non-Admin Reason: Off Unit: Surgery Albuterol/Ipratropium (Albuterol/Iprat 2.5/0.5mg 3 Ml Ampul.Neb) 3 ml INHALE RQ4H PRN PRN Reason: Wheezing Last Admin: 03/24/23 19:01 Dose: 3 ml Documented By: RADHA Atorvastatin Calcium (Atorvastatin Calcium 20 Mg Tablet) 20 mg PO BEDTIME [facility] Last Admin: 03/28/23 20:26 Dose: 20 mg Documented By: STEFANIE Enoxaparin Sodium (Enoxaparin Sodium 40 Mg/0.4 Ml Syringe) 40 mg SUBCUT Q24H [facility] Last Admin: 03/28/23 22:15 Dose: 40 mg Documented By: STEFANIE Fluticasone Propionate (Fluticasone Propionate Nasal 16 Gm [place]) 1 spray NOSTRIL-B BID [facility] Last Admin: 03/29/23 07:57 Dose: 1 spray Documented By: REBEKA Fluticasone/Vilanterol (Fluticasone/Vilanterol 200/25 Blst.W.Dev) 1 puff INHALE RDAILY [facility] Last Admin: 03/29/23 07:41 Dose: 1 puff Documented By: LONNIE Ceftriaxone Sodium 1 gm/ (Sodium Chloride) 50 mls @ 100 mls/hr IV Q24H [facility] Last Admin: 03/29/23 14:44 Dose: 100 mls/hr Documented By: REBEKA Levothyroxine Sodium (Levothyroxine Sodium 75 Mcg Tablet) 75 mcg PO DAILY@0600 [facility] Last Admin: 03/29/23 05:28 Dose: 75 mcg Documented By: STEFANIE Meclizine HCl (Meclizine Hcl 25 Mg Tablet) 25 mg PO Q8H PRN PRN Reason: dizziness Melatonin (Melatonin 3 Mg Tablet) 6 mg PO BEDTIME PRN PRN Reason: Insomnia Last Admin: 03/28/23 22:15 Dose: 6 mg Documented By: STEFANIE Omeprazole (Omeprazole 20 Mg Capsule.Dr) 20 mg PO DAILY@0630 [facility] Last Admin: 03/29/23 05:29 Dose: 20 mg Documented By: STEFANIE Ondansetron HCl (Ondansetron Hcl 4 Mg/2 Ml Vial) 4 mg IVPUSH Q8H PRN PRN Reason: Nausea and Vomiting Last Admin: 03/28/23 20:26 Dose: 4 mg Documented By: STEFANIE Pharmacy Consult (Consult Rx Perform Med Rec) 1 each MISCELLANE ONCE PRN PRN Reason: Consult order Prednisone (Prednisone 20 Mg Tablet) 40 mg PO DAILY [facility] Last Admin: 03/29/23 07:58 Dose: 40 mg Documented By: REBEKA Sertraline HCl (Sertraline Hcl 50 Mg Tablet) 50 mg PO DAILY [facility] Last Admin: 03/28/23 09:50 Dose: 50 mg Documented By: SAV Sodium Chloride (0.9 % Sodium Chloride Flush 3 Ml Syringe) 3 ml IVFLUSH QSHIFT [facility] Last Admin: 03/29/23 10:13 Dose: Not Given Documented By: REBEKA Non-Admin Reason: IV Running Labs 03/29/23 09:42 03/29/23 09:42 Labs: Laboratory Results - last 24 hr 03/29/23 03/29/23 03/29/23 09:42 09:42 09:42 MCV 91.6 MCH 30.6 MCHC 33.4 RDW 12.4 Plt Count 448 H MPV 8.7 L Absolute Nucleated RBC 0.000 Nucleated RBC % (auto) 0.0 PT INR APTT VBG pH VBG pCO2 VBG pO2 VBG HCO3 VBG O2 Saturation VBG Base Excess Anion Gap 10 L Estim Creat Clear Calc 75.8 Estimated GFR > 60 Random Glucose 114 Calcium 8.8 Total Bilirubin 0.4 AST 14 ALT 26 Alkaline Phosphatase 54 Ammonia 34 Total Protein 6.0 L Albumin 3.3 L CSF Tube Number CSF Appearance (b) CSF Glucose CSF Total Protein T.pallidum Ab (EIA) HIV 1&2 Ab/P24 Ag 4thGn 03/29/23 03/29/23 03/29/23 09:42 09:42 09:42 MCV MCH MCHC RDW Plt Count MPV Absolute Nucleated RBC Nucleated RBC % (auto) PT 12.0 INR 1.0 APTT 25.6 L VBG pH VBG pCO2 VBG pO2 VBG HCO3 VBG O2 Saturation VBG Base Excess Anion Gap Estim Creat Clear Calc Estimated GFR Random Glucose Calcium Total Bilirubin AST ALT Alkaline Phosphatase Ammonia Total Protein Albumin CSF Tube Number CSF Appearance (b) CSF Glucose CSF Total Protein T.pallidum Ab (EIA) Nonreactive HIV 1&2 Ab/P24 Ag 4thGn Nonreactive 03/29/23 03/29/23 09:45 13:30 MCV MCH MCHC RDW Plt Count MPV Absolute Nucleated RBC Nucleated RBC % (auto) PT INR APTT VBG pH 7.51 H VBG pCO2 41 VBG pO2 95 VBG HCO3 33 H VBG O2 Saturation 100.0 VBG Base Excess 9.6 Anion Gap Estim Creat Clear Calc Estimated GFR Random Glucose Calcium Total Bilirubin AST ALT Alkaline Phosphatase Ammonia Total Protein Albumin CSF Tube Number 1 CSF Appearance (b) Clear, Colorless CSF Glucose 66 CSF Total Protein 63.6 H T.pallidum Ab (EIA) HIV 1&2 Ab/P24 Ag 4thGn Microbiology Microbiology Results: Microbiology 03/23/23 14:33 Blood Culture - Final Blood - Venous No growth after 5 days. 03/23/23 14:14 Blood Culture - Final Blood - Venous No growth after 5 days. Assessment and Plan (1) Dizziness: Status: Acute Plan hosp d#6 63yo F with COPD + chronic hypoxic resp failure on 2L O2, HOCM, GERD, HTN, HLD, hypothyroidism, seasonal allergy presented with generalized weakness, dizziness, and confusion admitted for AMS # twitching movements, dizziness, vertigo # encephalopathy, acute - MRI neg for acute or subacute stroke, showing chronic lacunar infarct - EEG per Dr Horvath: Diffuse slowing with some frontal triphasic waves c onsistent with metabolic encephalopathy. No seizure discharges. - pCO2 normal, ammonia normal after 1 dose of lactulose, normal LFTs + normal renal function - hold sertraline though not on any other medications that would contribute to serotonin syndrome - LP done, CSF studies pending - meclizine for component of vertigo # acute COPD exac with possible PNA - CT of chest showed chronic bronchial wall thickening and left perihilar density extending into the left upper lobe, worse than prior CT on 07/28/2022 - seen by Pulmonology - rec breathing treatments, Solu-medrol 1-2 days then prednisone 40 mg for 5 days, ceftriaxone for 5 days completed - continue Breo, prn neb treatments # chronic hypoxic RF - home O2 2L # UTI - completed 5d ceftriaxone # N/V - resolved # hypoNa, mild - resolved # GERD - continue PPI # HLD - continue statin # hypothyroidism - TSH over-suppressed; LT4 dose decreased # depression - sertraline held as above # VTE ppx: LMWH # dispo - eventual STR In my clinical judgment, the patient requires continued inpatient hospitalization for the following reasons: neurological workup Time Spent With Patient Time: Total time managing care of this patient today __55__ minutes. Quality Stroke Does the patient have a stroke diagnosis?: No VTE Prior VTE?: No VTE Risk Level:: Medical - moderate - high VTE Device Contraindication: Treatment Not Indicated VTE Drug Contraindication: N/A - Med Ordered
[2023-03-29 15:39] LABS: Appearance CSF CLEAR; CSF Tube # 4; Color CSF COLORLESS
[2023-03-29 15:55] LABS: Red Blood Cell CSF 1 MM*3; White Blood Cell CSF 21 MM*3
[2023-03-29 15:56] LABS: CSF Monos 1 %; Lymphocytes CSF 99 %
[2023-03-29 16:14] LABS: C Reactive Protein < 0.10 mg/dL (< or = 0.50)
[2023-03-29 16:29] LABS: Cryptococcus neoformans/gattii Not Detected (Not Detect.); Enterovirus Not Detected (Not Detect.); Escherichia coli K1 Not Detected (Not Detect.); Haemophilus influenzae Not Detected (Not Detect.); Herpes simplex virus 1 Not Detected (Not Detect.); Herpes simplex virus 2 Not Detected (Not Detect.); Human herpesvirus 6 Not Detected (Not Detect.); Human parechovirus Not Detected (Not Detect.); Listeria monocytogenes Not Detected (Not Detect.); Neisseria meningitidis Not Detected (Not Detect.); Streptococcus agalactiae Not Detected (Not Detect.); Streptococcus pneumoniae Not Detected (Not Detect.); Varicella zoster virus Not Detected (Not Detect.)
[2023-03-29 16:31] LABS: Procalcitonin 0.52 ng/mL
--- NOTE | 2023-03-29 17:48 | PM.PSYCN ---
History of Present Illness Date of Service: 03/29/23 Chief Complaint: dizziness Reason for Consult: myoclonus HPI Narrative: per medicine progress note of 03/29: 63yo F with COPD + chronic hypoxic resp failure on 2L O2, HOCM, GERD, HTN, HLD, hypothyroidism, seasonal allergy presented with generalized weakness, dizziness, and confusion admitted for AMS # twitching movements, dizziness, vertigo # encephalopathy, acute - MRI neg for acute or subacute stroke, showing chronic lacunar infarct - EEG per Dr Horvath: Diffuse slowing with some frontal triphasic waves consistent with metabolic encephalopathy. No seizure discharges. - pCO2 normal, ammonia normal after 1 dose of lactulose, normal LFTs + normal renal function - hold sertraline though not on any other medications that would contribute to serotonin syndrome - LP done, CSF studies pending - meclizine for component of vertigo per psych eval of 03/29: pt seen, 3-4 beats of myoclonus in lower extremities noted. pt appears delirious, unable to answer basic questions. medications and Hx reviewed, pt noted to have been on zoloft, now being held. relative present, some collateral provided such as that the only new systemic medication recently was zyrtec and that mental status change occurred over a 2-day period. [facility] Medical History (Updated 03/24/23 @ 10:44 by Jo-Ann Cunningham MD) COPD exacerbation Pulmonary nodule Respiratory failure with hypoxia Surgical History History of cardiac cath History of skin graft Hx of eye surgery Diagnostics Vital Signs (24Hr): Vital Signs - 24 hr 03/28/23 18:58 03/28/23 19:33 03/28/23 23:45 Temperature 98.1 F 98.6 F Pulse Rate 72 72 87 Respiratory Rate 20 20 20 Blood Pressure 134/65 122/75 Pulse Oximetry 98 97 Oxygen Delivery Method Nasal Cannula Nasal Cannula Oxygen Flow Rate 2 2 03/29/23 03:02 03/29/23 07:16 03/29/23 07:43 Temperature 98.0 F 97.7 F Pulse Rate 76 77 84 Respiratory Rate 20 17 18 Blood Pressure 115/71 111/66 Pulse Oximetry 98 97 Oxygen Delivery Method Nasal Cannula Nasal Cannula Oxygen Flow Rate 2 2 03/29/23 09:33 03/29/23 13:59 03/29/23 13:55 Temperature 99.8 F 99.4 F Pulse Rate 98 83 Respiratory Rate 18 14 Blood Pressure 126/59 L 112/49 L Pulse Oximetry 94 97 Oxygen Delivery Method Nasal Cannula Room Air Nasal Cannula Oxygen Flow Rate 2 2 03/29/23 14:14 03/29/23 14:30 03/29/23 15:41 Temperature 97.2 F 97.5 F Pulse Rate 89 87 88 Respiratory Rate 20 18 18 Blood Pressure 101/55 L 105/69 Pulse Oximetry 96 94 Oxygen Delivery Method Nasal Cannula Nasal Cannula Oxygen Flow Rate 2 2 BMI result Body Mass Index 25.4 Labs 03/29/23 09:42 03/29/23 09:42 Labs: Laboratory Results - last 48 hr 03/28/23 03/28/23 03/29/23 11:19 11:19 09:42 WBC 14.0 H RBC 4.15 L Hgb 12.7 Hct 38.0 MCV 91.6 MCH 30.6 MCHC 33.4 RDW 12.4 Plt Count 448 H MPV 8.7 L Absolute Nucleated RBC 0.000 Nucleated RBC % (auto) 0.0 PT INR APTT VBG pH VBG pCO2 VBG pO2 VBG HCO3 VBG O2 Saturation VBG Base Excess Sodium 136 Potassium 4.0 Chloride 103 Carbon Dioxide 30 H Anion Gap 7 L BUN 8 L Creatinine 0.56 Estim Creat Clear Calc 82.6 Estimated GFR > 60 Random Glucose 148 H Lactic Acid 0.8 Calcium 9.0 Total Bilirubin AST ALT Alkaline Phosphatase Ammonia Total Creatine Kinase 22 L C-Reactive Protein Total Protein Albumin Procalcitonin TSH 0.11 L CSF Tube Number CSF Volume CSF Appearance CSF Color CSF WBC CSF RBC CSF Lymphocytes CSF Monocytes % CSF Appearance (b) CSF Glucose CSF Total Protein CSF C.neoform/gat PCR CSF CMV DNA (PCR) CSF Enterovirus (PCR) CSF E. coli K1 (PCR) CSF H. influenzae (PCR) CSF HSV I (PCR) CSF HSV II (PCR) CSF HHV 6 (PCR) CSF L.monocytogenes PCR CSF N. meningitidis PCR CSF Parechovirus (PCR) CSF S. agalactiae (PCR) CSF S. pneumoniae (PCR) CSF VZV (PCR) T.pallidum Ab (EIA) HIV 1&2 Ab/P24 Ag 4thGn 03/29/23 03/29/23 03/29/23 09:42 09:42 09:42 WBC RBC Hgb Hct MCV MCH MCHC RDW Plt Count MPV Absolute Nucleated RBC Nucleated RBC % (auto) PT INR APTT VBG pH VBG pCO2 VBG pO2 VBG HCO3 VBG O2 Saturation VBG Base Excess Sodium 137 Potassium 3.5 Chloride 103 Carbon Dioxide 28 Anion Gap 10 L BUN 7 L Creatinine 0.61 Estim Creat Clear Calc 75.8 Estimated GFR > 60 Random Glucose 114 Lactic Acid Calcium 8.8 Total Bilirubin 0.4 AST 14 ALT 26 Alkaline Phosphatase 54 Ammonia 34 Total Creatine Kinase C-Reactive Protein < 0.10 Total Protein 6.0 L Albumin 3.3 L Procalcitonin 0.52 TSH CSF Tube Number CSF Volume CSF Appearance CSF Color CSF WBC CSF RBC CSF Lymphocytes CSF Monocytes % CSF Appearance (b) CSF Glucose CSF Total Protein CSF C.neoform/gat PCR CSF CMV DNA (PCR) CSF Enterovirus (PCR) CSF E. coli K1 (PCR) CSF H. influenzae (PCR) CSF HSV I (PCR) CSF HSV II (PCR) CSF HHV 6 (PCR) CSF L.monocytogenes PCR CSF N. meningitidis PCR CSF Parechovirus (PCR) CSF S. agalactiae (PCR) CSF S. pneumoniae (PCR) CSF VZV (PCR) T.pallidum Ab (EIA) Nonreactive HIV 1&2 Ab/P24 Ag 4thGn 03/29/23 03/29/23 03/29/23 09:42 09:42 09:45 WBC RBC Hgb Hct MCV MCH MCHC RDW Plt Count MPV Absolute Nucleated RBC Nucleated RBC % (auto) PT 12.0 INR 1.0 APTT 25.6 L VBG pH 7.51 H VBG pCO2 41 VBG pO2 95 VBG HCO3 33 H VBG O2 Saturation 100.0 VBG Base Excess 9.6 Sodium Potassium Chloride Carbon Dioxide Anion Gap BUN Creatinine Estim Creat Clear Calc Estimated GFR Random Glucose Lactic Acid Calcium Total Bilirubin AST ALT Alkaline Phosphatase Ammonia Total Creatine Kinase C-Reactive Protein Total Protein Albumin Procalcitonin TSH CSF Tube Number CSF Volume CSF Appearance CSF Color CSF WBC CSF RBC CSF Lymphocytes CSF Monocytes % CSF Appearance (b) CSF Glucose CSF Total Protein CSF C.neoform/gat PCR CSF CMV DNA (PCR) CSF Enterovirus (PCR) CSF E. coli K1 (PCR) CSF H. influenzae (PCR) CSF HSV I (PCR) CSF HSV II (PCR) CSF HHV 6 (PCR) CSF L.monocytogenes PCR CSF N. meningitidis PCR CSF Parechovirus (PCR) CSF S. agalactiae (PCR) CSF S. pneumoniae (PCR) CSF VZV (PCR) T.pallidum Ab (EIA) HIV 1&2 Ab/P24 Ag 4thGn Nonreactive 03/29/23 03/29/23 03/29/23 13:30 13:30 13:44 WBC RBC Hgb Hct MCV MCH MCHC RDW Plt Count MPV Absolute Nucleated RBC Nucleated RBC % (auto) PT INR APTT VBG pH VBG pCO2 VBG pO2 VBG HCO3 VBG O2 Saturation VBG Base Excess Sodium Potassium Chloride Carbon Dioxide Anion Gap BUN Creatinine Estim Creat Clear Calc Estimated GFR Random Glucose Lactic Acid Calcium Total Bilirubin AST ALT Alkaline Phosphatase Ammonia Total Creatine Kinase C-Reactive Protein Total Protein Albumin Procalcitonin TSH CSF Tube Number 1 4 CSF Volume 2.0 CSF Appearance CLEAR CSF Color COLORLESS CSF WBC 21 H* CSF RBC 1 CSF Lymphocytes 99 CSF Monocytes % 1 CSF Appearance (b) Clear, Colorless CSF Glucose 66 CSF Total Protein 63.6 H CSF C.neoform/gat PCR Not Detected CSF CMV DNA (PCR) Not Detected CSF Enterovirus (PCR) Not Detected CSF E. coli K1 (PCR) Not Detected CSF H. influenzae (PCR) Not Detected CSF HSV I (PCR) Not Detected CSF HSV II (PCR) Not Detected CSF HHV 6 (PCR) Not Detected CSF L.monocytogenes PCR Not Detected CSF N. meningitidis PCR Not Detected CSF Parechovirus (PCR) Not Detected CSF S. agalactiae (PCR) Not Detected CSF S. pneumoniae (PCR) Not Detected CSF VZV (PCR) Not Detected T.pallidum Ab (EIA) HIV 1&2 Ab/P24 Ag 4thGn Imaging Radiology Impressions: ITS Impressions Chest X-Ray 03/23/23 14:20 IMPRESSION: Findings suggest bilateral basilar infiltrates left greater than right and possible right midlung subtle infiltrate. Follow-up recommended. No failure or effusion Head CT 03/23/23 18:49 IMPRESSION: No acute intracranial pathology. Chest CT 03/23/23 21:01 IMPRESSION: 1. Marked gibson emphysematous change of lungs. 2. Chronic bronchial wall thickening and left perihilar density extending into the left upper lobe. This is worse since prior CAT scan of 07/28/2022. Left hilum is prominent but unchanged in appearance since the CAT scan of 07/28/2022. Difficult to assess left edaurd without IV contrast. Fleischner guidelines were followed. Abdomen Ultrasound 03/24/23 10:00 IMPRESSION: Limited visualization of the pancreas otherwise unremarkable exam. Brain MRI 03/26/23 11:06 IMPRESSION: 1. No acute intracranial abnormalities. 2. Mild underlying microangiopathy. Small chronic lacunar infarct of the left cerebellar hemisphere. Mental Status Exam Mental Status Exam Narrative: lying in bed in [place], unable to cooperate with interview. no PMA/PMR. awake and alert, but unable to provide answers to questions, responding either with non-sequiturs or not at all. disorganized thoughts. speech nml rate, decr amount, nml loudness, incr latency. affect constricted, normo-intense, non-labile. unable to assess mood or safety. no behaviors consistent with AVH. Medications Medications Current Medications Acetaminophen (Acetaminophen 325 Mg Tablet) 650 mg PO Q6H PRN PRN Reason: Pain, Mild (Pain Scale 1-3) Last Admin: 03/24/23 12:01 Dose: 650 mg Al Hydroxide/Mg Hydroxide (Magnesium Hydrox/Alum Hydrox 30 Ml Oral.Susp) 30 ml PO Q4H PRN PRN Reason: indigestion Last Admin: 03/27/23 20:08 Dose: 30 ml Albuterol/Ipratropium (Albuterol/Iprat 2.5/0.5mg 3 Ml Ampul.Neb) 3 ml INHALE RQ4H WHILE AWAKE [facility] Last Admin: 03/29/23 15:38 Dose: 3 ml Albuterol/Ipratropium (Albuterol/Iprat 2.5/0.5mg 3 Ml Ampul.Neb) 3 ml INHALE RQ4H PRN PRN Reason: Wheezing Last Admin: 03/24/23 19:01 Dose: 3 ml Atorvastatin Calcium (Atorvastatin Calcium 20 Mg Tablet) 20 mg PO BEDTIME [facility] Last Admin: 03/28/23 20:26 Dose: 20 mg Enoxaparin Sodium (Enoxaparin Sodium 40 Mg/0.4 Ml Syringe) 40 mg SUBCUT Q24H [facility] Last Admin: 03/28/23 22:15 Dose: 40 mg Fluticasone Propionate (Fluticasone Propionate Nasal 16 Gm [place]) 1 spray NOSTRIL-B BID [facility] Last Admin: 03/29/23 07:57 Dose: 1 spray Fluticasone/Vilanterol (Fluticasone/Vilanterol 200/25 Blst.W.Dev) 1 puff INHALE RDAILY [facility] Last Admin: 03/29/23 07:41 Dose: 1 puff Acyclovir Sodium 500 mg/ (Sodium Chloride) 110 mls @ 110 mls/hr IV Q8H [facility] Levothyroxine Sodium (Levothyroxine Sodium 88 Mcg Tablet) 88 mcg PO DAILY@0600 [facility] Meclizine HCl (Meclizine Hcl 25 Mg Tablet) 25 mg PO Q8H PRN PRN Reason: dizziness Melatonin (Melatonin 3 Mg Tablet) 6 mg PO BEDTIME PRN PRN Reason: Insomnia Last Admin: 03/28/23 22:15 Dose: 6 mg Omeprazole (Omeprazole 20 Mg Capsule.Dr) 20 mg PO DAILY@0630 [facility] Last Admin: 03/29/23 05:29 Dose: 20 mg Ondansetron HCl (Ondansetron Hcl 4 Mg/2 Ml Vial) 4 mg IVPUSH Q8H PRN PRN Reason: Nausea and Vomiting Last Admin: 03/28/23 20:26 Dose: 4 mg Pharmacy Consult (Consult Rx Perform Med Rec) 1 each MISCELLANE ONCE PRN PRN Reason: Consult order Prednisone (Prednisone 20 Mg Tablet) 40 mg PO DAILY [facility] Last Admin: 03/29/23 07:58 Dose: 40 mg Sertraline HCl (Sertraline Hcl 50 Mg Tablet) 50 mg PO DAILY [facility] Last Admin: 03/28/23 09:50 Dose: 50 mg Sodium Chloride (0.9 % Sodium Chloride Flush 3 Ml Syringe) 3 ml IVFLUSH QSHIFT [facility] Last Admin: 03/29/23 16:15 Dose: Not Given Allergies Allergies Allergy/AdvReac Type Severity Reaction Status Date / Time carvedilol Allergy Unknown chest Verified 01/31/23 13:14 tighness,sob,difficulty breathing lorazepam [Ativan] Allergy Unknown affects Verified 01/31/23 13:14 psychy Assessment & Plan Assessment & Plan (1) Altered mental status: Status: Acute Code(s): R41.82 - Altered mental status, unspecified Plan 5-HT syndrome is unlikely in this patient due to her having only been on one serotonergic medication and that despite some clonus and AMS, there is no autonomic instability. in any case, the picture here is murky and in the grand scheme of things holding sertraline until pt's mental status is able to be returned to normal and her medical conditions are stabilized is a low-risk and potentially extremely high reward proposition in the event my hypothesis is incorrect. i would continue to hold sertraline until pt's mental status is at baseline and her medical conditions are stabilized. Total time managing care of this patient today ____ minutes.
[2023-03-29] MEDS: Lactated Ringers 1,000 ML 80 ML IVCONT (20:24)
[2023-03-29] MEDS: Atorvastatin Calcium 20 MG TABLET PO (20:25)
[2023-03-29] MEDS: 0.9 % Sodium Chloride Flush 3 ML SYRINGE IVFLUSH (20:25)
[2023-03-30] VITALS (8 sets, daily range): BP systolic 104–169; BP diastolic 60–76; PULSE 71–119; RESP 17–20; TEMP 36.1–37.1; O2SAT 93–98
[2023-03-30] MEDS: Omeprazole 20 MG CAPSULE.DR PO (05:40)
[2023-03-30] MEDS: Levothyroxine Sodium 88 MCG TABLET PO (05:40)
[2023-03-30 06:17] LABS: Hematocrit 37.7 % (37.0-47.0); Hemoglobin 12.7 g/dl (12.0-16.0); Mean Corpuscular HGB Conc 33.7 g/dl (31.0-35.0); Mean Corpuscular Hemoglobin 30.8 pg (27.0-33.0); Mean Corpuscular Volume 91.5 fL (80.0-98.0); Mean Platelet Volume 8.8 fL (9.4-12.3); Platelet Count 406 X10*3/uL (160-400); Red Blood Count 4.12 X10*6/uL (4.20-5.50); Red Cell Distribution Width 12.1 % (11.0-16.0); White Blood Count 12.1 X10*3/uL (4.8-10.8)
[2023-03-30 06:37] LABS: Anion Gap 9 (12-20); Blood Urea Nitrogen 7 mg/dL (9-16); Calcium 9.1 mg/dL (8.4-10.2); Carbon Dioxide 31 mmol/L (22-29); Chloride 100 mmol/L (96-108); Creatinine Clr Calc Pharmacy 87.3; Estimated Glomerular Filt Rate > 60; Glucose Random 96 mg/dL (60-115); Potassium 4.2 mmol/L (3.3-5.1); Sodium 136 mmol/L (135-145)
[2023-03-30] MEDS: Fluticasone Propionate Nasal 16 GM SPRAY 1 SPRAY NOSTRIL-B ×2 (07:55→20:29)
[2023-03-30] MEDS: predniSONE 20 MG TABLET 40 MG PO (07:56)
[2023-03-30] MEDS: Albuterol/Iprat 2.5/0.5MG 3 ML AMPUL.NEB INHALE (08:35)
[2023-03-30] MEDS: Fluticasone/Vilanterol 200/25 BLST.W.DEV 1 PUFF INHALE (08:35)
[2023-03-30 09:24] LABS: Erythrocyte Sedimentation Rate 3 MM/HR (0-20)
--- NOTE | 2023-03-30 10:32 | MHC.CM.PN ---
EMR reviewed and per MD rounds, pt will need continued evaluation for neurological concerns, and is not medically cleared for D/C today. Pt will need STR upon D/C, Robyn zuñiga to accept pt when medically cleared. CM will continue to follow for D/C.
--- NOTE | 2023-03-30 11:06 | HO.POSTANES ---
Post Anesthesia Evaluation Post Anesthesia Evaluation Date of Service: 03/30/23 Vital Signs: Vital Signs Temp Pulse Resp BP Pulse Ox O2 Del Method O2 Flow Rate 03/30/23 08:38 90 20 03/30/23 07:53 98.7 F 74 17 136/62 97 Nasal Cannula 2 03/30/23 04:05 98.3 F 119 H 18 169/76 H 93 Nasal Cannula 2 03/30/23 03:41 97.2 F 71 18 129/71 98 Nasal Cannula 2 03/29/23 23:33 97.2 F 88 18 130/82 96 Nasal Cannula 2 Anesthesia: Monitored Mental Status: Awake Pain Control: Satisfactory Nausea/Vomiting: None Hydration: Adequate Anesthesia-Related Issues: No Anes. Related Issues
--- NOTE | 2023-03-30 14:28 | P.PNIM_ITS ---
Subjective Subjective Date of Service: 03/30/23 Interval History: twitching movements + nystagmus continues awake + alert denies headache or neck pain no fever Review of Systems Review of Systems: Yes all other systems are reviewed and are negative Physical Exam Vital Signs: Vital Signs: Last Vital Signs Temp 97.7 F 03/30/23 11:33 Pulse 94 03/30/23 11:33 Resp 18 03/30/23 11:33 BP 110/73 03/30/23 11:33 Pulse Ox 95 03/30/23 11:33 O2 Del Method Nasal Cannula 03/30/23 11:33 O2 Flow Rate 2 03/30/23 11:33 Oxygen Flow Rate 2 03/23/23 12:10 BMI result Body Mass Index 25.4 Gen: in no acute distress HEENT: sclera anicteric, moist mucus membranes Neck: supple Lungs: clear to auscultation bilaterally Heart: regular rate and rhythm, no murmurs Abd: soft, non-tender, non-distended Ext: no edema Skin: warm/well-perfused Neuro: alert and oriented x3, generalized twitching movements, clonus, nystagmus Psych: appropriate affect Objective Data Active Medications Acetaminophen (Acetaminophen 325 Mg Tablet) 650 mg PO Q6H PRN PRN Reason: Pain, Mild (Pain Scale 1-3) Last Admin: 03/24/23 12:01 Dose: 650 mg Documented By: JACK Al Hydroxide/Mg Hydroxide (Magnesium Hydrox/Alum Hydrox 30 Ml Oral.Susp) 30 ml PO Q4H PRN PRN Reason: indigestion Last Admin: 03/27/23 20:08 Dose: 30 ml Documented By: DO Albuterol/Ipratropium (Albuterol/Iprat 2.5/0.5mg 3 Ml Ampul.Neb) 3 ml INHALE RQ4H WHILE AWAKE [facility] Last Admin: 03/30/23 11:37 Dose: Not Given Documented By: REINALDO Non-Admin Reason: Patient Asleep Albuterol/Ipratropium (Albuterol/Iprat 2.5/0.5mg 3 Ml Ampul.Neb) 3 ml INHALE RQ4H PRN PRN Reason: Wheezing Last Admin: 03/24/23 19:01 Dose: 3 ml Documented By: RADHA Atorvastatin Calcium (Atorvastatin Calcium 20 Mg Tablet) 20 mg PO BEDTIME [facility] Last Admin: 03/29/23 20:25 Dose: 20 mg Documented By: STEFANIE Enoxaparin Sodium (Enoxaparin Sodium 40 Mg/0.4 Ml Syringe) 40 mg SUBCUT Q24H [facility] Last Admin: 03/28/23 22:15 Dose: 40 mg Documented By: STEFANIE Fluticasone Propionate (Fluticasone Propionate Nasal 16 Gm [place]) 1 spray NOSTRIL-B BID [facility] Last Admin: 03/30/23 07:55 Dose: 1 spray Documented By: REBEKA Fluticasone/Vilanterol (Fluticasone/Vilanterol 200/25 Blst.W.Dev) 1 puff INHALE RDAILY [facility] Last Admin: 03/30/23 08:35 Dose: 1 puff Documented By: REINALDO Acyclovir Sodium 500 mg/ (Sodium Chloride) 110 mls @ 110 mls/hr IV Q8H [facility] Last Infusion: 03/30/23 12:02 Dose: 0 mls/hr Documented By: REBEKA Lactated Ringer's (Lr) 1,000 mls @ 80 mls/hr IVCONT .[id number] [facility] Last Admin: 03/29/23 20:24 Dose: 80 mls/hr Documented By: STEFANIE Levothyroxine Sodium (Levothyroxine Sodium 88 Mcg Tablet) 88 mcg PO DAILY@0600 [facility] Last Admin: 03/30/23 05:40 Dose: 88 mcg Documented By: STEFANIE Meclizine HCl (Meclizine Hcl 25 Mg Tablet) 25 mg PO Q8H PRN PRN Reason: dizziness Melatonin (Melatonin 3 Mg Tablet) 6 mg PO BEDTIME PRN PRN Reason: Insomnia Last Admin: 03/28/23 22:15 Dose: 6 mg Documented By: STEFANIE Omeprazole (Omeprazole 20 Mg Capsule.) 20 mg PO DAILY@0630 [facility] Last Admin: 03/30/23 05:40 Dose: 20 mg Documented By: STEFANIE Ondansetron HCl (Ondansetron Hcl 4 Mg/2 Ml Vial) 4 mg IVPUSH Q8H PRN PRN Reason: Nausea and Vomiting Last Admin: 03/28/23 20:26 Dose: 4 mg Documented By: STEFANIE Pharmacy Consult (Consult Rx Perform Med Rec) 1 each MISCELLANE ONCE PRN PRN Reason: Consult order Prednisone (Prednisone 20 Mg Tablet) 40 mg PO DAILY [facility] Last Admin: 03/30/23 07:56 Dose: 40 mg Documented By: REBEKA Sertraline HCl (Sertraline Hcl 50 Mg Tablet) 50 mg PO DAILY [facility] Last Admin: 03/28/23 09:50 Dose: 50 mg Documented By: SAV Sodium Chloride (0.9 % Sodium Chloride Flush 3 Ml Syringe) 3 ml IVFLUSH QSHIFT [facility] Last Admin: 03/30/23 07:57 Dose: Not Given Documented By: REBEKA Non-Admin Reason: IV Running Labs 03/30/23 05:49 03/30/23 05:49 Labs: Laboratory Results - last 24 hr 03/29/23 03/29/23 03/29/23 09:42 13:30 13:30 MCV MCH MCHC RDW Plt Count MPV Absolute Nucleated RBC Nucleated RBC % (auto) ESR Anion Gap Estim Creat Clear Calc Estimated GFR Random Glucose Calcium C-Reactive Protein < 0.10 Procalcitonin 0.52 CSF Tube Number 1 4 CSF Volume 2.0 CSF Appearance CLEAR CSF Color COLORLESS CSF WBC 21 H* CSF RBC 1 CSF Lymphocytes 99 CSF Monocytes % 1 CSF Appearance (b) Clear, Colorless CSF Glucose 66 CSF Total Protein 63.6 H CSF C.neoform/gat PCR CSF CMV DNA (PCR) CSF Enterovirus (PCR) CSF E. coli K1 (PCR) CSF H. influenzae (PCR) CSF HSV I (PCR) CSF HSV II (PCR) CSF HHV 6 (PCR) CSF L.monocytogenes PCR CSF N. meningitidis PCR CSF Parechovirus (PCR) CSF S. agalactiae (PCR) CSF S. pneumoniae (PCR) CSF VZV (PCR) 03/29/23 03/30/23 03/30/23 13:44 05:49 05:49 MCV 91.5 MCH 30.8 MCHC 33.7 RDW 12.1 Plt Count 406 H MPV 8.8 L Absolute Nucleated RBC 0.000 Nucleated RBC % (auto) 0.0 ESR 3 Anion Gap Estim Creat Clear Calc Estimated GFR Random Glucose Calcium C-Reactive Protein Procalcitonin CSF Tube Number CSF Volume CSF Appearance CSF Color CSF WBC CSF RBC CSF Lymphocytes CSF Monocytes % CSF Appearance (b) CSF Glucose CSF Total Protein CSF C.neoform/gat PCR Not Detected CSF CMV DNA (PCR) Not Detected CSF Enterovirus (PCR) Not Detected CSF E. coli K1 (PCR) Not Detected CSF H. influenzae (PCR) Not Detected CSF HSV I (PCR) Not Detected CSF HSV II (PCR) Not Detected CSF HHV 6 (PCR) Not Detected CSF L.monocytogenes PCR Not Detected CSF N. meningitidis PCR Not Detected CSF Parechovirus (PCR) Not Detected CSF S. agalactiae (PCR) Not Detected CSF S. pneumoniae (PCR) Not Detected CSF VZV (PCR) Not Detected 03/30/23 05:49 MCV MCH MCHC RDW Plt Count MPV Absolute Nucleated RBC Nucleated RBC % (auto) ESR Anion Gap 9 L Estim Creat Clear Calc 87.3 Estimated GFR > 60 Random Glucose 96 Calcium 9.1 C-Reactive Protein Procalcitonin CSF Tube Number CSF Volume CSF Appearance CSF Color CSF WBC CSF RBC CSF Lymphocytes CSF Monocytes % CSF Appearance (b) CSF Glucose CSF Total Protein CSF C.neoform/gat PCR CSF CMV DNA (PCR) CSF Enterovirus (PCR) CSF E. coli K1 (PCR) CSF H. influenzae (PCR) CSF HSV I (PCR) CSF HSV II (PCR) CSF HHV 6 (PCR) CSF L.monocytogenes PCR CSF N. meningitidis PCR CSF Parechovirus (PCR) CSF S. agalactiae (PCR) CSF S. pneumoniae (PCR) CSF VZV (PCR) Microbiology Microbiology Results: Microbiology 03/29/23 13:30 Gram Stain - Final Cerebrospinal Fluid CSF Examination - Final Fluid Description - Final CSF Culture - Preliminary No growth after 1 day Assessment and Plan (1) Dizziness: Status: Acute Plan hosp d#7 63yo F with COPD + chronic hypoxic resp failure on 2L O2, HOCM, GERD, HTN, HLD, hypothyroidism, seasonal allergy presented with generalized weakness, dizziness, and confusion admitted for AMS # twitching movements, dizziness, vertigo # encephalopathy, acute - MRI neg for acute or subacute stroke, showing chronic lacunar infarct - EEG per Dr Horvath: Diffuse slowing with some frontal triphasic waves consistent with metabolic encephalopathy. No seizure discharges. - pCO2 normal, ammonia normal after 1 dose of lactulose, normal LFTs + normal renal function - hold sertraline though not on any other medications that would contribute to serotonin syndrome - LP done, CSF shows elevated protein to 64, lymphocytic pleocytosis with 21 WBCs, 99% lymphs. PCR panel negative but started on acyclovir empirically 03/29. ID consult pending. Also pending: serum + CSF Lyme, oligoclonal bands, immunofixation. HIV + T. palldium negative - meclizine for component of vertigo # acute COPD exac with possible PNA - CT of chest showed chronic bronchial wall thickening and left perihilar density extending into the left upper lobe, worse than prior CT on 07/28/2022 - seen by Pulmonology - rec breathing treatments, Solu-medrol 1-2 days then prednisone 40 mg for 5 days, ceftriaxone for 5 days completed - continue Breo, prn neb treatments # UTI - completed 5d ceftriaxone # chronic hypoxic RF - home O2 2L # N/V - resolved # hypoNa, mild - resolved # GERD - continue PPI # HLD - continue statin # hypothyroidism - TSH over-suppressed; LT4 dose decreased # depression - sertraline held as above # VTE ppx: LMWH # dispo - eventual STR In my clinical judgment, the patient requires continued inpatient hospitalization for the following reasons: neurological workup Time Spent With Patient Time: Total time managing care of this patient today _45___ minutes. Quality Stroke Does the patient have a stroke diagnosis?: No VTE Prior VTE?: No VTE Risk Level:: Medical - moderate - high VTE Device Contraindication: Treatment Not Indicated VTE Drug Contraindication: N/A - Med Ordered
[2023-03-30] MEDS: Lactated Ringers 1,000 ML 80 ML IVCONT (20:25)
[2023-03-30] MEDS: Melatonin 3 MG TABLET 6 MG PO (20:25)
[2023-03-30] MEDS: Atorvastatin Calcium 20 MG TABLET PO (20:25)
[2023-03-31] VITALS (7 sets, daily range): BP systolic 118–145; BP diastolic 64–83; PULSE 73–90; RESP 17–22; TEMP 35.9–37.1; O2SAT 95–97
[2023-03-31] MEDS: 0.9 % Sodium Chloride Flush 3 ML SYRINGE IVFLUSH ×3 (00:15→16:06)
[2023-03-31] MEDS: Omeprazole 20 MG CAPSULE.DR PO (06:34)
[2023-03-31] MEDS: Levothyroxine Sodium 88 MCG TABLET PO (06:34)
[2023-03-31 07:31] LABS: Hematocrit 37.3 % (37.0-47.0); Hemoglobin 12.7 g/dl (12.0-16.0); Mean Corpuscular Hemoglobin 30.6 pg (27.0-33.0); Mean Corpuscular Volume 89.9 fL (80.0-98.0); Mean Platelet Volume 8.9 fL (9.4-12.3); Platelet Count 420 X10*3/uL (160-400); Red Blood Count 4.15 X10*6/uL (4.20-5.50); Red Cell Distribution Width 12.2 % (11.0-16.0); White Blood Count 13.1 X10*3/uL (4.8-10.8)
[2023-03-31 07:51] LABS: Anion Gap 10 (12-20); Blood Urea Nitrogen 10 mg/dL (9-16); Calcium 8.5 mg/dL (8.4-10.2); Carbon Dioxide 30 mmol/L (22-29); Chloride 101 mmol/L (96-108); Creatinine Clr Calc Pharmacy 77.1; Estimated Glomerular Filt Rate > 60; Glucose Random 95 mg/dL (60-115); Potassium 3.7 mmol/L (3.3-5.1); Sodium 137 mmol/L (135-145)
[2023-03-31] MEDS: Albuterol/Iprat 2.5/0.5MG 3 ML AMPUL.NEB INHALE (07:59)
[2023-03-31] MEDS: Fluticasone Propionate Nasal 16 GM SPRAY 1 SPRAY NOSTRIL-B ×2 (10:27→19:32)
[2023-03-31] MEDS: Lactated Ringers 1,000 ML 80 ML IVCONT (10:27)
[2023-03-31] MEDS: predniSONE 20 MG TABLET 40 MG PO (10:27)
--- NOTE | 2023-03-31 10:27 | MHC.CM.PN ---
EMR reviewed and per MD rounds, pt is not yet medically cleared for D/C due to continued need for neurological assessment/evaluation. CM will continue to follow for D/C.
[2023-03-31] MEDS: Carbamide Peroxide 6.5% Otic 15 ML DRPBTL 5 DROP EAR-BOTH ×2 (11:53→19:32)
--- NOTE | 2023-03-31 14:53 | HO.PM.IMPN ---
Subjective Subjective Date of Service: 03/31/23 Interval History: Awake but amnestic to events of yesterday Twitching movements of eyes, arms, and trunk continue No fever Good appetite Review of Systems Review of Systems: Yes all other systems are reviewed and are negative Physical Exam Vital Signs: Vital Signs: Last Vital Signs Temp 98.6 F 03/31/23 10:56 Pulse 90 03/31/23 10:56 Resp 20 03/31/23 10:56 BP 128/75 03/31/23 10:56 Pulse Ox 96 03/31/23 10:56 O2 Del Method Nasal Cannula 03/31/23 10:56 O2 Flow Rate 2 03/31/23 10:56 Oxygen Flow Rate 2 03/23/23 12:10 BMI result Body Mass Index 25.4 Gen: in no acute distress HEENT: sclera anicteric, moist mucus membranes Neck: supple Lungs: clear to auscultation bilaterally Heart: regular rate and rhythm, no murmurs Abd: soft, non-tender, non-distended Ext: no edema Skin: warm/well-perfused Neuro: alert and oriented x3, generalized twitching movements, clonus, nystagmus Psych: appropriate affect Objective Data Active Medications Acetaminophen (Acetaminophen 325 Mg Tablet) 650 mg PO Q6H PRN PRN Reason: Pain, Mild (Pain Scale 1-3) Last Admin: 03/24/23 12:01 Dose: 650 mg Documented By: JACK Al Hydroxide/Mg Hydroxide (Magnesium Hydrox/Alum Hydrox 30 Ml Oral.Susp) 30 ml PO Q4H PRN PRN Reason: indigestion Last Admin: 03/27/23 20:08 Dose: 30 ml Documented By: DO Atorvastatin Calcium (Atorvastatin Calcium 20 Mg Tablet) 20 mg PO BEDTIME [facility] Last Admin: 03/30/23 20:25 Dose: 20 mg Documented By: ARLINE Carbamide Peroxide (Carbamide Peroxide 6.5% Otic 15 Ml Drpbtl) 5 drop EAR-BOTH BID [facility] Stop: 04/04/23 10:26 Last Admin: 03/31/23 11:53 Dose: 5 drop Documented By: MONSE Enoxaparin Sodium (Enoxaparin Sodium 40 Mg/0.4 Ml Syringe) 40 mg SUBCUT Q24H [facility] Last Admin: 03/28/23 22:15 Dose: 40 mg Documented By: STEFANIE Fluticasone Propionate (Fluticasone Propionate Nasal 16 Gm [place]) 1 spray NOSTRIL-B BID [facility] Last Admin: 03/31/23 10:27 Dose: 1 spray Documented By: MONSE Fluticasone/Vilanterol (Fluticasone/Vilanterol 200/25 Blst.W.Dev) 1 puff INHALE RDAILY [facility] Last Admin: 03/31/23 07:59 Dose: Not Given Documented By: REINALDO Non-Admin Reason: See Note Acyclovir Sodium 500 mg/ (Sodium Chloride) 110 mls @ 110 mls/hr IV Q8H [facility] Last Infusion: 03/31/23 13:02 Dose: 110 mls/hr Documented By: MONSE Levothyroxine Sodium (Levothyroxine Sodium 88 Mcg Tablet) 88 mcg PO DAILY@0600 [facility] Last Admin: 03/31/23 06:34 Dose: 88 mcg Documented By: LUIGI Meclizine HCl (Meclizine Hcl 25 Mg Tablet) 25 mg PO Q8H PRN PRN Reason: dizziness Melatonin (Melatonin 3 Mg Tablet) 6 mg PO BEDTIME PRN PRN Reason: Insomnia Last Admin: 03/30/23 20:25 Dose: 6 mg Documented By: ARLINE Omeprazole (Omeprazole 20 Mg Capsule.Dr) 20 mg PO DAILY@0630 [facility] Last Admin: 03/31/23 06:34 Dose: 20 mg Documented By: LUIGI Ondansetron HCl (Ondansetron Hcl 4 Mg/2 Ml Vial) 4 mg IVPUSH Q8H PRN PRN Reason: Nausea and Vomiting Last Admin: 03/28/23 20:26 Dose: 4 mg Documented By: STEFANIE Pharmacy Consult (Consult Rx Perform Med Rec) 1 each MISCELLANE ONCE PRN PRN Reason: Consult order Prednisone (Prednisone 20 Mg Tablet) 40 mg PO DAILY [facility] Last Admin: 03/31/23 10:27 Dose: 40 mg Documented By: MONSE Sertraline HCl (Sertraline Hcl 50 Mg Tablet) 50 mg PO DAILY [facility] Last Admin: 03/28/23 09:50 Dose: 50 mg Documented By: SURISCKAVYA Sodium Chloride (0.9 % Sodium Chloride Flush 3 Ml Syringe) 3 ml IVFLUSH QSHIFT [facility] Last Admin: 03/31/23 11:55 Dose: 3 ml Documented By: MONSE Labs 03/31/23 06:42 03/31/23 06:42 Labs: Laboratory Results - last 24 hr 03/31/23 03/31/23 06:42 06:42 MCV 89.9 MCH 30.6 MCHC 34.0 RDW 12.2 Plt Count 420 H MPV 8.9 L Absolute Nucleated RBC 0.000 Nucleated RBC % (auto) 0.0 Anion Gap 10 L Estim Creat Clear Calc 77.1 Estimated GFR > 60 Random Glucose 95 Calcium 8.5 D Microbiology Microbiology Results: Microbiology 03/29/23 13:30 Gram Stain - Final Cerebrospinal Fluid CSF Examination - Final Fluid Description - Final CSF Culture - Preliminary No growth after 2 days Assessment and Plan (1) Dizziness: Status: Acute Plan hosp d#8 63yo F with COPD + chronic hypoxic resp failure on 2L O2, HOCM, GERD, HTN, HLD, hypothyroidism, seasonal allergy presented with generalized weakness, dizziness, and confusion admitted for AMS developed persistent twitching movements + clonus + nystagmus # twitching movements, clonus, nystagmus # dizziness, vertigo # encephalopathy, acute - MRI neg for acute or subacute stroke, showing chronic lacunar infarct. - EEG per Dr Horvath: Diffuse slowing with some frontal triphasic waves consistent with metabolic encephalopathy. No seizure discharges. - pCO2 normal, ammonia normal after 1 dose of lactulose, normal LFTs + normal renal function - hold sertraline though not on any other medications that would contribute to serotonin syndrome - LP done, CSF shows elevated protein to 64, lymphocytic pleocytosis with 21 WBCs, 99% lymphs. PCR panel negative but started on acyclovir empirically 03/29. ID consult pending. Also pending: serum + CSF Lyme, oligoclonal bands, immunofixation. HIV + T. palldium negative. Discussed again with Dr Burrows from Neuro who doubts this is a seizure disorder; will add CSF paraneoplastic antibody panel- [facility] send-out. Will repeat MRI but with contrast. - meclizine for component of vertigo # acute COPD exac with possible PNA - CT of chest showed chronic bronchial wall thickening and left perihilar density extending into the left upper lobe, worse than prior CT on 07/28/2022 - seen by Pulmonology - rec breathing treatments, Solu-medrol 1-2 days then prednisone 40 mg for 5 days, ceftriaxone for 5 days completed - continue Breo, prn neb treatments # UTI - completed 5d ceftriaxone # chronic hypoxic RF - home O2 2L # N/V - resolved # hypoNa, mild - resolved # GERD - continue PPI # HLD - continue statin # hypothyroidism - TSH over-suppressed; LT4 dose decreased # depression - sertraline held as above # VTE ppx: LMWH # dispo - eventual STR In my clinical judgment, the patient requires continued inpatient hospitalization for the following reasons: neurological workup Time Spent With Patient Time: Total time managing care of this patient today __50 __ minutes. Quality Stroke Does the patient have a stroke diagnosis?: No VTE Prior VTE?: No VTE Risk Level:: Medical - moderate - high VTE Device Contraindication: Treatment Not Indicated VTE Drug Contraindication: N/A - Med Ordered
--- NOTE | 2023-03-31 15:31 | PC.NURSE ---
@1300 this nurse entered the patient's room to remove damon catheter after collaborating with infection control nurse and attending physician. When this nurse discussed the procedure with pt's family members they refused, voicing concerns of the pt being unwilling to use bedpan, or purewick. This was communicated to above mentioned and damon remained in place for the remainder of shift.
[2023-03-31 15:37] LABS: CMV DNA PCR Qn Source BLOOD; CMV DNA Qn PCR NOT DETECTED Log IU/mL (NOT DETECTED); CMV DNA Qn Real Time PCR NOT DETECTED (NOT DETECTED)
[2023-03-31 17:49] LABS: Lyme Abs Screen <0.90 index
--- NOTE | 2023-03-31 18:23 | PC.NURSE ---
patient denies dizziness, visiting at bedside
[2023-03-31] MEDS: Atorvastatin Calcium 20 MG TABLET PO (19:32)
--- NOTE | 2023-03-31 22:24 | W.PM.IDCN ---
History of Present Illness Data of Consult Service Date: 03/31/23 Requesting physician: Shana Cotter Primary Care Provider: Bakari Lozano MD HPI Reason for consult: encephalopathy She presents to hospital with weakness and fatigue. She has COPD and dizziness for five days. She also has respiratory failure. She has no fever or chills. LP shows negative PCR HSV and VZV. MRI with contrast of brain unrevealing but some motion artifact. Review of Systems Review of Systems: Yes Unobtainable due to mental condition PMFSH Past Medical History Medical History COPD exacerbation Pulmonary nodule Respiratory failure with hypoxia Family History Family History Father HTN (hypertension) Diabetes CVD (cardiovascular disease) Mother Diabetes HTN (hypertension) Family history: reviewed and not pertinent Surgical History Surgical History History of cardiac cath History of skin graft Hx of eye surgery Social History Social History Household Members: Spouse Housing: House Do you presently have visiting nurse or other home services: No Alcohol intake: never Patient Tobacco Use Status: Former Tobacco user Quit Date: 8 years ago Years Smoked: 35+ Smoked in Last 30 Days: No Use of substances other than those prescribed or required for medical reasons: No Currently Displaying Signs/Symptoms of Drug Intoxication Withdrawal: No Have you been hit, kicked, punched, or otherwise hurt by someone within the past year? If so, by whom?: No Do you feel safe in your current relationship?: Yes Is there a partner from a previous relationship who is making you feel unsafe now?: No Are you made to feel afraid or neglected: No Advance Directives: Yes Advance Directives Information Provided: No Advance Directives on File: No Advance Directives Date on File: 03/24/23 Do you have thoughts of harming others: None Do you have a plan to hurt others: No Plan Recently lost weight without trying: No Eating poorly because of decreased appetite: No Nutrition Risks: No Nutritional Risk Patient : No : No Poor oral hygiene: No service: No Current occupational status: retired and disabled Meds Allergies Allergy/AdvReac Type Severity Reaction Status Date / Time carvedilol Allergy Unknown chest Verified 01/31/23 13:14 tighness,sob,difficulty breathing lorazepam [Ativan] Allergy Unknown affects Verified 01/31/23 13:14 psychy Active Medications: Current Medications Acetaminophen (Acetaminophen 325 Mg Tablet) 650 mg PO Q6H PRN PRN Reason: Pain, Mild (Pain Scale 1-3) Last Admin: 03/24/23 12:01 Dose: 650 mg Al Hydroxide/Mg Hydroxide (Magnesium Hydrox/Alum Hydrox 30 Ml Oral.Susp) 30 ml PO Q4H PRN PRN Reason: indigestion Last Admin: 03/27/23 20:08 Dose: 30 ml Atorvastatin Calcium (Atorvastatin Calcium 20 Mg Tablet) 20 mg PO BEDTIME [facility] Last Admin: 03/31/23 19:32 Dose: 20 mg Carbamide Peroxide (Carbamide Peroxide 6.5% Otic 15 Ml Drpbtl) 5 drop EAR-BOTH BID [facility] Stop: 04/04/23 10:26 Last Admin: 03/31/23 19:32 Dose: 5 drop Enoxaparin Sodium (Enoxaparin Sodium 40 Mg/0.4 Ml Syringe) 40 mg SUBCUT Q24H [facility] Last Admin: 03/28/23 22:15 Dose: 40 mg Fluticasone Propionate (Fluticasone Propionate Nasal 16 Gm [place]) 1 spray NOSTRIL-B BID [facility] Last Admin: 03/31/23 19:32 Dose: 1 spray Fluticasone/Vilanterol (Fluticasone/Vilanterol 200/25 Blst.W.Dev) 1 puff INHALE RDAILY [facility] Last Admin: 03/31/23 07:59 Dose: Not Given Acyclovir Sodium 500 mg/ (Sodium Chloride) 110 mls @ 110 mls/hr IV Q8H [facility] Last Infusion: 03/31/23 19:27 Dose: Infused Levothyroxine Sodium (Levothyroxine Sodium 88 Mcg Tablet) 88 mcg PO DAILY@0600 [facility] Last Admin: 03/31/23 06:34 Dose: 88 mcg Meclizine HCl (Meclizine Hcl 25 Mg Tablet) 25 mg PO Q8H PRN PRN Reason: dizziness Melatonin (Melatonin 3 Mg Tablet) 6 mg PO BEDTIME PRN PRN Reason: Insomnia Last Admin: 03/30/23 20:25 Dose: 6 mg Omeprazole (Omeprazole 20 Mg Capsule.Dr) 20 mg PO DAILY@0630 [facility] Last Admin: 03/31/23 06:34 Dose: 20 mg Ondansetron HCl (Ondansetron Hcl 4 Mg/2 Ml Vial) 4 mg IVPUSH Q8H PRN PRN Reason: Nausea and Vomiting Last Admin: 03/28/23 20:26 Dose: 4 mg Pharmacy Consult (Consult Rx Perform Med Rec) 1 each MISCELLANE ONCE PRN PRN Reason: Consult order Prednisone (Prednisone 20 Mg Tablet) 40 mg PO DAILY [facility] Stop: 04/02/23 09:01 Last Admin: 03/31/23 10:27 Dose: 40 mg Sertraline HCl (Sertraline Hcl 50 Mg Tablet) 50 mg PO DAILY [facility] Last Admin: 03/28/23 09:50 Dose: 50 mg Sodium Chloride (0.9 % Sodium Chloride Flush 3 Ml Syringe) 3 ml IVFLUSH QSHIFT [facility] Last Admin: 03/31/23 16:06 Dose: 3 ml Home Medications Medication Instructions Recorded Confirmed Last Taken Type levothyroxine 100 mcg tablet 100 mcg PO DAILY@0600 09/21/20 03/24/23 03/23/23 History sertraline 50 mg tablet 50 mg PO DAILY 09/21/20 03/24/23 03/23/23 History simvastatin 40 mg tablet 40 mg PO BEDTIME 09/21/20 03/24/23 03/23/23 History albuterol sulfate 2.5 mg/3 mL 2.5 mg inhalation Q6H PRN 11/10/21 03/24/23 Unknown History (0.083 %) solution for nebulization Shortness Of Breath Or Wheezing pantoprazole 40 mg tablet,delayed 40 mg PO DAILY@0630 03/30/22 03/24/23 03/23/23 History release fluticasone propionate 50 1 spray intranasal BID 03/23/23 03/24/23 03/23/23 History mcg/actuation nasal spray,suspension ascorbic acid (vitamin C) 1,000 mg 1 g PO DAILY 03/24/23 03/24/23 03/23/23 History tablet (Vitamin C) cetirizine 10 mg tablet 10 mg PO DAILY PRN Allergic 03/24/23 03/24/23 Unknown History Symptoms cholecalciferol (vitamin D3) 25 25 mcg PO DAILY 03/24/23 03/24/23 03/23/23 History mcg (1,000 unit) tablet (Vitamin D3) prednisone 20 mg tablet 20 mg PO BID PRN copd exacerbation 03/24/23 03/24/23 Unknown History Physical Exam Vital Signs: Vital Signs: Last Vital Signs Temp 97.8 F 03/31/23 19:06 Pulse 81 03/31/23 19:06 Resp 17 03/31/23 19:06 BP 122/64 03/31/23 19:06 Pulse Ox 96 03/31/23 19:06 O2 Del Method Nasal Cannula 03/31/23 19:06 O2 Flow Rate 2 03/31/23 10:56 Oxygen Flow Rate 2 03/23/23 12:10 BMI result Body Mass Index 25.4 Neuro: Other: eyes with staccato lateral motion Results Labs 03/31/23 06:42 03/31/23 06:42 Labs: Short CBC 03/31/23 Range/Units 06:42 WBC 13.1 H (4.8-10.8) X10*3/uL Hgb 12.7 (12.0-16.0) g/dl Hct 37.3 (37.0-47.0) % Plt Count 420 H (160-400) X10*3/uL BMP 03/31/23 06:42 Sodium 137 Potassium 3.7 Chloride 101 Carbon Dioxide 30 H BUN 10 Creatinine 0.60 Calcium 8.5 D Microbiology Microbiology Results: Microbiology 03/29/23 13:30 Cerebrospinal Fluid Gram Stain - Final 03/29/23 13:30 Cerebrospinal Fluid CSF Examination - Final 03/29/23 13:30 Cerebrospinal Fluid Fluid Description - Final 03/29/23 13:30 Cerebrospinal Fluid CSF Culture - Preliminary No growth after 2 days 03/23/23 14:33 Blood - Venous Blood Culture - Final No growth after 5 days. 03/23/23 14:14 Blood - Venous Blood Culture - Final No growth after 5 days. 03/23/23 Unknown Urine clean catch - Urine kauffman top Urine Culture - Final Assessment and Plan (1) Altered mental status: Status: Acute She has encephalopathy with probable relation to underlying metabolic processes. She has no evidence of fever or MRI or LP indication of HSV encephalitis and has not improved with three days IV Acyclovir started on 03/29 so not HSV encephalitis or VZV encephalitis. It is early in season for West Nile encephalitis. (2) Dizziness: Status: Acute (3) Positional lightheadedness: Status: Acute (4) Nausea: Status: Acute Plan Would stop IV Acyclovir. Time Spent With Patient Time: Total time managing care of this patient today ____ minutes.
[2023-04-01] MEDS: 0.9 % Sodium Chloride Flush 3 ML SYRINGE IVFLUSH ×4 (00:02→19:57)
[2023-04-01 03:23] VITALS: BP 128/62; PULSE 73; RESP 20; TEMP 36.4; O2SAT 97
[2023-04-01 06:29] LABS: Hemoglobin 13.4 g/dl (12.0-16.0); Mean Corpuscular HGB Conc 33.5 g/dl (31.0-35.0); Mean Corpuscular Hemoglobin 29.8 pg (27.0-33.0); Mean Corpuscular Volume 89.1 fL (80.0-98.0); Mean Platelet Volume 8.7 fL (9.4-12.3); Platelet Count 422 X10*3/uL (160-400); Red Blood Count 4.49 X10*6/uL (4.20-5.50); Red Cell Distribution Width 12.3 % (11.0-16.0); White Blood Count 14.9 X10*3/uL (4.8-10.8)
[2023-04-01] MEDS: Omeprazole 20 MG CAPSULE.DR PO (06:37)
[2023-04-01] MEDS: Levothyroxine Sodium 88 MCG TABLET PO (06:37)
[2023-04-01 07:06] LABS: Anion Gap 11 (12-20); Blood Urea Nitrogen 9 mg/dL (9-16); Calcium 9.1 mg/dL (8.4-10.2); Carbon Dioxide 29 mmol/L (22-29); Chloride 103 mmol/L (96-108); Creatinine Clr Calc Pharmacy 79.7; Estimated Glomerular Filt Rate > 60; Glucose Random 84 mg/dL (60-115); Sodium 139 mmol/L (135-145)
[2023-04-01 07:52] VITALS: BP 136/77; PULSE 86; RESP 20; TEMP 36.8; O2SAT 95
--- NOTE | 2023-04-01 09:41 | P.PNIM_ITS ---
Subjective Subjective Date of Service: 04/01/23 Interval History: No fever No headache Movements continue Review of Systems Review of Systems: Yes all other systems are reviewed and are negative Physical Exam Vital Signs: Vital Signs: Last Vital Signs Temp 98.2 F 04/01/23 07:52 Pulse 86 04/01/23 07:52 Resp 20 04/01/23 07:52 BP 136/77 04/01/23 07:52 Pulse Ox 95 04/01/23 07:52 O2 Del Method Nasal Cannula 04/01/23 07:52 O2 Flow Rate 1 04/01/23 07:52 Oxygen Flow Rate 2 03/23/23 12:10 BMI result Body Mass Index 25.4 Gen: in no acute distress HEENT: sclera anicteric, moist mucus membranes Neck: supple Lungs: clear to auscultation bilaterally Heart: regular rate and rhythm, no murmurs Abd: soft, non-tender, non-distended Ext: no edema Skin: warm/well-perfused Neuro: alert and oriented x3, generalized twitching movements, clonus, nystagmus Psych: appropriate affect Objective Data Active Medications Acetaminophen (Acetaminophen 325 Mg Tablet) 650 mg PO Q6H PRN PRN Reason: Pain, Mild (Pain Scale 1-3) Last Admin: 03/24/23 12:01 Dose: 650 mg Documented By: JACK Al Hydroxide/Mg Hydroxide (Magnesium Hydrox/Alum Hydrox 30 Ml Oral.Susp) 30 ml PO Q4H PRN PRN Reason: indigestion Last Admin: 03/27/23 20:08 Dose: 30 ml Documented By: DO Atorvastatin Calcium (Atorvastatin Calcium 20 Mg Tablet) 20 mg PO BEDTIME [facility] Last Admin: 03/31/23 19:32 Dose: 20 mg Documented By: RHETT Carbamide Peroxide (Carbamide Peroxide 6.5% Otic 15 Ml Drpbtl) 5 drop EAR-BOTH BID [facility] Stop: 04/04/23 10:26 Last Admin: 03/31/23 19:32 Dose: 5 drop Documented By: RHETT Enoxaparin Sodium (Enoxaparin Sodium 40 Mg/0.4 Ml Syringe) 40 mg SUBCUT Q24H [facility] Last Admin: 03/28/23 22:15 Dose: 40 mg Documented By: STEFANIE Fluticasone Propionate (Fluticasone Propionate Nasal 16 Gm [place]) 1 spray NO STRIL-B BID [facility] Last Admin: 03/31/23 19:32 Dose: 1 spray Documented By: RHETT Fluticasone/Vilanterol (Fluticasone/Vilanterol 200/25 Blst.W.Dev) 1 puff INHALE RDAILY [facility] Last Admin: 04/01/23 07:48 Dose: Not Given Documented By: CARMEN Non-Admin Reason: pt unable to follow commands Levothyroxine Sodium (Levothyroxine Sodium 88 Mcg Tablet) 88 mcg PO DAILY@0600 [facility] Last Admin: 04/01/23 06:37 Dose: 88 mcg Documented By: AUGUSTINE Meclizine HCl (Meclizine Hcl 25 Mg Tablet) 25 mg PO Q8H PRN PRN Reason: dizziness Melatonin (Melatonin 3 Mg Tablet) 6 mg PO BEDTIME PRN PRN Reason: Insomnia Last Admin: 03/30/23 20:25 Dose: 6 mg Documented By: ARLINE Omeprazole (Omeprazole 20 Mg Capsule.Dr) 20 mg PO DAILY@0630 [facility] Last Admin: 04/01/23 06:37 Dose: 20 mg Documented By: AUGUSTINE Ondansetron HCl (Ondansetron Hcl 4 Mg/2 Ml Vial) 4 mg IVPUSH Q8H PRN PRN Reason: Nausea and Vomiting Last Admin: 03/28/23 20:26 Dose: 4 mg Documented By: STEFANIE Pharmacy Consult (Consult Rx Perform Med Rec) 1 each MISCELLANE ONCE PRN PRN Reason: Consult order Prednisone (Prednisone 20 Mg Tablet) 40 mg PO DAILY [facility] Stop: 04/02/23 09:01 Last Admin: 03/31/23 10:27 Dose: 40 mg Documented By: MONSE Sertraline HCl (Sertraline Hcl 50 Mg Tablet) 50 mg PO DAILY [facility] Last Admin: 03/28/23 09:50 Dose: 50 mg Documented By: SAV Sodium Chloride (0.9 % Sodium Chloride Flush 3 Ml Syringe) 3 ml IVFLUSH QSHIFT [facility] Last Admin: 04/01/23 00:02 Dose: 3 ml Documented By: AUGUSTINE Labs 04/01/23 05:52 04/01/23 05:52 Labs: Laboratory Results - last 24 hr 03/28/23 03/29/23 04/01/23 14:21 09:42 05:52 MCV 89.1 MCH 29.8 MCHC 33.5 RDW 12.3 Plt Count 422 H MPV 8.7 L Absolute Nucleated RBC 0.000 Nucleated RBC % (auto) 0.0 Anion Gap Estim Creat Clear Calc Estimated GFR Random Glucose Calcium Lyme Screen IgG & IgM <0.90 Lyme Progressive Test TNP CMV Specimen Source BLOOD CMV Qnt PCR IU/mL NOT DETECTED CMV Qnt PCR log IU/mL NOT DETECTED 04/01/23 05:52 MCV MCH MCHC RDW Plt Count MPV Absolute Nucleated RBC Nucleated RBC % (auto) Anion Gap 11 L Estim Creat Clear Calc 79.7 Estimated GFR > 60 Random Glucose 84 Calcium 9.1 D Lyme Screen IgG & IgM Lyme Progressive Test CMV Specimen Source CMV Qnt PCR IU/mL CMV Qnt PCR log IU/mL Microbiology Microbiology Results: Microbiology 03/29/23 13:30 Gram Stain - Final Cerebrospinal Fluid CSF Examination - Final Fluid Description - Final CSF Culture - Final No growth after 3 days. Assessment and Plan (1) Dizziness: Status: Acute Plan hosp d#9 63yo F with COPD + chronic hypoxic resp failure on 2L O2, HOCM, GERD, HTN, HLD, hypothyroidism, seasonal allergy presented with generalized weakness, dizziness, and confusion admitted for AMS developed persistent twitching movements + clonus + nystagmus # twitching movements, clonus, nystagmus # dizziness, vertigo # encephalopathy, acute - MRI neg for acute or subacute stroke, showing chronic lacunar infarct. - EEG per Dr Horvath: Diffuse slowing with some frontal triphasic waves consistent with metabolic encephalopathy. No seizure discharges. - pCO2 normal, ammonia normal after 1 dose of lactulose, normal LFTs + normal renal function - hold sertraline though not on any other medications that would contribute to serotonin syndrome - LP done, CSF shows elevated protein to 64, lymphocytic pleocytosis with 21 WBCs, 99% lymphs. PCR panel negative but started on acyclovir empirically 03/29. ID consult pending. Also pending: serum + CSF Lyme, oligoclonal bands, immunofixation. HIV + T. palldium negative. Discussed again with Dr Burrows from Neuro who doubts this is a seizure disorder; will add CSF paraneoplastic antibody panel- [facility] send-out. Repeat MRI with contrast unrevealing - meclizine for component of vertigo # acute COPD exac with possible PNA - CT of chest showed chronic bronchial wall thickening and left perihilar density extending into the left upper lobe, worse than prior CT on 07/28/2022 - seen by Pulmonology - rec breathing treatments, Solu-medrol 1-2 days then prednisone 40 mg for 5 days, ceftriaxone for 5 days completed - continue Breo, prn neb treatments # UTI - completed 5d ceftriaxone # chronic hypoxic RF - home O2 2L # N/V - resolved # hypoNa, mild - resolved # GERD - continue PPI # HLD - continue statin # hypothyroidism - TSH over-suppressed; LT4 dose decreased # depression - sertraline held as above # VTE ppx: LMWH # dispo - eventual STR In my clinical judgment, the patient requires continued inpatient hospitalization for the following reasons: neurological workup Time Spent With Patient Time: Total time managing care of this patient today __40__ minutes. Quality Stroke Does the patient have a stroke diagnosis?: No VTE Prior VTE?: No VTE Risk Level:: Medical - moderate - high VTE Device Contraindication: Treatment Not Indicated VTE Drug Contraindication: N/A - Med Ordered
[2023-04-01] MEDS: predniSONE 20 MG TABLET 40 MG PO (10:04)
[2023-04-01] MEDS: Carbamide Peroxide 6.5% Otic 15 ML DRPBTL 5 DROP EAR-BOTH ×2 (10:05→19:57)
[2023-04-01] MEDS: Fluticasone Propionate Nasal 16 GM SPRAY 1 SPRAY NOSTRIL-B ×2 (10:05→19:57)
[2023-04-01 11:07] VITALS: BP 149/90; PULSE 99; RESP 20; TEMP 36.3; O2SAT 96
[2023-04-01] MEDS: diazePAM 2 MG TABLET PO (15:15)
[2023-04-01 15:24] VITALS: BP 140/72; PULSE 87; RESP 18; TEMP 37; O2SAT 94
[2023-04-01] MEDS: iohexoL 350 MG/ML 100 ML INFUS..BTL IV (15:53)
[2023-04-01 19:17] VITALS: BP 119/82; PULSE 89; RESP 18; TEMP 36.6; O2SAT 97
[2023-04-01] MEDS: Atorvastatin Calcium 20 MG TABLET PO (19:57)
[2023-04-02] VITALS: BP 129/72; PULSE 78; RESP 18; TEMP 36.6; O2SAT 98
[2023-04-02 03:14] VITALS: BP 137/68; PULSE 79; RESP 18; TEMP 36.3; O2SAT 98
[2023-04-02] MEDS: Levothyroxine Sodium 88 MCG TABLET PO (06:35)
[2023-04-02] MEDS: Omeprazole 20 MG CAPSULE.DR PO (06:35)
[2023-04-02 06:40] LABS: Hematocrit 42.2 % (37.0-47.0); Hemoglobin 14.3 g/dl (12.0-16.0); Mean Corpuscular HGB Conc 33.9 g/dl (31.0-35.0); Mean Corpuscular Hemoglobin 30.7 pg (27.0-33.0); Mean Corpuscular Volume 90.6 fL (80.0-98.0); Mean Platelet Volume 8.6 fL (9.4-12.3); Platelet Count 433 X10*3/uL (160-400); Red Blood Count 4.66 X10*6/uL (4.20-5.50); Red Cell Distribution Width 12.6 % (11.0-16.0); White Blood Count 24.2 X10*3/uL (4.8-10.8)
[2023-04-02 06:50] LABS: Ammonia 41 umol/L (13-55)
[2023-04-02 07:04] LABS: Alanine Aminotransferase 29 U/L (0-31); Albumin Level 3.8 g/dL (3.5-5.0); Alkaline Phosphatase 67 U/L (39-117); Anion Gap 16 (12-20); Aspartate Amino Transferase 15 U/L (5-31); Bilirubin Total 0.7 mg/dL (0.0-1.0); Blood Urea Nitrogen 13 mg/dL (9-16); Calcium 9.4 mg/dL (8.4-10.2); Carbon Dioxide 28 mmol/L (22-29); Chloride 102 mmol/L (96-108); Estimated Glomerular Filt Rate > 60; Glucose Random 89 mg/dL (60-115); Potassium 4.2 mmol/L (3.3-5.1); Sodium 142 mmol/L (135-145); Total Protein 6.7 g/dL (6.5-8.0)
[2023-04-02 07:12] VITALS: BP 137/82; PULSE 107; RESP 20; TEMP 36.2; O2SAT 96
[2023-04-02 07:18] LABS: Thyroid Stimulating Hormone 1.13 uIU/mL (0.32-4.0)
[2023-04-02] MEDS: diazePAM 2 MG TABLET PO (07:25)
[2023-04-02] MEDS: Acetaminophen 325 MG TABLET 650 MG PO (07:25)
[2023-04-02] MEDS: Fluticasone Propionate Nasal 16 GM SPRAY 1 SPRAY NOSTRIL-B (07:25)
[2023-04-02] MEDS: Carbamide Peroxide 6.5% Otic 15 ML DRPBTL 5 DROP EAR-BOTH (07:25)
[2023-04-02] MEDS: 0.9 % Sodium Chloride Flush 3 ML SYRINGE IVFLUSH (07:26)
[2023-04-02] MEDS: predniSONE 20 MG TABLET 40 MG PO (07:26)
--- NOTE | 2023-04-02 10:32 | HO.PM.IMPN ---
Subjective Subjective Date of Service: 04/02/23 Interval History: Very anxious Ongoing opsoclonus Unable to get out of bed, very ataxic Review of Systems Review of Systems: Yes all other systems are reviewed and are negative Physical Exam Vital Signs: Vital Signs: Last Vital Signs Temp 97.2 F 04/02/23 07:12 Pulse 107 H 04/02/23 07:12 Resp 20 04/02/23 07:12 BP 137/82 04/02/23 07:12 Pulse Ox 96 04/02/23 07:12 O2 Del Method Nasal Cannula 04/02/23 07:12 O2 Flow Rate 2 04/02/23 07:12 Oxygen Flow Rate 2 03/23/23 12:10 BMI result Body Mass Index 25.4 Gen: anxious HEENT: sclera anicteric, moist mucus membranes Neck: supple Lungs: clear to auscultation bilaterally Heart: regular rate and rhythm, no murmurs Abd: soft, non-tender, non-distended Ext: no edema Skin: warm/well-perfused Neuro: alert, opsoclonus, myoclonus, FTN markedly impaired Psych: anxious Objective Data Active Medications Acetaminophen (Acetaminophen 325 Mg Tablet) 650 mg PO Q6H PRN PRN Reason: Pain, Mild (Pain Scale 1-3) Last Admin: 04/02/23 07:25 Dose: 650 mg Documented By: AELXANDRE Al Hydroxide/Mg Hydroxide (Magnesium Hydrox/Alum Hydrox 30 Ml Oral.Susp) 30 ml PO Q4H PRN PRN Reason: indigestion Last Admin: 03/27/23 20:08 Dose: 30 ml Documented By: DO Atorvastatin Calcium (Atorvastatin Calcium 20 Mg Tablet) 20 mg PO BEDTIME [facility] Last Admin: 04/01/23 19:57 Dose: 20 mg Documented By: JOSE ENRIQUE Carbamide Peroxide (Carbamide Peroxide 6.5% Otic 15 Ml Drpbtl) 5 drop EAR-BOTH BID KATLIN Stop: 04/04/23 10:26 Last Admin: 04/02/23 07:25 Dose: 5 drop Documented By: ALEXANDRE Diazepam (Diazepam 2 Mg Tablet) 2 mg PO TID PRN PRN Reason: agitation Last Admin: 04/02/23 07:25 Dose: 2 mg Documented By: ALEXANDRE Enoxaparin Sodium (Enoxaparin Sodium 40 Mg/0.4 Ml Syringe) 40 mg SUBCUT Q24H [facility] Last Admin: 03/28/23 22:15 Dose: 40 mg Documented By: STEFANIE Fluticasone Propionate (Fluticasone Propionate Nasal 16 Gm Armour) 1 spray NOSTRIL-B BID [facility] Last Admin: 04/02/23 07:25 Dose: 1 spray Documented By: ALEXANDRE Fluticasone/Vilanterol (Fluticasone/Vilanterol 200/25 Blst.W.Dev) 1 puff INHALE RDAILY [facility] Last Admin: 04/02/23 07:41 Dose: Not Given Documented By: CARMEN Non-Admin Reason: pt sleeping Levothyroxine Sodium (Levothyroxine Sodium 88 Mcg Tablet) 88 mcg PO DAILY@0600 [facility] Last Admin: 04/02/23 06:35 Dose: 88 mcg Documented By: JOSE ENRIQUE Meclizine HCl (Meclizine Hcl 25 Mg Tablet) 25 mg PO Q8H PRN PRN Reason: dizziness Melatonin (Melatonin 3 Mg Tablet) 6 mg PO BEDTIME PRN PRN Reason: Insomnia Last Admin: 03/30/23 20:25 Dose: 6 mg Documented By: ARLINE Omeprazole (Omeprazole 20 Mg Capsule.Dr) 20 mg PO DAILY@0630 [facility] Last Admin: 04/02/23 06:35 Dose: 20 mg Documented By: JOSE ENRIQUE Ondansetron HCl (Ondansetron Hcl 4 Mg/2 Ml Vial) 4 mg IVPUSH Q8H PRN PRN Reason: Nausea and Vomiting Last Admin: 03/28/23 20:26 Dose: 4 mg Documented By: STEFNAIE Pharmacy Consult (Consult Rx Perform Med Rec) 1 each MISCELLANE ONCE PRN PRN Reason: Consult order Sertraline HCl (Sertraline Hcl 50 Mg Tablet) 50 mg PO DAILY [facility] Last Admin: 03/28/23 09:50 Dose: 50 mg Documented By: SAV Sodium Chloride (0.9 % Sodium Chloride Flush 3 Ml Syringe) 3 ml IVFLUSH QSHIFT [facility] Last Admin: 04/02/23 07:26 Dose: 3 ml Documented By: ALEXANDRE Labs 04/02/23 06:32 04/02/23 06:32 Labs: Laboratory Results - last 24 hr 04/02/23 04/02/23 04/02/23 06:32 06:32 06:32 MCV 90.6 MCH 30.7 MCHC 33.9 RDW 12.6 Plt Count 433 H MPV 8.6 L Absolute Nucleated RBC 0.000 Nucleated RBC % (auto) 0.0 Anion Gap 16 Estim Creat Clear Calc 69.0 Estimated GFR > 60 Random Glucose 89 Calcium 9.4 Total Bilirubin 0.7 AST 15 ALT 29 Alkaline Phosphatase 67 Ammonia 41 Total Protein 6.7 Albumin 3.8 TSH 1.13 Microbiology Microbiology Results: Microbiology 03/29/23 13:30 Gram Stain - Final Cerebrospinal Fluid CSF Examination - Final Fluid Description - Final CSF Culture - Final No growth after 3 days. Assessment and Plan (1) Dizziness: Status: Acute Plan hosp d#[id number] 63yo F with COPD + chronic hypoxic resp failure on 2L O2, HOCM, GERD, HTN, HLD, hypothyroidism, seasonal allergy presented with generalized weakness, dizziness, and confusion admitted for AMS developed persistent twitching movements + clonus + nystagmus # twitching movements, clonus, opsoclonus vs nystagmus, ataxia # encephalopathy, acute - MRI neg for acute or subacute stroke, showing chronic lacunar infarct. - EEG per Dr Horvath: Diffuse slowing with some frontal triphasic waves consistent with metabolic encephalopathy. No seizure discharges. - pCO2 normal, ammonia normal after 1 dose of lactulose, normal LFTs + normal renal function - hold sertraline though not on any other medications that would contribute to serotonin syndrome - LP done, CSF shows elevated protein to 64, lymphocytic pleocytosis with 21 WBCs, 99% lymphs. PCR panel negative but started on acyclovir empirically 03/29. ID consult pending. Also pending: serum + CSF Lyme, oligoclonal bands, immunofixation. HIV + T. pallidum negative. Discussed again with Dr Horvath from Neuro who doubts this is a seizure disorder. Repeat MRI with contrast unrevealing. - I am concerned she has [id number] syndrome and have added CSF paraneoplastic antibody panel- [facility] send-out. The lab will call me tomorrow to ensure there is adequate CSF to run the test. Other tests ordered from serum pending: - JOHN - antiphospholipid antibody panel (B2GP, lupus anticoagulant) - anti-Yo - anti-Hu CT C/A/P 04/01/23 showed: A focal opacity of the posteromedial right upper lobe has developed a more nodular appearance than its linear appearance on 03/02/2022 and 07/28/2022; it has average diameter of 0.8 cm and due to interval increased prominence, follow-up evaluation is recommended To discuss with Heme/Onc. Also ill discuss with Dr Horvath whether transfer to tertiary care center might be indicated - meclizine for component of vertigo - start diazepam for anxiety # acute COPD exac with possible PNA - CT of chest showed chronic bronchial wall thickening and left perihilar density extending into the left upper lobe, worse than prior CT on 07/28/2022 - seen by Pulmonology - rec breathing treatments, Solu-medrol 1-2 days then prednisone 40 mg for 5 days, ceftriaxone for 5 days completed - continue Breo, prn neb treatments # UTI - completed 5d ceftriaxone # chronic hypoxic RF - home O2 2L # N/V - resolved # hypoNa, mild - resolved # GERD - continue PPI # HLD - continue statin # hypothyroidism - TSH over-suppressed; LT4 dose decreased # depression - sertraline held as above # VTE ppx: LMWH # dispo - eventual STR In my clinical judgment, the patient requires continued inpatient hospitalization for the following reasons: neurological workup Time Spent With Patient Time: Total time managing care of this patient today _55__ minutes. Quality Stroke Does the patient have a stroke diagnosis?: No VTE Prior VTE?: No VTE Risk Level:: Medical - moderate - high VTE Device Contraindication: Treatment Not Indicated VTE Drug Contraindication: N/A - Med Ordered
[2023-04-02] MEDS: diazePAM 2 MG TABLET 4 MG PO (10:49)
[2023-04-02 11:12] VITALS: BP 126/81; PULSE 92; RESP 20; TEMP 36.1; O2SAT 96
--- NOTE | 2023-04-02 12:30 | P.DS_ITS ---
DS: Providers Provider Date of Service: 04/02/23 Date of admission: 03/24/23 12:45 Primary care physician: Bakari Lozano MD Consults: 03/24/23 06:31 Consult to Pulmonology Routine Consulting Provider: [facility] Reason for consultation: left sided opacity 03/24/23 11:53 Consult to Neurology Routine Consulting Provider: [facility] Reason for consultation: dizziness, acute encephalopathy Has provider been notified: No 03/28/23 10:43 Consult to Psychiatry Routine Consulting Provider: Psych Covering Reason for consultation: clonus, ? medication related 03/29/23 16:13 Consult to Infectious Diseases Routine Consulting Provider: [facility] Reason for consultation: encephalitis ?HSV- starting acyclov DS: Diagnosis Discharge Diagnosis (1) Acute encephalopathy: Status: Acute (2) Gkodqovnzz-nzfqqobdc-vnfbdu syndrome: Status: Acute (3) COPD exacerbation: Status: Acute (4) Pneumonia: Status: Acute (5) Pulmonary nodule: Status: Acute DS: Summary Hospital Course Hospital Course: From admission H+P by hospitalist SAMI Bettencourt, 03/23/23: Pt is a 63-year-old female with a PMH significant for?chronic hypoxic respiratory failure on 2L NC, COPD, hypertrophic cardiomyopathy, GERD, HTN, HLD, hypothyroidism, and seasonal allergies who presents from home via EMS to the ED with?generalized weakness, confusion, and dizziness. Pt is alert and oriented to self and time. Pt's family is at beside who help supply HPI. Pt states symptoms began approximately 2 weeks ago when pt began having nausea, vomiting, body aches, chills, and decreased appetite.? Patient apparently could not keep much of anything down whether solids or liquids.? Patient also began developing dizziness she describes as ?the rooms spinning.?? Patient states she did fall once in her house yesterday, but denies loss of consciousness or head strike. Vomiting appears to have resolved by yesterday.? Patient's family states patient has been having acute altered mental status the especially noticed earlier today.? Patient has been having trouble with short-term memory and miss naming objects.? Patient has also been noted to have generalized weakness and family notes that today patient could not even get out of bed.? Patient denies abdominal pain, hematochezia, hematemesis.? Patient denies any cough, and complains of chronic SOB that remains unchanged from baseline. In the ED patient was afebrile but tachycardic up to 101, tachypneic up to 24, and satting at 98% on 2 L NC. Labs were significant for leukocytosis of 14.1, sodium of 131, chloride of 91.? Renal function baseline, hepatic function WNL.? UA negative for UTI. CXR showed bilateral basilar infiltrates with left greater than right and possible right mid lung infiltrate. CT?of head found no acute intracranial pathology.? CT of chest found marked pain and emphysematous change of the lungs with chronic bronchial wall thickening in left perihilar density extending to the left upper lobe which is worse than prior CT scan on 07/28/2022. EKG demonstrated normal sinus rhythm without evidence of ST elevations or depressions. Pt was treated with DuoNebs, IVF, ceftriaxone. Pt will be admitted to the hospital for treatment further evaluation of presyncope and altered mental status. Ms Daniel is a 63 year-old woman with COPD and chronic hypoxia on 2L O2 [followed by Dr Cunningham], hypertrophic cardiomyopathy [EF <10% in Jul 2018, recovered to 55% in April 2022; followed by [facility]], HTN, and hypothyroidism. She presented to the [facility] ED with worsening weakness, confusion, and vertigo over two weeks. Notably, she had nausea, vomiting, malaise, chills, and anorexia at the onset of this illness but these symptoms had largely resolved. She was initially admitted on 03/23 for COPD exacerbation and pneumonia. Vertigo persisted and she was clearly ataxic, prompting a non-contrast MRI on 03/26/23 that showed chronic microangiopathy and a chronic left cerebellar lacunar infarct, but no acute pathology. Due to worsening mental status and onset of myoclonic movements, Neurology was consulted. Sertraline was held due to delirium and clonus, though it should be noted that this was her only serotonergic medication and she had no autonomic instability. An EEG on 03/29/23 showed diffuse background slowing and some bifrontal triphasic waves, most consistent with a metabolic encephalopathy; no clear epileptiform discharges were seen. A lumbar puncture on 03/29/23 demonstrated elevated opening pressure of 15 cm H20. CSF protein was high at 63.6 and she had a lymphocytic pleocytosis with 21 WBCs, 99% lymphocytes [1 RBC]. She was started on empiric acyclovir. CSF meningoencephalitis PCR panel was negative, and acyclovir was discontinued. She was never febrile during her illness. A repeat MRI with contrast on 03/31/23 showed no abnormal parenchymal or leptomeningeal enhancement. Myoclonus worsened and she developed opsoclonus along with worsening mood lability and disorientation. I raised the concern of esqpoglnfb-ofakqkxgn-iymagr syndrome and initiated an autoimmune/paraneoplastic workup. I consulted Dr Jadile Marquez from [facility], who accepted the patient for transfer to their general neurology service for further workup and management. CT chest/abdomen/pelvis on 04/01/23 was notable for the finding of: A focal opacity of the posteromedial right upper lobe has developed a more nodular appearance than its linear appearance on 03/02/2022 and 07/28/2022; it has average diameter of 0.8 cm and due to interval increased prominence, follow-up evaluation is recommended . I added the [facility] CSF paraneoplastic antibody panel to the CSF studies but it is unclear yet whether there is adequate CSF to run the test. Other pending studies at the time of transfer are: 03/29/23: CSF IgG index, immunofixation, Lyme IgG/IgM, myelin basic protein, oligoclonal banding, protein electrophoresis, VDRL 04/02/23: serum anti-Yo and anti-Hu, beta-2 glycoprotein and cardiolipin antibodies plus lupus anticoagulant panel, JOHN with reflex titer/pattern, iPTH Other, resolved issues: 1. Acute COPD exacerbation. Treated with a 5-day course of methy lprednisolone/prednisone along with the usual nebulized bronchodilators. 2. Pneumonia. Treated with a 5-day course of IV ceftriaxone. Blood cultures negative. 3. Chronic hypoxic respiratory failure. On 2L of supplemental O2 via nasal cannula [id number]. 4. Hypothyroidism. TSH over-suppressed on presentation; levothyroxine dose decreased from 100 to 88 mcg daily. Time Spent with Patient Time attestation: Total time managing care of this patient today ___60_ minutes. Discharge coordination time: Greater than 30 minutes Quality: Safe Use of Opioids Does Pt have an Active Cancer Diagnosis on the Problem List?: No Quality: Stroke Does the patient have a stroke diagnosis?: No Physical Exam Vital Signs: Vital Signs: Last Vital Signs Temp 96.9 F 04/02/23 11:12 Pulse 92 04/02/23 11:12 Resp 20 04/02/23 11:12 BP 126/81 04/02/23 11:12 Pulse Ox 96 04/02/23 11:12 O2 Del Method Nasal Cannula 04/02/23 11:12 O2 Flow Rate 2 04/02/23 11:12 Oxygen Flow Rate 2 03/23/23 12:10 BMI result Body Mass Index 25.4 Gen: anxious, constant myoclonic movements HEENT: opsoclonus present Neck: supple Lungs: clear to auscultation bilaterally Heart: regular rate and rhythm, no murmurs Abd: soft, non-tender, non-distended Ext: no edema Skin: warm/well-perfused Neuro: alert and oriented to self and place, opsoclonus, myoclonus of trunk and bilateral upper extremities, marked dysmetria Psych: anxious, impaired insight DS: Data Data Completed and Pending Completed studies during hospitalization [Text1]: Laboratory Results WBC 24.2 X10*3/uL (4.8-10.8) H 04/02/23 06:32 RBC 4.66 X10*6/uL (4.20-5.50) 04/02/23 06:32 Hgb 14.3 g/dl (12.0-16.0) 04/02/23 06:32 Hct 42.2 % (37.0-47.0) 04/02/23 06:32 MCV 90.6 fL (80.0-98.0) 04/02/23 06:32 MCH 30.7 pg (27.0-33.0) 04/02/23 06:32 MCHC 33.9 g/dl (31.0-35.0) 04/02/23 06:32 RDW 12.6 % (11.0-16.0) 04/02/23 06:32 Plt Count 433 X10*3/uL (160-400) H 04/02/23 06:32 MPV 8.6 fL (9.4-12.3) L 04/02/23 06:32 Immature Gran % (Auto) 0.6 % (0.0-0.4) H 03/24/23 07:11 Neut % (Auto) 73.8 % (45-73) H 03/24/23 07:11 Lymph % (Auto) 14.9 % (20-40) L 03/24/23 07:11 Elliott % (Auto) 8.4 % (2-11) 03/24/23 07:11 Eos % (Auto) 1.7 % (0-4) 03/24/23 07:11 Baso % (Auto) 0.6 % (0-2) 03/24/23 07:11 Lymph # (Auto) 1.6 X10*3/uL (1.2-4.9) 03/24/23 07:11 Elliott # (Auto) 0.9 X10*3/uL (0.1-1.2) 03/24/23 07:11 Eos # (Auto) 0.2 X10*3/uL (0.0-0.4) 03/24/23 07:11 Baso # (Auto) 0.1 X10*3/uL (0.0-0.2) 03/24/23 07:11 Abs Immat Gran (auto) 0.06 X10*3/uL (0.00-0.03) H 03/24/23 07:11 Absolute Neuts (auto) 7.7 x10*3/uL (2.0-8.3) 03/24/23 07:11 Absolute Nucleated RBC 0.000 X10*3/uL (0.0-0.012) 04/02/23 06:32 Nucleated RBC % (auto) 0.0 /100WBC (0.0-0.2) 04/02/23 06:32 Smear Tech's Comments VERIFIED 03/23/23 14:14 ESR 3 MM/HR (0-20) 03/30/23 05:49 PT 12.0 SEC (10.0-13.1) 03/29/23 09:42 INR 1.0 (0.9-1.1) 03/29/23 09:42 APTT 25.6 SEC (26.0-36.4) L 03/29/23 09:42 VBG pH 7.51 (7.32-7.43) H 03/29/23 09:45 VBG pCO2 41 mmHg 03/29/23 09:45 VBG pO2 95 mmHg 03/29/23 09:45 VBG HCO3 33 mmol/L (22-26) H 03/29/23 09:45 VBG O2 Saturation 100.0 % 03/29/23 09:45 VBG Base Excess 9.6 mmol/L 03/29/23 09:45 Sodium 142 mmol/L (135-145) 04/02/23 06:32 Potassium 4.2 mmol/L (3.3-5.1) 04/02/23 06:32 Chloride 102 mmol/L (96-108) 04/02/23 06:32 Carbon Dioxide 28 mmol/L (22-29) 04/02/23 06:32 Anion Gap 16 (12-20) 04/02/23 06:32 BUN 13 mg/dL (9-16) 04/02/23 06:32 Creatinine 0.67 mg/dL (0.5-1.4) 04/02/23 06:32 Estim Creat Clear Calc 69.0 04/02/23 06:32 Estimated GFR > 60 04/02/23 06:32 POC Glucose 126 mg/dL (60-115) H 03/27/23 07:19 Random Glucose 89 mg/dL (60-115) 04/02/23 06:32 Lactic Acid 0.8 mmol/L (0.5-2.0) 03/28/23 11:19 Calcium 9.4 mg/dL (8.4-10.2) 04/02/23 06:32 Magnesium 2.3 mg/dL (1.6-2.6) 03/27/23 06:14 Total Bilirubin 0.7 mg/dL (0.0-1.0) 04/02/23 06:32 Direct Bilirubin 0.2 mg/dL (0.0-0.5) 03/23/23 14:14 AST 15 U/L (5-31) 04/02/23 06:32 ALT 29 U/L (0-31) 04/02/23 06:32 Alkaline Phosphatase 67 U/L (39-117) 04/02/23 06:32 Ammonia 41 umol/L (13-55) 04/02/23 06:32 Total Creatine Kinase 22 U/L (26-140) L 03/28/23 11:19 Troponin I High Sens 3.6 ng/L (<3.5-17.0) 03/23/23 14:33 C-Reactive Protein < 0.10 mg/dL (< or = 0.50) 03/29/23 09:42 B-Natriuretic Peptide 24 pg/mL (<100) 03/23/23 14:33 Total Protein 6.7 g/dL (6.5-8.0) 04/02/23 06:32 Albumin 3.8 g/dL (3.5-5.0) 04/02/23 06:32 Vitamin B12 451 pg/mL (200-900) 03/24/23 07:11 Folate 7.4 ng/mL (> or = 4.0) 03/24/23 07:11 Procalcitonin 0.52 ng/mL 03/29/23 09:42 TSH 1.13 uIU/mL (0.32-4.0) 04/02/23 06:32 Free T4 1.79 ng/dL (0.71-1.85) 03/23/23 14:33 Urine Color Dark Yellow 03/23/23 16:07 Urine Appearance Clear 03/23/23 16:07 Urine pH 6.5 (5.0-9.0) 03/23/23 16:07 Ur Specific [place] >= 1.030 (1.005-1.025) H 03/23/23 16:07 Urine Protein 30 (1+) mg/dL (Neg-Trace) H 03/23/23 16:07 Urine Glucose (UA) Negative mg/dL (Negative) 03/23/23 16:07 Urine Ketones 15 mg/dL (Negative) 03/23/23 16:07 Urine Blood Moderate (2+) (Negative) H 03/23/23 16:07 Urine Nitrite Negative (Negative) 03/23/23 16:07 Ur Leukocyte Esterase Small (1+) (Negative) H 03/23/23 16:07 Urine RBC 3-5 /HPF (0-2) H 03/23/23 16:07 Urine WBC 6-10 /HPF (0-5) H 03/23/23 16:07 Ur Squamous Epith Cells 3-5 /HPF (0-2) 03/23/23 16:07 Urine Bacteria Trace (None Seen) 03/23/23 16:07 Hyaline Casts 0-2 /LPF (0-2) 03/23/23 16:07 CSF Tube Number 1 03/29/23 13:30 CSF Tube Number 4 03/29/23 13:30 CSF Volume 2.0 ML 03/29/23 13:30 CSF Appearance CLEAR 03/29/23 13:30 CSF Color COLORLESS 03/29/23 13:30 CSF WBC 21 MM*3 H* 03/29/23 13:30 CSF RBC 1 MM*3 03/29/23 13:30 CSF Lymphocytes 99 % 03/29/23 13:30 CSF Monocytes % 1 % 03/29/23 13:30 CSF Appearance (b) Clear, Colorless 03/29/23 13:30 CSF Glucose 66 mg/dL 03/29/23 13:30 CSF Total Protein 63.6 mg/dL (15-45) H 03/29/23 13:30 CSF C.neoform/gat PCR Not Detected (Not Detect.) 03/29/23 13:44 CSF CMV DNA (PCR) Not Detected (Not Detect.) 03/29/23 13:44 CSF Enterovirus (PCR) Not Detected (Not Detect.) 03/29/23 13:44 CSF E. coli K1 (PCR) Not Detected (Not Detect.) 03/29/23 13:44 CSF H. influenzae (PCR) Not Detected (Not Detect.) 03/29/23 13:44 CSF HSV I (PCR) Not Detected (Not Detect.) 03/29/23 13:44 CSF HSV II (PCR) Not Detected (Not Detect.) 03/29/23 13:44 CSF HHV 6 (PCR) Not Detected (Not Detect.) 03/29/23 13:44 CSF L.monocytogenes PCR Not Detected (Not Detect.) 03/29/23 13:44 CSF N. meningitidis PCR Not Detected (Not Detect.) 03/29/23 13:44 CSF Parechovirus (PCR) Not Detected (Not Detect.) 03/29/23 13:44 CSF S. agalactiae (PCR) Not Detected (Not Detect.) 03/29/23 13:44 CSF S. pneumoniae (PCR) Not Detected (Not Detect.) 03/29/23 13:44 CSF VZV (PCR) Not Detected (Not Detect.) 03/29/23 13:44 Urine Opiates Screen Not Detected (Not Detect) 03/23/23 16:07 Urine Fentanyl Screen Not Detected (Not Detect) 03/23/23 16:07 Ur Barbiturates Screen Not Detected (Not Detect) 03/23/23 16:07 Ur Phencyclidine Scrn Not Detected (Not Detect) 03/23/23 16:07 Ur Amphetamines Screen Not Detected (Not Detect) 03/23/23 16:07 U Benzodiazepines Scrn Not Detected (Not Detect) 03/23/23 16:07 Urine Cocaine Screen Not Detected (Not Detect) 03/23/23 16:07 U Marijuana (THC) Screen POSITIVE (Not Detect) H 03/23/23 16:07 Ethyl Alcohol < 10 mg/dL 03/23/23 14:14 T.pallidum Ab (EIA) Nonreactive (Nonreactive) 03/29/23 09:42 Lyme Screen IgG & IgM <0.90 index 03/29/23 09:42 Lyme Progressive Test TNP 03/29/23 09:42 CMV Specimen Source BLOOD 03/28/23 14:21 CMV Qnt PCR IU/mL NOT DETECTED IU/mL (NOT DETECTED) 03/28/23 14:21 CMV Qnt PCR log IU/mL NOT DETECTED Log IU/mL (NOT DETECTED) 03/28/23 14:21 HIV 1&2 Ab/P24 Ag 4thGn Nonreactive (Nonreactive) 03/29/23 09:42 Influenza Type A (PCR) NEGATIVE (Negative) 03/24/23 01:42 Influenza Type B (PCR) NEGATIVE (Negative) 03/24/23 01:42 RSV RNA Qual (PCR) NEGATIVE (Negative) 03/24/23 01:42 SARS-CoV-2 RNA (RT-PCR) NEGATIVE (Negative) 03/24/23 01:42 ITS Impressions Chest X-Ray 03/23/23 14:20 IMPRESSION: Findings suggest bilateral basilar infiltrates left greater than right and possible right midlung subtle infiltrate. Follow-up recommended. No failure or effusion Head CT 03/23/23 18:49 IMPRESSION: No acute intracranial pathology. Chest CT 03/23/23 21:01 IMPRESSION: 1. Marked gibson emphysematous change of lungs. 2. Chronic bronchial wall thickening and left perihilar density extending into the left upper lobe. This is worse since prior CAT scan of 07/28/2022. Left hilum is prominent but unchanged in appearance since the CAT scan of 07/28/2022. Difficult to assess left eduard without IV contrast. Fleischner guidelines were followed. Abdomen Ultrasound 03/24/23 10:00 IMPRESSION: Limited visualization of the pancreas otherwise unremarkable exam. Brain MRI 03/26/23 11:06 IMPRESSION: 1. No acute intracranial abnormalities. 2. Mild underlying microangiopathy. Small chronic lacunar infarct of the left cerebellar hemisphere. Lumbar Puncture Fluoroscopy 03/29/23 14:10 IMPRESSION: Successful fluoroscopic-guided lumbar puncture performed. High CSF pressure was noted measuring 15 cm of water. EEG 03/29/23 FINDINGS:? Waking background activity consists of a diffuse moderate voltage 5 to 6 hertz theta with an abundance of high voltage muscle artifacts and sharp discharges related to muscle artifact.? Occasional bifrontal triphasic waves are seen. ? Photic stimulation and hyperventilation were omitted.? Patient is clinically noted to have some twitches and tremors during the recording.? She is not fully following commands.? No epileptiform discharges were seen. ? IMPRESSION:? This is an abnormal EEG due to diffuse background slowing and some bifrontal triphasic waves, which are most consistent with a metabolic encephalopathy.? No clear epileptiform discharges were seen. Brain MRI 03/31/23 20:46 IMPRESSION: No abnormal parenchymal or leptomeningeal enhancement. Limited study with motion artifacts. Chest CT 04/01/23 15:57 Abdomen/Pelvis CT 04/01/23 15:57 IMPRESSION: * Severe pulmonary emphysema. * A focal opacity of the posteromedial right upper lobe is probably benign but has developed a more nodular appearance when compared to 03/02/2022 and 07/28/2022. Based on Fleischner Society guidelines, recommend chest CT follow-up in the next 6-12 months. * Pancolonic diverticulosis without diverticulitis. * No evidence of any metastatic disease process in the chest, abdomen or pelvis. Pending studies at discharge: Pending at discharge 03/28/23 13:44 Cytology [PTH] Routine Labs on day of discharge: Laboratory Results - last 24 hr 04/02/23 04/02/23 04/02/23 06:32 06:32 06:32 WBC 24.2 H RBC 4.66 Hgb 14.3 Hct 42.2 MCV 90.6 MCH 30.7 MCHC 33.9 RDW 12.6 Plt Count 433 H MPV 8.6 L Absolute Nucleated RBC 0.000 Nucleated RBC % (auto) 0.0 Sodium 142 Potassium 4.2 Chloride 102 Carbon Dioxide 28 Anion Gap 16 BUN 13 Creatinine 0.67 Estim Creat Clear Calc 69.0 Estimated GFR > 60 Random Glucose 89 Calcium 9.4 Total Bilirubin 0.7 AST 15 ALT 29 Alkaline Phosphatase 67 Ammonia 41 Total Protein 6.7 Albumin 3.8 TSH 1.13 Discharge Plan Discharge Anticipated Discharge Date/Time: 04/02/23 12:26 Patient Disposition: [facility] Discharge Diagnosis: opsoclonus/myoclonus/ataxia encephalopathy lung nodule resolved: COPD exacerbation, pneumonia Referrals: Bakari Lozano MD [Primary Care Provider] - 1 Week Discharge Medications: New levothyroxine 88 mcg Tablet 88 mcg PO DAILY@0600 Qty: 1 0RF diazepam 2 mg Tablet 4 mg PO TID PRN (Reason: agitation) Qty: 1 0RF Continued Incruse Ellipta 62.5 mcg/actuation blister with device 1 inh inhalation DAILY 30 Days Qty: 30 3RF Breo Ellipta 200-25 mcg/dose blister with device 1 ea inhalation DAILY Qty: 60 3RF albuterol sulfate [Ventolin HFA] 90 mcg/actuation HFA aerosol inhaler 2 puff inhalation QID PRN (Reason: for wheezing) Qty: 18 0RF fluticasone propionate 50 mcg/actuation spray,suspension 1 spray intranasal BID ascorbic acid (vitamin C) [Vitamin C] 1,000 mg Tablet 1 g PO DAILY cholecalciferol (vitamin D3) [Vitamin D3] 25 mcg (1,000 unit) Tablet 25 mcg PO DAILY albuterol sulfate 2.5 mg /3 mL (0.083 %) solution for nebulization 2.5 mg inhalation Q6H PRN (Reason: Shortness Of Breath Or Wheezing) simvastatin 40 mg tablet 40 mg PO BEDTIME pantoprazole 40 mg tablet,delayed release (DR/EC) 40 mg PO DAILY@0630 Discontinued cetirizine 10 mg Tablet 10 mg PO DAILY PRN (Reason: Allergic Symptoms) prednisone 20 mg Tablet 20 mg PO BID PRN (Reason: copd exacerbation) levothyroxine 100 mcg tablet 100 mcg PO DAILY@0600 sertraline 50 mg tablet 50 mg PO DAILY Discharge Orders: Discharge Order (Routine); Ordered 04/02/23 Ordered By: Shana Cotter Diet: Advance to usual diet Activity on Discharge: As tolerated Stand Alone Forms: Patient Portal Discharge page Care Plan Goals: Diagnosis and management of movement disorder, 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
--- NOTE | 2023-04-02 13:04 | MHC.CM.PN ---
Per Dr Cotter Patient will transfer to [facility] when a bed becomes available. She will transport via ALS.
--- NOTE | 2023-04-02 14:23 | P.PNNE_ITS ---
Subjective Subjective Date of Service: 04/02/23 Interval History: Very anxious, tremulous and confused. Frequently says it stopped . Will follow simple commands and 2 step commands Ongoing opsoclonus. Jerky limb movements Unable to get out of bed, very ataxic Critical Care Time (minutes): 0 Physical Exam Vital Signs: Vital Signs: Last Vital Signs Temp 96.9 F 04/02/23 11:12 Pulse 92 04/02/23 11:12 Resp 20 04/02/23 11:12 BP 126/81 04/02/23 11:12 Pulse Ox 96 04/02/23 11:12 O2 Del Method Nasal Cannula 04/02/23 11:12 O2 Flow Rate 2 04/02/23 11:12 Oxygen Flow Rate 2 03/23/23 12:10 BMI result Body Mass Index 25.4 Const: General: comfortable, no acute distress, alert, awake and confusion (Partially) Nutritional Appearance: average body habitus Orientation/consciousness: oriented to person, oriented to place and confusion (Partially) HEENT: Head: Yes normal to inspection General nose exam: No nasal polyps present and No nasal discharge present Face and sinus: Yes sinuses nontender Mouth: oropharynx normal Throat: Yes posterior oropharynx normal Eyes: General: appearance normal, both eyes and all related structures Neck: Neck: Yes normal visual inspection, Yes no lymphadenopathy, Yes trachea midline and Yes no JVD Thyroid: Thyroid normal Chest: Chest palpation & inspection: normal inspection of the chest, normal palpation of entire chest wall and no tenderness Resp: Other: Percussion note hyper-resonant, breath sounds are very distant on both sides, No definite wheezes or crepitations are heard. Effort & Inspection: normal respiratory effort, able to speak in complete sentences, no respiratory distress and no use of accessory muscles Cardio: Palpation: normal PMI Rate: regular rate Rhythm: regular rhythm Heart sounds: S1 normal heart sound present, S2 normal heart sound present, no gallops and no murmurs GI: Inspection: No distended Palpation (GI): Soft to palpation, nontender, No hepatosplenomegaly present and no masses Auscultation: normal bowel sounds Back/Spine/Pelvis: Thoracic/Lumbar Spine: thoracic and lumbar spine normal to inspection Skin: General skin exam: no rashes or lesions noted Neuro: Other: She is awake but confused verbalizes in short sentences sometimes not making any sense and frequently repeating it was stopped she has trouble expressing herself. She follows 1 and two-step commands with some repetition. She has random jerking eye movements multi directional consistent with opsoclonus. She is twitchy muscle movements all over in generalized tremulousness and dysmetria on [id number] test. Her strength is intact in all 4 extremities and able to move all 4 extremities against gravity and against resistance to command. Plantar responses are flexor. Neck is supple. General: oriented to person, oriented to place, moves all extremities and confusion (Partially) Cranial nerves: Yes CN's II-XII intact bilaterally Extrem: General: Yes normal to inspection, Yes no clubbing, cyanosis or edema, Yes no pedal edema and Yes no calf tenderness Psych: Speech and movement: Normal speech and movement present Objective Data Labs 04/02/23 06:32 04/02/23 06:32 Labs: Laboratory Results - last 24 hr 04/02/23 04/02/23 04/02/23 06:32 06:32 06:32 WBC 24.2 H RBC 4.66 Hgb 14.3 Hct 42.2 MCV 90.6 MCH 30.7 MCHC 33.9 RDW 12.6 Plt Count 433 H MPV 8.6 L Absolute Nucleated RBC 0.000 Nucleated RBC % (auto) 0.0 Sodium 142 Potassium 4.2 Chloride 102 Carbon Dioxide 28 Anion Gap 16 BUN 13 Creatinine 0.67 Estim Creat Clear Calc 69.0 Estimated GFR > 60 Random Glucose 89 Calcium 9.4 Total Bilirubin 0.7 AST 15 ALT 29 Alkaline Phosphatase 67 Ammonia 41 Total Protein 6.7 Albumin 3.8 TSH 1.13 Microbiology Microbiology Results: Microbiology 03/29/23 13:30 Cerebrospinal Fluid Gram Stain - Final 03/29/23 13:30 Cerebrospinal Fluid CSF Examination - Final 03/29/23 13:30 Cerebrospinal Fluid Fluid Description - Final 03/29/23 13:30 Cerebrospinal Fluid CSF Culture - Final No growth after 3 days. 03/23/23 14:33 Blood - Venous Blood Culture - Final No growth after 5 days. 03/23/23 14:14 Blood - Venous Blood Culture - Final No growth after 5 days. 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 MRIs of the brain have been unremarkable except for mild chronic microvascular changes and remote lacunar infarct in the cerebellum EEG did not show any merline epileptiform discharges but a lot of 3-5 hertz theta and some bifrontal triphasic waves as well as some spiky discharges randomly which were thought to be muscle. Spinal fluid revealed 21 white cells 90% lymphocytes and mildly elevated protein of 63.6 with a normal glucose. PCR tests were negative. Paraneoplastic panel is pending recommendations: She is being transferred to a tertiary care center to the Neurology Department at [facility] for further evaluation and treatment. Family is agreeable with this. She will need some sedation for her journey and possibly the companionship of her in the ambulance if permitted. (2) Tedphqtjai-dhlamfyna-[id number] syndrome: Status: Acute Assessment and Plan: As discussed above under acute encephalopathy (3) COPD exacerbation: Status: Acute (4) Pneumonia: Status: Acute (5) Pulmonary nodule: Status: Acute Plan hosp d#[id number] 63yo F with COPD + chronic hypoxic resp failure on 2L O2, HOCM, GERD, HTN, HLD, hypothyroidism, seasonal allergy presented with generalized weakness, dizziness, and confusion admitted for AMS developed persistent twitching movements + clonus + nystagmus # twitching movements, clonus, opsoclonus vs nystagmus, ataxia # encephalopathy, acute - MRI neg for acute or subacute stroke, showing chronic lacunar infarct. - EEG per Dr Horvath: Diffuse slowing with some frontal triphasic waves consistent with metabolic encephalopathy. No seizure discharges. - pCO2 normal, ammonia normal after 1 dose of lactulose, normal LFTs + normal renal function - hold sertraline though not on any other medications that would contribute to serotonin syndrome - LP done, CSF shows elevated protein to 64, lymphocytic pleocytosis with 21 WBCs, 99% lymphs. PCR panel negative but started on acyclovir empirically 03/29. ID consult pending. Also pending: serum + CSF Lyme, oligoclonal bands, immunofixation. HIV + T. pallidum negative. Discussed again with Dr Horvath from Neuro who doubts this is a seizure disorder. Repeat MRI with contrast unrevealing. - I am concerned she has [id number]-[id number] syndrome and have added CSF paraneoplastic antibody panel- [facility] send-out. The lab will call me tomorrow to ensure there is adequate CSF to run the test. Other tests ordered from serum pending: - JOHN - antiphospholipid antibody panel (B2GP, lupus anticoagulant) - anti-Yo - anti-Hu CT C/A/P 04/01/23 showed: A focal opacity of the posteromedial right upper lobe has developed a more nodular appearance than its linear appearance on 03/02/2022 and 07/28/2022; it has average diameter of 0.8 cm and due to interval increased prominence, follow- up evaluation is recommended To discuss with Heme/Onc. Also ill discuss with Dr Horvath whether transfer to tertiary care center might be indicated - meclizine for component of vertigo - start diazepam for anxiety # acute COPD exac with possible PNA - CT of chest showed chronic bronchial wall thickening and left perihilar density extending into the left upper lobe, worse than prior CT on 07/28/2022 - seen by Pulmonology - rec breathing treatments, Solu-medrol 1-2 days then prednisone 40 mg for 5 days, ceftriaxone for 5 days completed - continue Breo, prn neb treatments # UTI - completed 5d ceftriaxone # chronic hypoxic RF - home O2 2L # N/V - resolved # hypoNa, mild - resolved # GERD - continue PPI # HLD - continue statin # hypothyroidism - TSH over-suppressed; LT4 dose decreased # depression - sertraline held as above # VTE ppx: LMWH # dispo - eventual STR In my clinical judgment, the patient requires continued inpatient hospitalization for the following reasons: neurological workup Time Spent With Patient Time: Total time managing care of this patient today ____ minutes. Procedures Date of Service Date of Service: 04/02/23 Quality Stroke Does the patient have a stroke diagnosis?: No VTE Prior VTE?: No VTE Risk Level:: Medical - moderate - high VTE Device Contraindication: Treatment Not Indicated VTE Drug Contraindication: N/A - Med Ordered
[2023-04-02 15:42] VITALS: BP 112/70; PULSE 90; RESP 20; TEMP 36.2; O2SAT 98
[2023-04-02] MEDS: diazePAM 5 MG TABLET PO (15:50)
[2023-04-04 14:39] LABS: Anti Nuclear Antibody Screen NEGATIVE (NEGATIVE)
[2023-04-04 18:28] LABS: Calcium (PTHI) 9.2 mg/dL (8.6-10.4); PTHI 56 pg/mL (16-77)
[2023-04-05 14:38] LABS: Albumin 3.4 g/dL (3.6-5.1); Albumin, CSF 35.3 mg/dL (8.0-42.0); IgG 926 mg/dL (600-1540); IgG Synthesis Rate 15.4 mg/24 h (-9.9-3.3)
[2023-04-05 16:49] LABS: Lyme IgG CSF Immunoblot NO BANDS DETECTED; Lyme IgM CSF Immunoblot NO BANDS DETECTED
[2023-04-05 20:43] LABS: Oligoclonal Banding Present (Absent)
[2023-04-06 15:44] LABS: VDRL Qualitative CSF Nonreactive (Nonreactive)
[2023-04-06 16:44] LABS: Myelin Basic Protein <2.0 mcg/L (<=4.0)
[2023-04-07 07:09] LABS: PTT (LAC) Screen 29 sec (<=40)
[2023-04-09 07:23] LABS: Beta-2 Glycoprotein IgA <2.0 U/mL (<20.0); Beta-2 Glycoprotein IgG <2.0 U/mL (<20.0); Beta-2 Glycoprotein IgM <2.0 U/mL (<20.0)
[2023-04-09 07:57] LABS: Hu Antibody Screen, IFA Serum NEGATIVE (NEGATIVE); Yo Antibody, Serum Screen NEGATIVE (NEGATIVE)
[2023-04-24 09:18] LABS: Albumin, CSF 35.5
== END 2023-04-02 16:10 | disposition short-term general hospital (02) | DRG 190 ==
LOC: HO.ED 21:31 → HO.EDOVER 22:44 → HO.IMC 03-24 00:24
PROVIDERS: Nurse Practitioner Acute Care; Physician Assistant; Physician Assistant Medical; Radiology Diagnostic Radiology; Student in an Organized Health Care Education/Training Program; Admitting Provider Student in an Organized Health Care Education/Training Program; Emergency Provider Emergency Medicine; PCP Family Medicine; Visit Provider Family Medicine
PROC: 009U3ZZ Drainage of Spinal Canal, Percutaneous Approach (ICD-10-PCS; CPT 62270; principal; 2023-03-29 11:30)
DX: J44.0 Chronic obstructive pulmonary disease with (acute) lower respiratory infection (principal); G92.8 Other toxic encephalopathy; J18.9 Pneumonia, unspecified organism; J96.11 Chronic respiratory failure with hypoxia; E87.1 Hypo-osmolality and hyponatremia; N39.0 Urinary tract infection, site not specified; E78.5 Hyperlipidemia, unspecified; J44.1 Chronic obstructive pulmonary disease with (acute) exacerbation; F32.A Depression, unspecified; G25.2 Other specified forms of tremor; E03.8 Other specified hypothyroidism; H83.2X9 Labyrinthine dysfunction, unspecified ear; A08.4 Viral intestinal infection, unspecified; R91.1 Solitary pulmonary nodule; Z99.81 Dependence on supplemental oxygen; Z87.891 Personal history of nicotine dependence; Z79.51 Long term (current) use of inhaled steroids; Z79.890 Hormone replacement therapy; Z79.899 Other long term (current) drug therapy
CPT/HCPCS: 0241U; 36415; 62328; 70450; 70551; 70552; 71045; 71250; 71260; 74177; 76705; 80048; 80053; 80076; 80307; 81001; 82042; 82140; 82550; 82607; 82746; 82803; 82945; 82947; 83605; 83735; 83873; 83880; 83916; 83970; 84145; 84157; 84166; 84181; 84439; 84443; 84484; 85025; 85027; 85597; 85610; 85613; 85652; 85730; 86038; 86140; 86146; 86255; 86256; 86335; 86592; 86617; 86618; 86780; 87015; 87040; 87070; 87086; 87102; 87116; 87205; 87206; 87389; 87483; 87497; 88108; 89051; 93005; 94640; 95816; 97110; 97161; 97166; 97530; 97535; 99285; A9585; C1758; J0133; J0696; J1650; J2405; J2920; Q9967